=== PATIENT | female | born 1945 | race Caucasian/White ===

== ENCOUNTER 2022-12-31 10:28 | Outpatient (CLI) | payer MEDICARE, SELFPAY ==
--- NOTE | 2022-12-31 11:01 | DI.RAD_ITS ---
Exam(s) XR STANDING ALIGNMENT EXAM: XR STANDING ALIGNMENT CLINICAL HISTORY: TKA planning. TECHNIQUE: 2D digital imaging was performed. Standing AP views were performed from the pelvis throu gh the ankles. COMPARISON: CR XR KNEE 1 OR 2V BILAT-M2 from 06/24/2022 CR XR KNEE 1 OR 2V RT from 06/24/2022 FINDINGS: BONES: No acute fracture is present. No bony destructive lesion is seen. Leg length discrepancy: Marked overall leg length discrepancy, with the left femoral head projecting approximately 2.5 cm superior to the right. JOINTS: Knees: Severe narrowing of the lateral femoral tibial joint of the right knee with prominent periarticular spurring. Marked widening of the medial femoral tibial joint space, marked valgus angu lation. Posterior large loose body. Severe narrowing medial femoral tibial joint of left knee and p eriarticular spurring. The ankle joints are unremarkable. The hip joints not well visualized due to patient body habitus. Grossly maintained. SOFT TISSUE: Lower leg edema. IMPRESSION: Severe degenerative changes of both knees. Marked leg length discrepancy. DATA REPOSITORY: RADIATION DOSE DELIVERED:
== END 2022-12-31 10:29 | disposition home or self-care (01) ==
LOC: DIORS 10:28
PROVIDERS: PCP Internal Medicine; Referring Provider Internal Medicine; Visit Provider Physician Assistant
DX: M17.9 Osteoarthritis of knee, unspecified (principal); M17.11 Unilateral primary osteoarthritis, right knee; M17.12 Unilateral primary osteoarthritis, left knee; I48.91 Unspecified atrial fibrillation; E11.9 Type 2 diabetes mellitus without complications
CPT/HCPCS: 99203; 77073

== ENCOUNTER 2023-02-21 01:09 | Outpatient (CLI) | payer MEDICARE, SELFPAY ==
[2023-02-21 15:00] LABS: HCT 40.1 % (36.0-46.0); HGB 12.8 g/dL (11.2-15.7); MCH 26.4 pg (27.0-33.0); MCHC 31.9 % (32.0-36.0); MCV 83 fL (80-95); MPV 9.4 fL (8.0-11.0); Platelet Count 310 10^3/uL (130-400); RBC 4.85 10^6/uL (3.93-5.22); RDW 14.5 % (11.7-14.6); RDW-SD 42.6 fL; WBC 12.45 10^3/uL (4.4-10.8)
[2023-02-21 16:03] LABS: Anion Gap 7.1 mmol/L (3-11); BUN 22 mg/dL (7-18); CO2 27.9 mmol/L (21.0-32.0); Calcium 9.6 mg/dL (8.5-10.1); Chloride 103 mmol/L (98-107); Estimated GFR 58.02 (mL/min/1.73m2); Glucose 92 mg/dL (74-106); Potassium 3.8 mmol/L (3.5-5.1); Sodium 138 mmol/L (136-145)
== END 2023-02-21 01:10 | disposition home or self-care (01) ==
PROVIDERS: PCP Internal Medicine; Visit Provider Student in an Organized Health Care Education/Training Program
DX: M17.11 Unilateral primary osteoarthritis, right knee (principal); Z01.818 Encounter for other preprocedural examination
CPT/HCPCS: 36415; 80048; 85027

== ENCOUNTER 2023-02-21 14:33 | Outpatient (CLI) | payer MEDICARE, SELFPAY ==
--- NOTE | 2023-02-21 13:30 | DI.RAD_ITS ---
Exam(s) XR KNEE RT 1V EXAM: XR KNEE RT 1V CLINICAL HISTORY: PRE OP R KNEE. TECHNIQUE: 2D digital imaging was performed of the right knee. One views obtained. Lateral views w ere obtained. COMPARISON: CR XR KNEE 1 OR 2V BILAT-M2 from 06/24/2022 CR XR STANDING ALIGNMENT from 12/31/2022 FINDINGS: A single lateral view is obtained. There are degenerative changes seen in the knee with joint space narrowing of the patellofemoral joint. No joint effusion is seen. The bones appear normally mineral ized. A marker ball is included on the image. IMPRESSION: Limited examination shows degenerative changes of the right knee. DATA REPOSITORY: RADIATION DOSE DELIVERED:
== END 2023-02-21 14:34 | disposition home or self-care (01) ==
LOC: DIORS 14:34
PROVIDERS: PCP Internal Medicine; Visit Provider Physician Assistant
DX: M17.11 Unilateral primary osteoarthritis, right knee (principal); Z01.818 Encounter for other preprocedural examination
CPT/HCPCS: 36415; 80048; 85027; 73560

== ENCOUNTER 2023-03-08 06:43 | Day surgery (SDC) | payer MEDICARE, SELFPAY ==
[2023-03-08] VITALS (14 sets, daily range): BP systolic 108–139; BP diastolic 59–87; PULSE 87–99; RESP 13–21; TEMP 36–36.6; O2SAT 90–97; BMI 41.8
[2023-03-08] MEDS: Gabapentin 300 MG CAP PO (07:42)
[2023-03-08] MEDS: Celecoxib 200 MG CAP 400 MG PO (07:42)
[2023-03-08] MEDS: Acetaminophen 500 MG TAB 1000 MG PO (07:43)
[2023-03-08] MEDS: Lactated Ringers 1,000 ML 80 ML IV (08:20)
--- NOTE | 2023-03-08 08:20 | ANES.PREOP_ITS ---
General Info Date of Service Date Performed: 03/08/23 Height: 5 ft 5 in Weight: 114.1 kg Body Mass Index (BMI): 41.8 Surgical Procedure: Operation Date: 03/08/23 09:25 Proposed Procedure Side Surgeon p Knee Total Arthroplasty, OrthAlign, Cemented PS Right Sandeep Willett MD Meds Allergies and Home Medications Allergies Allergy/AdvReac Type Severity Reaction Status Date / Time latex Allergy Skin Rash Verified 03/08/23 07:33 lisinopril Allergy Cough Verified 03/08/23 07:33 Home Medication Medication Instructions Recorded allopurinol 100 mg tablet 100 mg PO DAILY 10/06/22 metformin 500 mg tablet 500 mg PO DAILY 10/06/22 metoprolol succinate 200 mg 200 mg PO DAILY 10/06/22 capsule sprinkle, ext. release 24 hr valsartan 320 mg tablet 320 mg PO DAILY 10/06/22 apixaban 5 mg tablet (Eliquis) 5 mg PO BID 12/31/22 semaglutide 1 mg/dose (4 mg/3 mL) 1 mg subcut QWEEK 12/31/22 subcutaneous pen injector (Ozempic) acetaminophen 500 mg tablet 1,000 mg (2 x 500 mg) PO Q8H PRN 03/08/23 pain #90 tabs celecoxib 200 mg capsule (Celebrex) 200 mg PO BID PRN #60 caps 03/08/23 docusate sodium 100 mg capsule 100 mg PO BID #30 caps 03/08/23 (Colace) gabapentin 300 mg capsule 300 mg PO QHS #14 caps 03/08/23 oxycodone 5 mg tablet 5 mg PO Q4H PRN #18 tabs 03/08/23 pantoprazole 40 mg tablet,delayed 40 mg PO DAILY #14 tabs 03/08/23 release Current Visit Medications: Current Medications Generic Name Dose Route Start Last Admin Trade Name Freq PRN Reason Stop Dose Admin Acetaminophen 1,000 mg 03/08/23 06:00 03/08/23 07:43 Acetaminophen 500 Mg Tab PO 03/08/23 16:00 1,000 mg PREOP ROBBI Administration Celecoxib 400 mg 03/08/23 06:00 03/08/23 07:42 Celecoxib 200 Mg Cap PO 03/08/23 16:00 200 mg PREOP ROBBI Administration Gabapentin 300 mg 03/08/23 06:00 03/08/23 07:42 Gabapentin 300 Mg Cap PO 03/08/23 16:00 300 mg PREOP ROBBI Administration Hydromorphone HCl 0.5 mg 03/08/23 07:38 Hydromorphone 2 Mg/Ml Syr IVP 04/07/23 07:37 Q2H PRN PRN Tranexamic Acid 1,000 mg/ 60 mls @ 360 mls/hr 03/08/23 06:00 Sodium Chloride IVPB 04/07/23 05:59 PREOP ROBBI Ringer's Solution 1,000 mls @ 80 mls/hr 03/08/23 06:00 IV 03/08/23 23:59 INFUSION ROBBI Cefazolin Sodium/Dextrose 2 gm in 50 mls @ 100 mls/hr 03/08/23 06:00 Ancef Duplex IVPB 03/08/23 23:59 PREOP ROBBI Cefazolin Sodium/Dextrose 1 gm in 50 mls @ 100 mls/hr 03/08/23 08:00 Ancef Duplex IVPB 03/09/23 00:29 Q8H ROBBI IV Miscellaneous Supplies 1 each 03/08/23 06:00 Iv Access IV 03/08/23 23:59 DIRECTED ROBBI Ondansetron HCl 4 mg 03/08/23 07:38 Ondansetron 4 Mg/2 Ml Vial IVP 04/07/23 07:37 Q6H PRN PRN Nausea Oxycodone HCl 0 mg 03/08/23 07:38 Oxycodone 5 Mg Tab PO 04/07/23 07:37 Q3H PRN PRN Pain Sodium Chloride 0 ml 03/08/23 06:00 Normal Saline Flush 10 Ml Syr IV 03/08/23 23:59 PRN PRN Sodium Chloride 0 ml 03/08/23 06:00 Normal Saline 10 Ml Vial IJ 03/08/23 23:59 DIRECTED PRN Sterile Water 0 ml 03/08/23 06:00 Water,Injection,Sterile 10 Ml Vial IJ 03/08/23 23:59 DIRECTED PRN PFSH Active Problems Active Problems: Problem Status Onset Code Atrial fibrillation I48.91 Primary osteoarthritis of left knee M17.12 Primary osteoarthritis of right knee M17.11 Type 2 diabetes mellitus E11.9 Hyperlipidemia E78.5 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 Medical History Medical History Cardiac murmur Urinary incontinence Umbilical hernia Severe obesity Gout Benign neoplasm of adrenal gland Surgical History Surgical History H/O bilateral breast reduction surgery H/O tubal ligation History of appendectomy H/O abdominoplasty H/O: hysterectomy Hx of cholecystectomy H/O umbilical hernia repair History of colonoscopy date of procedure 11/29/18 History of esophagogastroduodenoscopy Tobacco Smoking/Tobacco Use Status: Former Tobacco Use Alcohol Alcohol Intake: never Substance Use Substance use: Never Substance use type: does not use Vital Signs and Lab Results Vital Signs Most Recent Vital Signs in EMR: Most Recent Vital Signs Temp Pulse Resp BP Pulse Ox 36.6 C 93 H 18 133/75 97 03/08/23 07:26 03/08/23 07:26 03/08/23 07:26 03/08/23 07:26 03/08/23 07:26 Point of Care Results Point of Care Results: Finger Stick Blood Glucose 107 03/08/23 07:33 Lab Results 02/09/23 14:08 Blood Type / Crossmatch: 2 No Data to Display Complete Blood Count: 2 White Blood Count 12.45 10^3/uL (4.4-10.8) H 02/21/23 14:45 Red Blood Count 4.85 10^6/uL (3.93-5.22) 02/21/23 14:45 Hemoglobin 12.8 g/dL (11.2-15.7) 02/21/23 14:45 Hematocrit 40.1 % (36.0-46.0) 02/21/23 14:45 Platelet Count 310 10^3/uL (130-400) 02/21/23 14:45 Complete Metabolic Panel: 2 Sodium 138 mmol/L (136-145) 02/21/23 14:45 Potassium 3.8 mmol/L (3.5-5.1) 02/21/23 14:45 Chloride 103 mmol/L (98-107) 02/21/23 14:45 Carbon Dioxide 27.9 mmol/L (21.0-32.0) 02/21/23 14:45 BUN 22 mg/dL (7-18) H 02/21/23 14:45 Creatinine 1.0 mg/dL (0.55-1.02) 02/21/23 14:45 Est GFR (CKD-EPI 2020) 58.02 (mL/min/1.73m2) 02/21/23 14:45 Calcium 9.6 mg/dL (8.5-10.1) 02/21/23 14:45 Glucose 92 mg/dL (74-106) 02/21/23 14:45 Liver Function Panel: 2 No Data to Display Coagulation Panel: 2 No Data to Display Cardiac Panel: 2 No Data to Display Arterial Blood Gas: 2 No Data to Display Venous Blood Gas: 2 No Data to Display Pancreas Panel: 2 No Data to Display Thyroid Panel: 2 No Data to Display Infectious Disease: 2 No Data to Display Blood Cultures: 2 No Data to Display Toxicology Panel: 2 No Data to Display Imaging and Studies Imaging and Studies Study information below may be from another EMR and interpreted by another provider. Please see original notes in EMR for more complete details. Echocardiogram Summary: Reviewed ECHO from [facility]. Please see that scanned record. Anesthesia Assessment and Plan Anesthesia History Personal History: No History of Anesthesia Complications Family History: No Family History of Anesthesia Complications Exercise Tolerance Exercise Tolerance: Metabolic Equivalents>4 Pertinent Negatives Pertinent Negatives: No Symptoms of GERD, No Major Pulmonary Symptoms or Complaints and No History of CVA/TIA Cardiac & Pulmonary Exam Cardiac Exam: Heart Murmur Present Pulmonary Exam: Clear Bilateral Breath Sounds Implantable Cardiac Device Does patient have a Pacemaker or an ICD?: No Airway Exam Known Difficult Airway: No Mallampati Class: 2 Mouth Opening: Normal (> 3cm) Thyromental Distance: Greater than 3 cm Neck Range of Motion: Full ROM Neck Circumference: Normal Teeth Condition: Removable Dentures/Plates Upper and Edentulous ASA Classification ASA Score: ASA 3 Emergency Case?: No NPO Status NPO Status: NPO Clears >2 hours, Solids >8 hours Anesthesia Plan Resuscitation Status: Full Code Anesthesia Technique: Spinal Anesthesia Airway Planned: Natural Airway Pain Management: Surgeon and patient request nerve block Monitors Used: Standard Monitors
--- NOTE | 2023-03-08 09:01 | ANES.NERVE_ITS ---
Nerve Block Single Injection Procedure Date and Time Date Performed: 03/08/23 Procedure Start: 08:51 Location Where Procedure Performed Procedure Location: Day Surgery Unit Reason Performed: Postoperative Analgesia Requesting Provider: Sandeep Willett Timeout Performed Timeout Performed: Yes Monitoring Used ECG, Blood Pressure and SpO2 Sterility Sterility: Hand Hygiene, Surgical Cap, Surgical Mask, Sterile Gloves and Chlorhexidine Sedation Given During Procedure Sedation Given (Indicate Dose Given): No Sedation given Patient Mental Status Patient Mental Status: Awake Nerve Block 1st Nerve Block: Laterality: Right Block Type: Adductor Canal Ultrasound Image Saved?: Yes Needle / Catheter Used: 100mm SonoPlex II Local Anesthetic Bolus (Indicate Dose Given): Lidocaine used for local infiltration of skin, Injected in 3-5ml increments after negative blood aspiration and Bupivacaine 0.25% Dose:: 15 ml Additives (Indicate Dose Given): None Ultrasound: Sterile probe cover and gel used Nerve Stimulator: Supplement to Ultrasound use and No twitch or parast hesia noted < 0.5 mA Paresthesia: None Procedure Tolerated: No Complications and Patient tolerated well Procedure Outcome: Successful Performed By: Shadi Mosley
[2023-03-08] MEDS: ceFAZolin 2 GM/50 ML BAG IVPB (09:29)
[2023-03-08] MEDS: ceFAZolin 1 GM/50 ML BAG IVPB (10:06)
--- NOTE | 2023-03-08 12:41 | W.PM.OP ---
Date of service: 03/08/23 Time of Service: 10:00 Operative Note Operative Note DATE OF PROCEDURE: 03/08/23 PRE-OP DIAGNOSIS: Right Knee Osteoarthritis with Valgus Deformity POST-OP DIAGNOSIS: same PROCEDURE: Right Total Knee Replacement with Intraoperative Navigation SURGEON: Sandeep Willett AEROSPACE ASSEMBLER: Jacquelyn Castillo ANESTHESIA TYPE: General LMA/ETT Refer to Anesthesia Record ESTIMATED BLOOD LOSS: 250 PATHOLOGY: none sent TOURNIQUET TIME: 0 COMPLICATIONS: None Patient was transported to: PACU Patient's condition: stable Implants: 1. Depuy Attune Cementless Cruciate Retaining Femoral Component, Size 6 2. Depuy Attune Cementless Fixed Bearing Tibial Component, Size 5 3. Depuy Attune 6x12 CR/FB Poly 4. Depuy Attune Patellar Component, Size 35 Indications: I have seen Monique in clinic for symptoms of RIGHT knee arthritis with a significant valgus deformity. Monique has exhausted nonoperative methods and was having significant limitations in daily function and desired better function and less pain. I discussed the technical details of a knee replacement. I explained the risks of the procedure to include, but not limited to, bleeding, infection, pain, stiffness, fracture, damage to nerves and vessels, damage to muscles and tendons, loosening, need for repeat procedure, blood clot and cardiopulmonary demise. Despite these risks, she elected to proceed. Findings: There was significant signs of arthritis throughout the knee, particularly of the lateral tibia. Procedure Description: Monique was greeted in the preoperative holding area where the correct side was identified and marked. The consent was reviewed with the patient and signed. The history and physical was updated. All questions were answered. Preoperative mediacations were administered: Acetaminophen 1000mg, Celebrex 400mg, and Gabapentin 300mg. An adductor canal block was then administered by the anesthesia team in the PACU. Monique was taken back to the operating room. A spinal anesthestic was then attempted but was unsuccessful and thus converted to a general anesthetic. The patient was placed into the supine position on the operating room table. A nonsterile tourniquet was placed high onto the leg. Posts were placed for positioning during the procedure. All bony prominences were well padded. Prophylactic antibiotics in the form of Cefazolin were administered. 1g of Tranxemic Acid was given intravenously within 30 minutes of incision. The right leg was then prepped with Chloraprep and draped in a standard fashion with impervious stockinette. A second prep with Chloraprep was performed prior to application of Iodine impregnated skin protection. A timeout to confirm correct identity, side and site, procedure, allergies, anesthesia, and medical concerns was performed. With the knee in some flexion, a midline incision was made overlying the knee. Full thickness skin flaps were raised once the extensor mechanism was encountered. These were raised medially and laterally. Any bleeding was controlled with electrocautery. Once the extensor mechanism was fully exposed, a medial parapatellar arthrotomy was performed in a flexed position. All bleeding from the arthrotomy and the geniculate arteries was coagulated. A medial subperiosteal peel was performed with electrocautery to the midcoronal plane. The fat pad was removed while keeping the patellar tendon protected. The anterior distal femur synovium was removed for later visualization. The ACL and PCL were resected and the anterior horn of the lateral meniscus was transected. The knee was then flexed with the patella everted. Large osteophytes from the tibia were removed. Large osteophytes from the femur were removed. A single starting pin was then placed 1cm anterior to the PCL insertion and the notch in the direction of the femoral head. The OrthoAlign device was applied over the pin. It was oriented to be in line with the epicondylar axis and the trochlear groove. It was then pinned into place. The navigation computer was then turned on and calibrated. The distal femur cut was set at 0.5 degrees valgus and 3.5 degrees flexion. The distal femur cutting guide then was positioned for a 9mm cut. The distal femur was cut with an oscillating saw while protecting the soft tissues. The tibia was then addressed. The OrthoAlign device was placed over the tibial tubercle and medial tibia and secured into position. Once again, OrthoAlign was calibrated and then set for a 1 degree varus cut and 5 degrees of posterior slope. With this locked into position, the cut thickness stylus was used to assess cut thickness. The lateral side, most involved side, was set for a 3mm cut. This was then held in position and pinned into place with 2 additional pins and a cross pin for stability. The medial and lateral collateral ligaments were protected and the cut was performed. With this completed, it was assessed and noted to be of appropriate dimensions. The guide and OrthoAlign was removed. A spacer block was inserted and the knee was brought into extension to ensure enough space was present. . The Orthoalign gap balancing device was then placed in extension. This was used to ensure that the ligaments were properly balanced with up to 2 to 3 mm laxity laterally compared medially. The extension gap was measured as 23mm. The knee was then brought into 90 degrees of flexion and the ligament block handler was once again placed. Under the same amount of force the flexion gap was measured. The Attune specific jig was placed and the flexion gap was made to match the extension gap. The femur was then sized as a size 6. The 4-in-1 cutting guide was the placed. An christina wing was used to confirm appropriate position of the anterior cut to avoid notching. This cutting guide was ensured to be flush on the cut surface and then pinned into place with headed pins. While protecting the soft tissues, quad tendon, and collateral ligaments, the anterior and posterior cuts were performed with a saw. The central two pins were removed and the posterior and anterior chamfers were cut next. The notch-cutting guide was placed. This was pinned to lateralize the femoral component as much as possible while keeping it flush on the cut surface. This was then pinned into position. A saw was used to make the notch cut. A rasp smoothed the cut surfaces. The medial and lateral menisci were removed. A trial femoral component was then inserted, impacted down to the cut surfaces, and the lug holes were drilled. A provisional trial tibial component was placed and the knee was brought through range of motion. The polyethylene was trialed until there was good flexion and extension with excellent stability to the medial and lateral collaterals. The patella was tracking without thumbs. A size 12 polyethylene component provided the best range of motion and stability with less than 2mm gapping with medial and lateral stress and full extension without significant hyperextension. The tibial cut surface was fully exposed. The tibia was then sized as a 5. The tibia had been previously marked during trialing to correspond to the center of the tibial component to help with rotation. The trial was aligned to this haile, approximately rotated to the medial 1/3rd of the tibial tubercle. The trial was pinned into place. The tibia was prepared with a reamer and a keel punch and lug holes. The knee was then brought into extension and the patella was measured as 22mm. Using the patellar clamp and cut guide, this was resected to a flat surface with at least 13mm of thickness remaining. The size 35 patella fit the best. This was oriented and then clamped into position. The lugs were drilled. The trial components were removed. The final components were opened on the back table. The periosteal and capsular tissues, especially posteriorly, around the knee were then systematically injected with a periarticular cocktail consisting of 246mg of Ropivacaine, 0.5mg of Epinephrine, 0.08mg of Clonidine, and 30mg of Ketorolac, diluted to 100cc. On the back table, with the implants opened, the cement was mixed. One batch of high viscosity cement was prepared with vacuum assistance. After the cement was ready a small amount was placed on the cut surface of the patella and the patellar button was clamped into position and held. While the cement was hardening, the cementless knee components were placed. Starting with the tibial component, the tibia was subluxed anteriorly and the lug holes of the component were lined up. The tibia was then impacted with an impactor and mallet until the tibial component was in contact with the tibia. Then, the femoral component was inserted. The lug holes were aligned and the component was impacted into position. The final polyethylene component was inserted. The knee was irrigated with Irrisept chlorhexadine solution. This was allowed to sit in the knee for 3 minutes and then it was thoroughly irrigated out with saline. After the cement had finally cured, approximately 15min, the clamp was removed from the patella and the knee was taken through range of motion. The patella was tracking with a no-thumbs technique. The capsule was then reapproximated with a No. 1 Vicryl at multiple locations. The capsule was finally closed with a No. 2 Stratafix, barbed suture. Deep tissues were then reapproximated with 0 Vicryl and 2-0 Vicryl. The skin was closed with a running 3-0 Monocryl in a subcuticular fashion. This was reinforced with skin glue. A Mepilex silver dressing was applied along with a [id number] ALEX wrap. A CryoCuff was applied. Monique was transferred to the hospital bed without difficulty an suffering no apparent complication. Dot has a good prognosis. Physical therapy will start today and without restrictions, weight-bearing as tolerated. Her home dose of Apixaban will be used for DVT prophylaxis.
--- NOTE | 2023-03-08 12:44 | W.ANESPOSTOP ---
Postoperative Evaluation Date, Time and Location Date Performed: 03/08/23 Time Performed: 12:45 Patient Location: PACU Vital Signs Most Recent Imported Vital Signs: Most Recent Vital Signs Temp Pulse Resp BP Pulse Ox 36.4 C L 99 H 17 114/66 94 03/08/23 12:10 03/08/23 12:25 03/08/23 12:25 03/08/23 12:25 03/08/23 12:25 Pain Score Most Recent Pain Score: Most Recent Pain Score Pain Level 4 03/08/23 12:25 Patient reported 0/10 to me. It feels heavy Assessment Mental Status: Awake (Alert & Oriented to Patient Baseline) Airway and Respiratory Function: Patent airway with normal (patient baseline) respiratory exam Cardiovascular Function: Hemodynamically Stable Hydration Status: Adequately Hydrated Nausea & Vomiting: No Nausea or Vomiting Pain: Pt. Denies Any Pain Peripheral Nerve Block: Regional nerve block not resolved at time of post operative discharge
--- NOTE | 2023-03-08 13:22 | W.PM.DS.N ---
Date of service: 03/08/23 Time of Service: 12:45 DS: Diagnosis Discharge Diagnosis (1) Primary osteoarthritis of right knee: Status: Chronic Discharge Plan Disposition Patient Disposition: Home Condition: Good Discharge Details Reason For Visit: Right knee DJD Attending Provider: Sandeep Willett Primary Care Provider: Rachael Mejia Home Meds and New Rx's Prescriptions: New acetaminophen 500 mg tablet 1,000 mg PO Q8H PRN Qty: 90 0RF Rx Instructions: Take two tablets up to every 8 hours as needed for pain celecoxib [Celebrex] 200 mg capsule 200 mg PO BID PRNQty: 60 0RF Rx Instructions: Take one tablet twice daily for pain and inflammation docusate sodium [Colace] 100 mg capsule 100 mg PO BID Qty: 30 0RF pantoprazole 40 mg tablet,delayed release (DR/EC) 40 mg PO DAILY Qty: 14 0RF gabapentin 300 mg capsule 300 mg PO QHS Qty: 14 0RF Rx Instructions: Take one tablet at bedtime oxycodone 5 mg tablet 5 mg PO Q4H PRNQty: 18 0RF Rx Instructions: Take one tablet up to every 4 hours as needed for severe postoperative pain Continued allopurinol 100 mg tablet 100 mg PO DAILY metformin 500 mg tablet 500 mg PO DAILY metoprolol succinate 200 mg capsule,sprinkle,ER 24hr 200 mg PO DAILY valsartan 320 mg tablet 320 mg PO DAILY Ozempic 1 mg/dose (4 mg/3 mL) pen injector 1 mg subcut QWEEK Held Eliquis 5 mg tablet 5 mg PO BID Hold Instructions: Resume on 03/09/23. Resume taking normally tomorrow morning (03/09/23) Discharge Instructions Additional Instructions: Total Knee Discharge Instructions Activity: The most important activity is to walk and to work on gentle motion (both flexion and extension). You should try to take short walks a few times a day. It is important that when resting you work on keeping the knee straight. Avoid putting a pillow behind the knee as this will encourage flexion. Work on range of motion exercises as provided by Physical Therapy. - Start outpatient physical therapy within 2 weeks. - You should wear the LAKE hose on both legs for 2 weeks. You may remove these at night. You may also use any compression sock in place of the LAKE hose. - Utilize [employer] to review exercises, see videos on exercises and obtain basic information pertaining to your surgery and your recovery. Dressing: Remove the Kaden wrap by 2 days after your surgery and put on the LAKE stocking given to you from the hospital. Keep the surgical dressing (underneath the KADEN wrap) in place for at least one week. After the first week it may be removed and replaced with light gauze and tape or nothing. The wound and dressing may get wet after 3 days but avoid soaking the dressing or otherwise it will need to be changed. Many people prefer covering the dressing with cling wrap (saran wrap) to minimize it from getting soaked. If it gets wet, just pat dry. If it starts to peel off then it will need to be changed. Medications: - You should take Tylenol and anti-inflammatory Celebrex as your primary pain control medications. If the Celebrex is too expensive or not covered, please call the office for another alternative (Advil/Ibuprofen or Naproxen/Aleve) - You have been prescribed a stronger pain medication Oxycodone for breakthrough pain, take as needed as prescribed. - You have also been prescribed a stomach acid reduction agent Pantoprozole to help reduce stomach acid and reflux. - You have been prescribed Gabapentin to take at night for restlessness and nerve pain. - You will resume taking your baseline anticoagulation - Eliquis tomorrow morning for DVT prevention. - If you have constipation you should take Colace (which has been prescribed) or Miralax (which is available [id number]). It takes most people 3-4 days to have a bowel movement. Follow-up: 2 weeks If you have any acute concerns or questions, please do not hesitate to contact the office at [phone]. You may contact Dr. Willtet with any questions after hours through the hospital at [phone] or on his cell phone at [phone]. Stand Alone Forms: Anesthesia Discharge InstFlako, Bunny.Nerve Block Instructions, Sofía Senior (DSU) Referrals: Sandeep Willett MD [ [facility] STAFF PHYSICIAN] - Equipment/Supplies: Walker Activity:: Elevate Remove Dressings/Wound Care:: Do Not Remove Shower/Bathe:: 72 hours and Cover Diet:: As Tolerated Discharge Orders Discharge Orders: Discharge Order (Routine); Ordered 03/08/23 Ordered By: Alyssia Davis DS: Summary Time Spent with Patient providing and/or coordinating discharge services: Less than 30 minutes Status at Discharge Functional status at discharge: uses cane/walker Overall status at discharge: patient is progressing back to baseline Mental Status: mental status grossly normal Speech and Movement: speech and movement normal Mood: congruent mood Affect: normal affect Exam Psych Mental Status: mental status grossly normal Speech and Movement: speech and movement normal Mood: congruent mood Affect: normal affect DS: Data Vitals/I&O Vitals and I&O: Intake & Output 03/07/23 03/07/23 03/08/23 11:59 23:59 11:59 Weight 251 lb 0.011 oz PFSH All Active Problems Atrial fibrillation (Chronic) Primary osteoarthritis of left knee (Acute) Primary osteoarthritis of right knee (Chronic) Type 2 diabetes mellitus (Acute) Hyperlipidemia (Acute) Acquired cystic kidney disease (Acute) She denies this Medical History Cardiac murmur Urinary incontinence Umbilical hernia Severe obesity Gout Benign neoplasm of adrenal gland Surgical History H/O bilateral breast reduction surgery H/O tubal ligation History of appendectomy H/O abdominoplasty H/O: hysterectomy Hx of cholecystectomy H/O umbilical hernia repair History of colonoscopy date of procedure 11/29/18 History of esophagogastroduodenoscopy Social History Smoking/Tobacco Use Status: Former Tobacco Use Quit Date: 04/18/07 Smoking risk assessment performed?: Yes Alcohol Intake: never Drug use: Never Substance use type: does not use Housing: house Do you feel safe at home: Yes Do you feel safe in your relationship?: Yes Time Spent with Patient Time Spent with Patient: <45 minutes Time was spent: preparing to see the patient(eg.review tests), counseling the patient and care coordination
[2023-03-08] MEDS: oxyCODONE 5 MG TAB PO (14:12)
--- NOTE | 2023-03-08 16:10 | PT.INIE ---
PT Notes Visit Reasons: Right knee DJD Physical Therapy Day Surgery Initial Evaluation Date: 03/08/2023 Referring Doctor: KEVIN Bloom PT Orders: PT CONSULT: S/P Ortho Surgery Precautions: WBAT on the R LE with AD. Patient Profile/Admitting Diagnosis: Sylvia is a 77-year-old female with degenerative joint disease of the right knee and is status post right total knee arthroplasty on postoperative day 0. PMHX: Medical History (Updated 02/21/23 @ 14:36 by Alyssia Davis) Cardiac murmur Urinary incontinence Umbilical hernia Severe obesity Gout Benign neoplasm of adrenal gland Surgical History (Updated 02/21/23 @ 13:56 by Alyssia Davis) H/O bilateral breast reduction surgery H/O tubal ligation History of appendectomy H/O abdominoplasty H/O: hysterectomy Hx of cholecystectomy H/O umbilical hernia repair History of colonoscopy date of procedure 11/29/18 History of esophagogastroduodenoscopy Social History/Home Situation: Patient lives with in a private room with ramp to enter. will have support of daughters carlton she goes home today. Uses [facility] at baseline indoors and outdoors. Equipment Owned/DME: [facility] Subjective: Patient reports 4/10 pain in the surgical incision. Objective: General Observation: Seated on bedside chair. ALEX wraps to R LE. Cryocuff to R LE. TEDS to L leg. Mental Status: Somewhat lethargic but oriented x 4 Pain: As above ROM: Right Lower Extremity: Hip flexion WFL. Hip abduction WFL. Knee flexion 30 degrees to 100 degrees. Knee extension -30 degrees. Ankle dorsiflexion WFL. Ankle plantarflexion WFL. Left Lower Extremity: Hip flexion WFL. Hip abduction WFL. Knee flexion WFL. Ankle dorsiflexion WFL. Ankle plantarflexion WFL. Strength: Right Lower Extremity: Hip flexors 4/5. Hip abductors 4/5. Knee flexors 3-/5. Knee extensors 3-/5. Ankle dorsiflexors 4/5. Ankle plantarflexors 5/5. Left Lower Extremity:Hip flexors 5/5. Hip abductors 5/5. Knee flexors 5/5. Knee extensors 5/5. Ankle dorsiflexors 5/5. Ankle plantarflexors 5/5. Sensation: Intact as to pain and light pressure in B LE Bed Mobility/Transfers: Minimal verbal cues provided for hand placement, movement sequence, and AD management Sit to stand contact guard assist Stand to sit stand by assist Bed to chair stand by assist Gait: Facilitate safe and correct performance of level surface ambulation covering a distance of 150 feet with reciprocal steps with a heel toe gait pattern requiring only in standby assist with minimal verbal cueing for AD management, gait pattern, and posture. Slight genu valgum noted on the right with increased right external tibial torsion and out-toeing of the right foot. Patient verbalized this is much better compared to presurgical gait pattern. Balance: Static Sitting: Normal Dynamic Sitting: Normal Static Standing: Fair Dynamic Standing: Fair Special Tests: Mobility Limitations Standardized Measure [facility] 6 clicks Basic Mobility Inpatient Short Form: Raw Score: 20 CMS Score: 36% deficit Informed Consent/Education: Patient instructed in purpose of PT consult. Packet containing TKA exercise protocol has been given to patient. Education and training on initial set of exercises that can be done at home have been completed with patient. Trained patient with correct performance of exercises below to maximize motor control, joint flexibility, soft tissue extensibility of the R knee musculature: Access Code: [email or web address] URL: [email or web address] Date: 03/09/2023 Prepared by: Constance Wesley Exercises - Supine Quad Set - 1 x daily - 7 x weekly - 1 sets - 10 reps - 5 hold - Supine Heel Slide - 1 x daily - 7 x weekly - 1 sets - 10 reps - 5 hold - Supine Ankle Pumps - 1 x daily - 7 x weekly - 1 sets - 10 reps - 5 hold - Small Range Straight Leg Raise - 1 x daily - 7 x weekly - 1 sets - 10 reps - 5 hold - Seated March - 1 x daily - 7 x weekly - 1 sets - 10 reps - 5 hold Assessment: Patient requires the use of a front wheeled walker for all mobility ADL performance to maximize independence and reduce fall risk. Patient presents with clinical signs and symptoms consistent with current/admitting diagnoses that have resulted to mobility limitations, gait instability, generalized weakness, and impairment of motor control as demonstrated by the following impairment level findings: 1. Decreased strength to right knee major muscle groups 2. Impaired standing balance 3. Limitation of joint range of motion in right knee Impairments are contributing to the following functional limitations: 1. Inability to safely ambulate without assistive device 2. Increase completion time for mobility ADL performance 3. Increased fall risk Patient is assessed as a 79697 complexity based on the following: History: 77-year-old female with impairment level findings, functional limitations, and past medical history as indicated above Examination: Demonstrable impairment in strength, balance, and mobility level with underlying impairments and functional limitations as documented above Presentation: [id number] moderate complexity Decision Making: Evolving Goals: N/A. PT evaluation and 1-2 treatment sessions only for functional mobility training using recommended AD and for HEP instruction. Plan of Care/Treatment Plan: N/A. PT evaluation and 1-2 treatment session only for functional mobility training using recommended AD and for HEP instruction. DISCHARGE RECOMMENDATIONS: Home when medically cleared by orthopedic surgeon. Recommend outpatient PT services in order to optimize functional mobility outcomes and facilitate return to independent community ambulation without an assistive device. TREATMENT CODE/TIME: 97233 x 20 minutes for 1 unit, 53399 x 24 units for 2 units beginning at 15:15 PM. Thank you for the opportunity to participate in the care of this patient. Constance Wesley PT, DPT, CLT [facility] [place], [place]
== END 2023-03-08 16:23 | disposition home or self-care (01) ==
PROVIDERS: PCP Internal Medicine; Visit Provider Student in an Organized Health Care Education/Training Program
PROC: (CPT 27447; principal; 2023-03-08 09:15)
DX: M17.11 Unilateral primary osteoarthritis, right knee (principal); M21.061 Valgus deformity, not elsewhere classified, right knee; Z68.41 Body mass index [BMI] 40.0-44.9, adult; E66.01 Morbid (severe) obesity due to excess calories; Z79.01 Long term (current) use of anticoagulants; I48.91 Unspecified atrial fibrillation; E11.9 Type 2 diabetes mellitus without complications; E78.5 Hyperlipidemia, unspecified
CPT/HCPCS: 20985; 27447; C1776; 76942; 97162; 97530; J0690; J1100; J2371; J2405

== ENCOUNTER 2023-03-24 14:31 | Outpatient (CLI) | payer MEDICARE, SELFPAY ==
--- NOTE | 2023-03-24 10:00 | DI.RAD_ITS ---
Exam(s) XR STANDING ALIGNMENT XR KNEE RT 1V EXAM: XR STANDING ALIGNMENT CLINICAL HISTORY: 1ST POST OP S/P R TKA. TECHNIQUE: 2D digital imaging was performed. Standing AP views were performed from the pelvis throu gh the ankles. COMPARISON: CR XR STANDING ALIGNMENT from 12/31/2022 CR XR KNEE RT 1V from 02/21/2023 CR XR KNEE RT 1V from 03/24/2023 FINDINGS: Exam is limited by patient body habitus. Severe scoliosis noted in the lumbar spine. BONES: No acute fracture is present. No bony destructive lesion is seen. Leg length discrepancy: Approximately 2 cm to level of the femoral heads with left projecting super ior to the right. JOINTS: Knees: Right total knee prosthesis. No abnormal surrounding bony lucencies. Mild valgus ang ulation. Severe degenerative changes medial femoral tibial joint of the left knee. The ankle joints are unremarkable. The hip joints are unremarkable. SOFT TISSUE: Edema right leg. IMPRESSION: Severe degenerative changes medial femoral tibial joint left knee. Status post right knee prosthesi s.. Approximately 2 cm leg length discrepancy. DATA REPOSITORY: RADIATION DOSE DELIVERED:
== END 2023-03-24 14:32 | disposition home or self-care (01) ==
LOC: DIORS 14:31
PROVIDERS: PCP Internal Medicine; Referring Provider Internal Medicine; Visit Provider Student in an Organized Health Care Education/Training Program
DX: Z96.651 Presence of right artificial knee joint (principal); Z47.1 Aftercare following joint replacement surgery; M17.12 Unilateral primary osteoarthritis, left knee
CPT/HCPCS: 73560; 77073

== ENCOUNTER → 2023-04-22 10:31 | Outpatient (BNVA) | payer MEDICARE, SELFPAY | PROVIDERS: PCP Internal Medicine; Referring Provider Internal Medicine; Visit Provider Student in an Organized Health Care Education/Training Program | DX: Z47.1 Aftercare following joint replacement surgery (principal); Z96.651 Presence of right artificial knee joint; M17.12 Unilateral primary osteoarthritis, left knee ==

== ENCOUNTER → 2023-04-27 07:45 | Outpatient (BNVA) | payer MEDICARE, SELFPAY | PROVIDERS: PCP Internal Medicine; Referring Provider Internal Medicine; Visit Provider Student in an Organized Health Care Education/Training Program ==

== ENCOUNTER 2023-04-29 06:03 | Day surgery (SDC) | payer MEDICARE, SELFPAY ==
--- NOTE | 2023-04-28 17:20 | ANES.PREOP_ITS ---
General Info Date of Service Date Performed: 04/29/23 Height: 5 ft 5 in Weight: 114.1 kg Body Mass Index (BMI): 41.8 Surgical Procedure: Operation Date: 04/29/23 07:40 Proposed Procedure Side Surgeon p Knee Total Arthroplasty, Cementless CR Left Sandeep Willett MD Meds Allergies and Home Medications Allergies Allergy/AdvReac Type Severity Reaction Status Date / Time latex Allergy Skin Rash Verified 04/29/23 06:17 lisinopril Allergy Cough Verified 04/29/23 06:17 Home Medication Medication Instructions Recorded allopurinol 100 mg tablet 100 mg PO DAILY 10/06/22 metformin 500 mg tablet 500 mg PO DAILY 10/06/22 metoprolol succinate 200 mg 200 mg PO DAILY 10/06/22 capsule sprinkle, ext. release 24 hr valsartan 320 mg tablet 320 mg PO DAILY 10/06/22 apixaban 5 mg tablet (Eliquis) 5 mg PO BID 12/31/22 semaglutide 1 mg/dose (4 mg/3 mL) 1 mg subcut QWEEK 12/31/22 subcutaneous pen injector (Ozempic) acetaminophen 500 mg tablet 1,000 mg (2 x 500 mg) PO Q8H PRN 03/08/23 pain #90 tabs celecoxib 200 mg capsule (Celebrex) 200 mg PO BID PRN #60 caps 03/08/23 ibuprofen 400 mg tablet (IBU) 400 mg PO ONCE 04/29/23 simvastatin 20 mg tablet mg 04/29/23 torsemide 10 mg tablet mg 04/29/23 Current Visit Medications: Current Medications Generic Name Dose Route Start Last Admin Trade Name Sha PRN Reason Stop Dose Admin Acetaminophen 1,000 mg 04/29/23 06:00 Acetaminophen 500 Mg Tab PO 05/29/23 05:59 PREOP ROBBI Celecoxib 400 mg 04/29/23 06:00 Celecoxib 200 Mg Cap PO 05/29/23 05:59 PREOP ROBBI Gabapentin 300 mg 04/29/23 06:00 Gabapentin 300 Mg Cap PO 05/29/23 05:59 PREOP ROBBI Tranexamic Acid 1,000 mg/ 60 mls @ 360 mls/hr 04/29/23 06:00 Sodium Chloride IVPB 05/29/23 05:59 PREOP ROBBI Ringer's Solution 1,000 mls @ 80 mls/hr 04/29/23 06:00 IV 04/29/23 23:59 INFUSION ROBBI Cefazolin Sodium 3,000 mg/ 100 mls @ 200 mls/hr 04/29/23 06:00 Sodium Chloride IV 04/29/23 16:00 PREOP ROBBI IV Miscellaneous Supplies 1 each 04/29/23 06:00 Iv Access IV 04/29/23 23:59 DIRECTED ROBBI Sodium Chloride 0 ml 04/29/23 06:00 Normal Saline Flush 10 Ml Syr IV 04/29/23 23:59 PRN PRN Sodium Chloride 0 ml 04/29/23 06:00 Normal Saline 10 Ml Vial IJ 04/29/23 23:59 DIRECTED PRN Sterile Water 0 ml 04/29/23 06:00 Water,Injection,Sterile 10 Ml Vial IJ 04/29/23 23:59 DIRECTED PRN PFSH Active Problems Active Problems: Problem Status Onset Code Arthritis of left knee M17.12 History of total right knee replacement 03/08/23 Z96.651 Atrial fibrillation I48.91 Type 2 diabetes mellitus E11.9 Hyperlipidemia E78.5 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 stated she said it was nothing to worry about, just gave me blood thinners (Pt. has Afib) Urinary incontinence Umbilical hernia Severe obesity Gout Benign neoplasm of adrenal gland Medical History Comments:: Instructed to take Metoprolol AM of only Surgical History Surgical History H/O bilateral breast reduction surgery H/O tubal ligation History of appendectomy H/O abdominoplasty H/O: hysterectomy Hx of cholecystectomy H/O umbilical hernia repair History of colonoscopy date of procedure 11/29/18 History of esophagogastroduodenoscopy Tobacco Smoking/Tobacco Use Status: Former Tobacco Use Alcohol Alcohol Intake: never Substance Use Substance use: Never Substance use type: does not use Vital Signs and Lab Results Vital Signs Most Recent Vital Signs in EMR: Temp Pulse Resp BP Pulse Ox 36.3 C L 112 H 20 158/79 H 98 04/29/23 06:28 04/29/23 06:28 04/29/23 06:28 04/29/23 06:28 04/29/23 06:28 Lab Results Blood Type / Crossmatch: No Data to Display Complete Blood Count: No Data to Display Complete Metabolic Panel: No Data to Display Liver Function Panel: 2 No Data to Display Coagulation Panel: No Data to Display Cardiac Panel: No Data to Display Arterial Blood Gas: No Data to Display Venous Blood Gas: No Data to Display Pancreas Panel: No Data to Display Thyroid Panel: No Data to Display Infectious Disease: No Data to Display Blood Cultures: No Data to Display Toxicology Panel: No Data to Display Anesthesia Assessment and Plan Anesthesia History Personal History: No History of Anesthesia Complications Family History: No Family History of Anesthesia Complications Exercise Tolerance Exercise Tolerance: Metabolic Equivalents>4 Cardiac & Pulmonary Exam Cardiac Exam: Normal S1/S2 Heart Sounds Pulmonary Exam: Clear Bilateral Breath Sounds Implantable Cardiac Device Does patient have a Pacemaker or an ICD?: No Airway Exam Known Difficult Airway: No Mallampati Class: 2 Mouth Opening: Normal (> 3cm) Thyromental Distance: Greater than 3 cm Neck Range of Motion: Full ROM Neck Circumference: Normal Teeth Condition: Removable Dentures/Plates Upper and Edentulous ASA Classification ASA Score: ASA 3 Emergency Case?: No NPO Status NPO Status: NPO Clears >2 hours, Solids >8 hours Anesthesia Plan Resuscitation Status: Full Code Anesthesia Technique: General Anesthesia Airway Planned: Endotracheal Tube Pain Management: Surgeon and patient request nerve block Monitors Used: Standard Monitors Preoperative Comments:: 77 yo female for TKA. Sig PMHx: HTN (valsartan), afib (apixaban, metoprolol), DM2 (semaglutide, metformin), former smoker. Echo 2022: LVEF 65%, mild , no sig mitral, mod TR. Previous Anes: - TKA, GA due to unable to get spinal, prop, phenyl gtt, castillo 2 grade 1. In today with HR elevated, didn't take her metoprolol this morning because she forgot. Metoprolol IV given in DSU with good effect. Discussed inability to spinal the last time and she would like to proceed with GA as the primary plan.
[2023-04-29] VITALS (15 sets, daily range): BP systolic 106–158; BP diastolic 56–95; PULSE 83–112; RESP 13–22; TEMP 36.1–36.7; O2SAT 93–98; BMI 41.8
[2023-04-29] MEDS: Lactated Ringers 1,000 ML 80 ML IV (06:40)
[2023-04-29] MEDS: Celecoxib 200 MG CAP 400 MG PO (06:56)
[2023-04-29] MEDS: Gabapentin 300 MG CAP PO (06:56)
[2023-04-29] MEDS: Acetaminophen 500 MG TAB 1000 MG PO (06:56)
--- NOTE | 2023-04-29 07:14 | PDOC.DSDIS_ITS ---
Date of service: 04/29/23 Time of Service: 07:14 Discharge Plan Disposition Patient Disposition: Home Condition: Good Discharge Details Reason For Visit: L TKR Attending Provider: Sandeep Willett Primary Care Provider: Rachael Mejia Home Meds and New Rx's Prescriptions: New acetaminophen 500 mg tablet 1,000 mg PO TID Qty: 90 3RF celecoxib 200 mg capsule 200 mg PO BID Qty: 60 0RF pantoprazole 40 mg tablet,delayed release (DR/EC) 40 mg PO DAILY Qty: 30 0RF gabapentin 300 mg capsule 300 mg PO QHS Qty: 14 0RF oxycodone 5 mg tablet 5 mg PO Q4H MDD 6 tabs PRN (Reason: pain) Qty: 20 0RF Continued Eliquis 5 mg tablet 5 mg PO BID Hold Instructions: Resume on 03/09/23. Resume taking normally tomorrow morning (03/09/23) Patient Comments: pt unsure allopurinol 100 mg tablet 100 mg PO DAILY metformin 500 mg tablet 500 mg PO DAILY metoprolol succinate 200 mg capsule,sprinkle,ER 24hr 200 mg PO DAILY valsartan 320 mg tablet 320 mg PO DAILY Ozempic 1 mg/dose (4 mg/3 mL) pen injector 1 mg subcut QWEEK Patient Comments: pt. unsure of last time torsemide 10 mg tablet Patient Comments: TAKE ONE TABLET BY MOUTH EVERY DAY simvastatin 20 mg tablet Patient Comments: TAKE ONE TABLET BY MOUTH AT BEDTIME Discontinued acetaminophen 500 mg tablet 1,000 mg PO Q8H PRN Qty: 90 0RF Rx Instructions: Take two tablets up to every 8 hours as needed for pain celecoxib [Celebrex] 200 mg capsule 200 mg PO BID PRNQty: 60 0RF Rx Instructions: Take one tablet twice daily for pain and inflammation ibuprofen [IBU] 400 mg tablet 400 mg PO ONCE Discharge Instructions Additional Instructions: Total Knee Discharge Instructions Activity: The most important activity is to walk and to work on gentle motion (both flexion and extension). You should try to take short walks a few times a day. It is important that when resting you work on keeping the knee straight. Avoid putting a pillow behind the knee as this will encourage flexion. Work on range of motion exercises as provided by Physical Therapy. - Start outpatient physical therapy within 2 weeks. - You should wear the LAKE hose on both legs for 2 weeks. You may remove these at night. You may also use any compression sock in place of the LAKE hose. - Utilize [employer] to review exercises, see videos on exercises and obtain basic information pertaining to your surgery and your recovery. Dressing: Remove the Kaden wrap by 2 days after your surgery and put on the LAKE stocking given to you from the hospital. Keep the surgical dressing (underneath the KADEN wrap) in place for at least one week. After the first week it may be removed and replaced with light gauze and tape or nothing. The wound and dressing may get wet after 3 days but avoid soaking the dressing or otherwise it will need to be changed. Many people prefer covering the dressing with cling wrap (saran wrap) to minimize it from getting soaked. If it gets wet, just pat dry. If it starts to peel off then it will need to be changed. Medications: - You should take Tylenol and anti-inflammatory Celebrex as your primary pain control medications. If the Celebrex is too expensive or not covered, please call the office for another alternative (Advil/Ibuprofen or Naproxen/Aleve) - You have been prescribed a stronger pain medication Oxycodone for breakthrough pain, take as needed as prescribed. - You have also been prescribed a stomach acid reduction agent Pantoprozole to help reduce stomach acid and reflux. - You have been prescribed Gabapentin to take at night for restlessness and nerve pain. - You will be will continue your apixaban which will help with DVT prevention unless instructed otherwise. - If you have constipation you should take Colace or Miralax (both [id number]). It takes most people 3-4 days to have a bowel movement. Follow-up: 2 weeks If you have any acute concerns or questions, please do not hesitate to contact the office at [phone]. You may contact Dr. Willett with any questions after h ours through the hospital at [phone] or on his cell phone at [phone]. Referrals: Sandeep Willett MD [ [facility] STAFF PHYSICIAN] - Equipment/Supplies: Walker Activity:: Activity as Tolerated Shower/Bathe:: 72 hours Diet:: As Tolerated
--- NOTE | 2023-04-29 07:25 | W.ANESNERVE ---
Nerve Block Single Injection Procedure Date and Time Date Performed: 04/29/23 Procedure Start: 07:15 Location Where Procedure Performed Procedure Location: Day Surgery Unit Reason Performed: Postoperative Analgesia Requesting Provider: Sandeep Willett Timeout Performed Timeout Performed: Yes Monitoring Used ECG, Blood Pressure and SpO2 Sterility Sterility: Hand Hygiene, Surgical Cap, Surgical Mask, Sterile Gloves and Chlorhexidine Sedation Given During Procedure Sedation Given (Indicate Dose Given): Precedex IV Dose:: 8 mcg Patient Mental Status Patient Mental Status: Awake Nerve Block 1st Nerve Block: Laterality: Left Block Type: Adductor Canal Ultrasound Image Saved?: Yes Needle / Catheter Used: 100mm SonoPlex II Local Anesthetic Bolus (Indicate Dose Given): Injected in 3-5ml increments after negative blood aspiration and Bupivacaine 0.25% Dose:: 7 mL Additives (Indicate Dose Given): None Ultrasound: Sterile probe cover and gel used Nerve Stimulator: Supplement to Ultrasound use and No twitch or parasthesia noted < 0.5 mA Paresthesia: None Procedure Tolerated: No Complications Procedure Outcome: Successful Performed By: Gerardo Li 2nd Nerve Block: Laterality: Left Block Type: Other (anterior femoral cutaneous) Ultrasound Image Saved?: Yes Needle / Catheter Used: 100mm SonoPlex II Local Anesthetic Bolus (Indicate Dose Given): Bupivacaine 0.25% Dose:: 5 mL Additives (Indicate Dose Given): None Ultrasound: Sterile probe cover and gel used Nerve Stimulator: Supplement to Ultrasound use and No twitch or parasthesia noted < 0.5 mA Paresthesia: None Procedure Tolerated: No Complications Procedure Outcome: Successful Performed By: Gerardo Li
[2023-04-29] MEDS: ceFAZolin 3,000 MG in Normal Saline 100 ML 200 MG IV (07:28)
--- NOTE | 2023-04-29 08:38 | ROE_ITS ---
Date of service: 04/29/23 Time of Service: 07:35 Operative Note Operative Note DATE OF PROCEDURE: 04/29/23 PRE-OP DIAGNOSIS: Left Knee Osteoarthritis POST-OP DIAGNOSIS: same PROCEDURE: Left Total Knee Replacement SURGEON: Sandeep Willett SUPERVISOR SHIPPING ROOM: [place] ANESTHESIA TYPE: General LMA/ETT Refer to Anesthesia Record ESTIMATED BLOOD LOSS: 100 PATHOLOGY: none sent TOURNIQUET TIME: 0 COMPLICATIONS: None Patient was transported to: PACU Patient's condition: stable Implants: 1. Depuy Attune Cementless Cruciate Retaining Femoral Component, Size 6 2. Depuy Attune Cementless Fixed Bearing Tibial Component, Size 5 3. Depuy Attune 6x8 CR/FB Poly 4. Depuy Attune Patellar Component, Size 35 Indications: I have seen Sylvia in clinic for symptoms of knee arthritis, confirmed with radiographic findings. Sylvia has exhausted nonoperative methods and was having significant limitations in daily function and desired better function and less pain. I discussed the technical details of a knee replacement. I explained the risks of the procedure to include, but not limited to, bleeding, infection, pain, stiffness, fracture, damage to nerves and vessels, damage to muscles and tendons, loosening, need for repeat procedure, blood clot and cardiopulmonary demise. Despite these risks, she elected to proceed. Findings: There was significant signs of arthritis throughout the knee involving all 3 compartments with scalloped deformity of the patella. Procedure Description: Sylvia was greeted in the preoperative holding area where the correct side was i dentified and marked. The consent was reviewed with the patient and signed. The history and physical was updated. All questions were answered. Preoperative medications were administered: Acetaminophen 1000mg, Celebrex 400mg, and Gabapentin 300mg. An adductor canal block was then administered by the anesthesia team in the DSU. Sylvia was taken back to the operating room. A general anesthestic was then administered. The patient was placed into the supine position on the operating room table. A nonsterile tourniquet was placed high onto the leg but only used for cementing. Posts were placed for positioning during the procedure. All bony prominences were well padded. Prophylactic antibiotics in the form of Cefazolin were administered. 1g of Tranxemic Acid was given intravenously wi thin 30 minutes of incision. The left leg was then prepped with Chloraprep and draped in a standard fashion with impervious stockinette. A second prep with Chloraprep was performed prior to application of Iodine impregnated skin protection. A timeout to confirm correct identity, side and site, procedure, allergies, anesthesia, and medical concerns was performed. With the knee in some flexion, a midline incision was made overlying the knee. Full thickness skin flaps were raised once the extensor mechanism was encountered. These were raised medially and laterally. Any bleeding was controlled with electrocautery. Once the extensor mechanism was fully exposed, a medial parapatellar arthrotomy was performed in a flexed position. All bleeding from the arthrotomy and the geniculate arteries was coagulated. A medial subperiosteal peel was performed with electrocautery to the midcoronal plane. The fat pad was removed while keeping the patellar tendon protected. The anterior distal femur synovium was removed for later visualization. The ACL and PCL were resected and the anterior horn of the lateral meniscus was transected. The knee was then flexed with the patella everted. Large osteophytes from the tibia were removed. Large osteophytes from the femur were removed. There was a deep scallopped deformity of the patella. Using a step drill, and based on preoperative templating, the femoral canal was entered. This was done with a step drill without any difficulty. The intramedullary distal femoral cut guide was inserted, set to a 5 degree valgus cut and 9mm cut thickness. The distal femoral cut guide was then held in position and pinned. With the soft tissues protected, the distal cut was performed. This was passed over a few times to ensure a planar cut. I then turned attention to the tibia. The extramedullary guide was placed onto the leg. The distal aspect was slid medial to adjust for position of center of ankle and stay in line with shaft of the tibia. Approximately 3-5 degrees of posterior slope was kept in the proximal cutting guide. The center of the guide was aligned with the PCL. The stylus was used to assess cut thickness. The medial side, most involved side, was set for a 6mm cut. This was then held in position and pinned into place with 2 additional pins and a cross pin for stability. The medial and lateral collateral ligaments were protected and the cut was performed. With this completed, it was assessed and noted to be of appropriate dimensions. The guide was removed. A spacer block was inserted and the knee was brought into extension. The 7mm spacer block provided full extension, without hyperextension and with stability of both the medial and lateral collateral ligaments was assessed. The pins from the femur and the tibia were then removed. The distal femur was then sized. The anterior stylus was placed onto the lateral ridge of the anterior femur. This indicated a size 6 femur. The external rotation of the guide was adjusted to 3 degrees to match the epicondylar axis, perpendicular to [place]?s line. The 4-in-1 cutting guide was the placed. The posterior medial femur cut was evaluated and appeared of good thickness. The spacer block was inserted underneath the cutting guide and stability was confirmed in 90 degrees of flexion. An christina wing was used to confirm appropriate position of the anterior cut to avoid notching. This cutting guide was ensured to be flush on the cut surface and then pinned into place with headed pins. While protecting the soft tissues, quad tendon, and collateral ligaments, the anterior and posterior cuts were performed with a saw. The central two pins were removed and the posterior and anterior chamfers were cut next. The notch-cutting guide was placed. This was pinned to lateralize the femoral component as much as possible while keeping it flush on the cut surface. This was then pinned into position. A reciprocating saw was used to make the notch cut. A rasp smoothed the cut surfaces. The medial and lateral menisci were removed. A trial femoral component was then inserted, impacted down to the cut surfaces, and the lug holes were drilled. A provisional trial tibial component was placed and the knee was brought through range of motion. The polyethylene was trialed until there was good flexion and extension with excellent stability to the medial and lateral collaterals. The patella was tracking without thumbs. A size 8mm polyethylene component provided the best range of motion and stability with less than 2mm gapping with medial and lateral stress and full extension without significant hyperextension. The tibial cut surface was fully exposed. The tibia was then sized as a 5. The tibia had been previously marked during trialing to correspond to the center of the tibial component to help with rotation. The trial was aligned to this haile, approximately rotated to the medial 1/3rd of the tibial tubercle. The trial was pinned into place. The tibia was prepared with a reamer and a keel punch and lug holes. The knee was then brought into extension and the patella was prepared. Using the patellar clamp and cut guide, this was resected to a flat surface using the bottom of the scallopped area as the base, which left about 13mm. The size 35 patella fit the best. This was oriented and then clamped into position. The lugs were drilled. The trial components were removed. The final components were opened on the back table. The periosteal and capsular tissues, especially posteriorly, around the knee were then systematically injected with a periarticular cocktail consisting of 246mg of Ropivacaine, 0.5mg of Epinephrine, 0.08mg of Clonidine, and 30mg of Ketorolac, diluted to 100cc. On the back table, with the implants opened, the cement was mixed. One batch of high viscosity cement was prepared with vacuum assistance. After the cement was ready a small amount was placed on the cut surface of the patella and the patellar button was clamped into position and held. While the cement was hardening, the cementless knee components were placed. Starting with the tibial component, the tibia was subluxed anteriorly and the lug holes of the component were lined up. The tibia was then impacted with an impactor and mallet until the tibial component was in contact with the tibia. The final polyethylene component was inserted. Then, the femoral component was inserted. The lug holes were aligned and the component was impacted into position. The knee was irrigated with Irrisept Chlorhexadine solution. This was allowed to sit in the knee for 3 minutes and then it was irrigated out with saline. After the cement had finally cured, approximately 15min, the clamp was removed from the patella and the knee was taken through range of motion. The patella was tracking with a no-thumbs technique. The capsule was then reapproximated with a No. 1 Vicryl at multiple locations. The capsule was finally closed with a No. 2 Stratafix, barbed suture. The second dosing of 1g TXA was started. Deep tissues were then reapproximated with 0 Vicryl and 2-0 Vicryl. The skin was closed with a running 3-0 Monocryl in a subcuticular fashion. This was reinforced with skin glue. A Mepilex silver dressing was applied along with a [id number] ALEX wrap. A CryoCuff was applied. Sylvia was transferred to the hospital bed without difficulty an suffering no apparent complication. She has a good prognosis. Physical therapy will start today and without restrictions, weight-bearing as tolerated. Her home dose of Eliquis will be used for DVT prophylaxis.
[2023-04-29] MEDS: fentaNYL 100 MCG/2 ML VIAL IVP ×2 (09:30→09:41)
[2023-04-29] MEDS: oxyCODONE 5 MG TAB PO (10:27)
--- NOTE | 2023-04-29 10:39 | W.ANESPOSTOP ---
Postoperative Evaluation Date, Time and Location Date Performed: 04/29/23 Time Performed: 10:39 Patient Location: PACU Vital Signs Most Recent Imported Vital Signs: Most Recent Vital Signs Temp Pulse Resp BP Pulse Ox 36.7 C 90 16 124/67 95 04/29/23 10:33 04/29/23 10:33 04/29/23 10:33 04/29/23 10:33 04/29/23 10:33 Pain Score Most Recent Pain Score: Most Recent Pain Score Pain Level 4 04/29/23 10:33 Assessment Mental Status: Awake (Alert & Oriented to Patient Baseline) Airway and Respiratory Function: Patent airway with normal (patient baseline) respiratory exam (on a small amount of O2, otherwise doing well. encouraged to cough and deep breath, and us IS. ) Cardiovascular Function: Hemodynamically Stable Hydration Status: Adequately Hydrated Nausea & Vomiting: No Nausea or Vomiting Pain: Pain is tolerable per patient Peripheral Nerve Block: Regional nerve block not resolved at time of post operative discharge
--- NOTE | 2023-04-29 16:58 | IN_ITS ---
PT Notes Visit Reasons: L TKR Physical Therapy Day Surgery Initial Evaluation Date: 04/29/2023 Referring Doctor: KEVIN Green PT Orders: PT CONSULT: S/P Ortho Surgery Precautions: WBAT on the R LE with AD. Patient Profile/Admitting Diagnosis: Sylvia is a 77-year-old female with degenerative joint disease of the L knee and is status post L total knee arthroplasty on postoperative day 0. PMHX: All Active Problems Arthritis of left knee (Acute) History of total right knee replacement (Acute 03/08/23) Atrial fibrillation (Chronic) Type 2 diabetes mellitus (Acute) Hyperlipidemia (Acute) Acquired cystic kidney disease (Acute) Medical History Cardiac murmur Urinary incontinence Umbilical hernia Severe obesity Gout Benign neoplasm of adrenal gland Surgical History H/O bilateral breast reduction surgery H/O tubal ligation History of appendectomy H/O abdominoplasty H/O: hysterectomy Hx of cholecystectomy H/O umbilical hernia repair History of colonoscopy date of procedure 11/29/18 History of esophagogastroduodenoscopy Social History/Home Situation: Patient lives with in a private room with ramp to enter. Will have support of daughters and at home. Uses [employer] at baseline indoors and outdoors. Equipment Owned/DME: [facility] Subjective: Patient reports 2-3/10 pain in the surgical incision. Objective: General Observation: Seated on bedside chair. ALEX wraps to L LE. Cryocuff to L LE. TEDS to R leg. Mental Status: Alert and oriented x 4 Pain: As above ROM: Right Lower Extremity: Hip flexion WFL. Hip abduction WFL. Knee flexion 30 degrees to 100 degrees. Knee extension -30 degrees. Ankle dorsiflexion WFL. Ankle plantarflexion WFL. Left Lower Extremity: Hip flexion WFL. Hip abduction WFL. Knee flexion WFL. Ankle dorsiflexion WFL. Ankle plantarflexion WFL. Strength: Right Lower Extremity: Hip flexors 4/5. Hip abductors 4/5. Knee flexors 3-/5. Knee extensors 3-/5. Ankle dorsiflexors 4/5. Ankle plantarflexors 5/5. Left Lower Extremity:Hip flexors 5/5. Hip abductors 5/5. Knee flexors 5/5. Knee extensors 5/5. Ankle dorsiflexors 5/5. Ankle plantarflexors 5/5. Sensation: Intact as to pain and light pressure in B LE Bed Mobility/Transfers: Minimal verbal cues provided for hand placement, movement sequence, and AD management Sit to stand contact guard assist Stand to sit stand by assist Bed to chair stand by assist Gait: Facilitate safe and correct performance of level surface ambulation covering a distance of 150 feet with reciprocal steps with a heel toe gait pattern requiring only standby assist with minimal verbal cueing for AD management, gait pattern, and posture. Patient verbalized this is much better compared to pres urgical gait pattern. Balance: Static Sitting: Normal Dynamic Sitting: Normal Static Standing: Fair Dynamic Standing: Fair Special Tests: Mobility Limitations Standardized Measure [facility] AM-PAC 6 clicks Basic Mobility Inpatient Short Form: Raw Score: 20 CMS Score: 36% deficit Informed Consent/Education: Patient instructed in purpose of PT consult. Packet containing TKA exercise protocol has been given to patient. Education and training on initial set of exercises that can be done at home have been completed with patient. Trained patient with correct performance of exercises below to maximize motor control, joint flexibility, soft tissue extensibility of the R knee musculature: Access Code: [email or web address] URL: [email or web address] Date: 04/29/2023 Prepared by: Constance Wesley Exercises - Supine Quad Set - 1 x daily - 7 x weekly - 1 sets - 10 reps - 5 hold - Supine Heel Slide - 1 x daily - 7 x weekly - 1 sets - 10 reps - 5 hold - Supine Ankle Pumps - 1 x daily - 7 x weekly - 1 sets - 10 reps - 5 hold - Small Range Straight Leg Raise - 1 x daily - 7 x weekly - 1 sets - 10 reps - 5 hold - Seated March - 1 x daily - 7 x weekly - 1 sets - 10 reps - 5 hold Assessment: Patient requires the use of a front-wheeled walker for all mobility ADL performance to maximize independence and reduce fall risk. Patient presents with clinical signs and symptoms consistent with current/admitting diagnoses that have resulted to mobility limitations, gait instability, generalized weakness, and impairment of motor control as demonstrated by the following impairment level findings: 1. Decreased strength to left knee major muscle groups 2. Impaired standing balance 3. Limitation of joint range of motion in left knee Impairments are contributing to the following functional limitations: 1. Inability to safely ambulate without assistive device 2. Increase completion time for mobility ADL performance 3. Increased fall risk Patient is assessed as a 00539 complexity based on the following: History: 77-year-old female with impairment level findings, functional limitations, and past medical history as indicated above Examination: Demonstrable impairment in strength, balance, and mobility level with underlying impairments and functional limitations as documented above Presentation: [id number] moderate complexity Decision Making: Evolving Goals: N/A. PT evaluation and 1-2 treatment sessions only for functional mobility training using recommended AD and for HEP instruction. Plan of Care/Treatment Plan: N/A. PT evaluation and 1-2 treatment session only for functional mobility training using recommended AD and for HEP instruction. DISCHARGE RECOMMENDATIONS: Home when medically cleared by orthopedic surgeon. Recommend outpatient PT services in order to optimize functional mobility outcomes and facilitate return to independent community ambulation without an assistive device. TREATMENT CODE/TIME: 25206 x 20 minutes beginning at 12:05 PM. Thank you for the opportunity to participate in the care of this patient. Constance Wesley PT, DPT, CLT [facility] [place], [place]
== END 2023-04-29 13:30 | disposition home or self-care (01) ==
PROVIDERS: PCP Internal Medicine; Visit Provider Student in an Organized Health Care Education/Training Program
PROC: (CPT 27447; principal; 2023-04-29 07:30)
DX: M17.12 Unilateral primary osteoarthritis, left knee (principal); E11.9 Type 2 diabetes mellitus without complications; Z79.84 Long term (current) use of oral hypoglycemic drugs; Z79.01 Long term (current) use of anticoagulants; I48.91 Unspecified atrial fibrillation; E66.9 Obesity, unspecified; Z68.41 Body mass index [BMI] 40.0-44.9, adult
CPT/HCPCS: 27447; C1776; 76942; 97162; 97530; J0665; J0690; J1100; J2371; J2405; J2704; J3010; J3475

== ENCOUNTER 2023-05-12 13:32 | Outpatient (CLI) | payer MEDICARE, SELFPAY ==
--- NOTE | 2023-05-12 09:45 | DI.RAD_ITS ---
Exam(s) XR KNEE LT 1V XR STANDING ALIGNMENT EXAM: XR STANDING ALIGNMENT and XR knee LT 1 V CLINICAL HISTORY: 1ST POST OP S/P L TKA. TECHNIQUE: 2D digital imaging was performed. Five images were obtained. COMPARISON: CR XR STANDING ALIGNMENT from 03/24/2023 CR XR KNEE RT 1V from 03/24/2023 FINDINGS: BONES: The hips are well maintained. There are bilateral total knee replacements. The orthopedic nicholas rdware appears in good position. The ankles are well maintained.There is no significant leg length d iscrepancy. SOFT TISSUE: There calcifications again seen in the right knee which are posteriorly located. IMPRESSION: Stable bilateral total knee replacements. DATA REPOSITORY: RADIATION DOSE DELIVERED:
== END 2023-05-12 13:33 | disposition home or self-care (01) ==
LOC: DIORS 13:33
PROVIDERS: PCP Internal Medicine; Visit Provider Student in an Organized Health Care Education/Training Program
DX: Z96.652 Presence of left artificial knee joint (principal); Z47.1 Aftercare following joint replacement surgery; Z96.651 Presence of right artificial knee joint
CPT/HCPCS: 73560; 77073

== ENCOUNTER → 2023-06-09 09:42 | Outpatient (BNVA) | payer MEDICARE, SELFPAY | PROVIDERS: PCP Internal Medicine; Referring Provider Internal Medicine; Visit Provider Student in an Organized Health Care Education/Training Program | DX: Z47.1 Aftercare following joint replacement surgery (principal); Z96.652 Presence of left artificial knee joint ==

== ENCOUNTER → 2023-08-15 12:47 | Outpatient (BNVA) | payer MEDICARE, SELFPAY | PROVIDERS: PCP Internal Medicine; Referring Provider Internal Medicine | DX: Z47.1 Aftercare following joint replacement surgery (principal); Z96.651 Presence of right artificial knee joint; Z96.652 Presence of left artificial knee joint ==

== ENCOUNTER 2023-09-05 14:44 | Outpatient (CLI) | payer MEDICARE, SELFPAY ==
--- NOTE | 2023-09-05 11:30 | DI.RAD_ITS ---
Exam(s) XR KNEE RT 2V AP,LAT EXAM: XR KNEE RT 2V AP,LAT CLINICAL HISTORY: eval R knee pain s/p TKA. TECHNIQUE: 2D digital imaging was performed. COMPARISON: CR XR KNEE RT 1V from 03/24/2023 US POCUS EXAM from 04/29/2023 CR XR STANDING ALIGNMENT from 05/12/2023 CR XR KNEE LT 1V from 05/12/2023 FINDINGS: 3 views Position alignment of the components of the right knee prosthesis remain stable. No fracture or loos ening evident. On the lateral image there is again noted prominent calcified structure posteriorly in the midline. This may not be within Zhang cyst as it appears to be directly in the midline. Cannot exclude calcif ied lesion in the soft tissues. IMPRESSION: Stable satisfactory appearance of the right knee prosthesis. Prominent calcification versus multiple tiny calcifications posteriorly in the midline and therefore doubtful E within a Zhang cyst. If clinically indicated other modality such as MRI can be performed for determining what this finding is an its exact location. DATA REPOSITORY: RADIATION DOSE DELIVERED:
== END 2023-09-05 14:45 | disposition home or self-care (01) ==
LOC: DIORS 14:44
PROVIDERS: PCP Internal Medicine; Referring Provider Internal Medicine; Visit Provider Student in an Organized Health Care Education/Training Program
DX: Z96.651 Presence of right artificial knee joint (principal); Z47.1 Aftercare following joint replacement surgery; T84.84XA Pain due to internal orthopedic prosthetic devices, implants and grafts, initial encounter; S86.811A Strain of other muscle(s) and tendon(s) at lower leg level, right leg, initial encounter; X58.XXXA Exposure to other specified factors, initial encounter
CPT/HCPCS: 20610; 99215; 73560

== ENCOUNTER 2023-09-05 15:22 | Outpatient (REF) | payer MEDICARE, SELFPAY ==
[2023-09-05 13:45] LABS: Clarity Cloudy
[2023-09-05 13:46] LABS: Mononuclear Cells 91 %; Nucleated Cells 266 uL (0); Polynuclear Cells 9 %
== END 2023-09-05 15:23 | disposition home or self-care (01) ==
LOC: LBN 15:22
PROVIDERS: PCP Internal Medicine; Visit Provider Student in an Organized Health Care Education/Training Program
DX: T84.84XA Pain due to internal orthopedic prosthetic devices, implants and grafts, initial encounter (principal); Z96.651 Presence of right artificial knee joint
CPT/HCPCS: 87070; 87205; 89051

== ENCOUNTER 2023-09-14 07:03 | Inpatient (IN) | payer MEDICARE, SELFPAY ==
[2023-09-14] VITALS (18 sets, daily range): BP systolic 108–150; BP diastolic 56–93; PULSE 74–97; RESP 16–25; TEMP 36.1–37; O2SAT 93–97; BMI 48.6
[2023-09-14] MEDS: Celecoxib 200 MG CAP 400 MG PO (06:28)
[2023-09-14] MEDS: Acetaminophen 500 MG TAB 1000 MG PO ×3 (06:28→20:40)
[2023-09-14] MEDS: Lactated Ringers 1,000 ML 80 ML IV (06:43)
--- NOTE | 2023-09-14 07:06 | W.PM.DSUDISC ---
Date of service: 09/14/23 Time of Service: 07:07 Discharge Plan Disposition Patient Disposition: Home Condition: Good Discharge Details Reason For Visit: TKR Poly Exchange/Retinacular repair Attending Provider: Sandeep Willett Primary Care Provider: Rachael Mejia Home Meds and New Rx's Prescriptions: New acetaminophen 500 mg tablet 1,000 mg PO TID Qty: 90 3RF celecoxib 200 mg capsule 200 mg PO BID Qty: 60 0RF gabapentin 300 mg capsule 300 mg PO QHS Qty: 14 0RF pantoprazole 40 mg tablet,delayed release (DR/EC) 40 mg PO DAILY Qty: 30 0RF Continued Eliquis 5 mg tablet 5 mg PO BID Hold Instructions: Resume on 03/09/23. Resume taking normally tomorrow morning (03/09/23) Patient Comments: pt unsure allopurinol 100 mg tablet 100 mg PO DAILY metformin 500 mg tablet 500 mg PO DAILY metoprolol succinate 200 mg capsule,sprinkle,ER 24hr 200 mg PO DAILY valsartan 320 mg tablet 320 mg PO DAILY Ozempic 1 mg/dose (4 mg/3 mL) pen injector 1 mg subcut QWEEK Patient Comments: pt. unsure of last time torsemide 10 mg tablet 10 mg PO DAILY Patient Comments: TAKE ONE TABLET BY MOUTH EVERY DAY simvastatin 20 mg tablet 20 mg PO DAILY Patient Comments: TAKE ONE TABLET BY MOUTH AT BEDTIME Discontinued acetaminophen 500 mg tablet 1,000 mg PO TID Qty: 90 3RF Discharge Instructions Additional Instructions: Total Knee Discharge Instructions Activity: The most important activity is to walk and to work on gentle motion (both flexion and extension). You should try to take short walks a few times a day. It is important that when resting you work on keeping the knee straight. Avoid putting a pillow behind the knee as this will encourage flexion. Work on range of motion exercises as provided by Physical Therapy. - Start outpatient physical therapy within 2 weeks. - You should wear the LAKE hose on both legs for 2 weeks. You may remove these at night. You may also use any compression sock in place of the LAKE hose. - Utilize [employer] to review exercises, see videos on exercises and obtain basic information pertaining to your surgery and your recovery. Dressing: Remove the Kaden wrap by 2 days after your surgery and put on the LAKE stocking given to you from the hospital. Keep the surgical dressing (underneath the KADEN wrap) in place for at least one week. After the first week it may be removed and replaced with light gauze and tape or nothing. The wound and dressing may get wet after 3 days but avoid soaking the dressing or otherwise it will need to be changed. Many people prefer covering the dressing with cling wrap (saran wrap) to minimize it from getting soaked. If it gets wet, just pat dry. If it starts to peel off then it will need to be changed. Medications: - You should take Tylenol and anti-inflammatory Celebrex as your primary pain control medications. If the Celebrex is too expensive or not covered, please call the office for another alternative (Advil/Ibuprofen or Naproxen/Aleve) - You have been prescribed a stronger pain medication Oxycodone for breakthrough pain, take as needed as prescribed. - You have also been prescribed a stomach acid reduction agent Pantoprozole to help reduce stomach acid and reflux. - You have been prescribed Gabapentin to take at night for restlessness and nerve pain. - You will be will continue your apixaban which will help with DVT prevention unless instructed otherwise. - If you have constipation you should take Colace or Miralax (both [id number]). It takes most people 3-4 days to have a bowel movement. DS: Diagnosis Discharge Diagnosis (1) Traumatic medial retinacular tear of right knee: Status: Acute (2) Painful total knee replacement, right: Status: Acute
--- NOTE | 2023-09-14 07:07 | ANES.PREOP_ITS ---
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 release 24 hr valsartan 320 mg tablet 320 mg PO DAILY 10/06/22 apixaban 5 mg tablet (Eliquis) 5 mg PO BID 12/31/22 semaglutide 1 mg/dose (4 mg/3 mL) 1 mg subcut QWEEK 12/31/22 subcutaneous pen injector (Ozempic) simvastatin 20 mg tablet 20 mg PO DAILY 04/29/23 torsemide 10 mg tablet 10 mg PO DAILY 04/29/23 acetaminophen 500 mg tablet 1,000 mg (2 x 500 mg) PO TID #90 09/14/23 tabs celecoxib 200 mg capsule 200 mg PO BID #60 caps 09/14/23 gabapentin 300 mg capsule 300 mg PO QHS #14 caps 09/14/23 oxycodone 5 mg tablet 5 mg PO Q4H PRN pain #20 tabs 09/14/23 pantoprazole 40 mg tablet,delayed 40 mg PO DAILY #30 tabs 09/14/23 release Current Visit Medications: Current Medications Generic Name Dose Route Start Last Admin Trade Name Freq PRN Reason Stop Dose Admin Acetaminophen 1,000 mg 09/14/23 06:00 09/14/23 06:28 Acetaminophen 500 Mg Tab PO 09/14/23 23:59 1,000 mg PREOP ROBBI Administration Acetaminophen 1,000 mg 09/14/23 07:03 Acetaminophen 500 Mg Tab PO 10/14/23 08:29 TID PRN Analgesia Celecoxib 400 mg 09/14/23 06:00 09/14/23 06:28 Celecoxib 200 Mg Cap PO 09/14/23 23:59 400 mg PREOP ROBBI Administration Docusate Sodium 100 mg 09/14/23 07:03 Docusate Sodium 100 Mg Cap PO 10/14/23 07:02 BID PRN PRN Constipation Ringer's Solution 1,000 mls @ 80 mls/hr 09/14/23 06:00 09/14/23 06:43 IV 09/14/23 23:59 80 mls/hr INFUSION ROBBI Administration Cefazolin Sodium/Dextrose 2 gm in 50 mls @ 100 mls/hr 09/14/23 06:00 Ancef Duplex IVPB 09/14/23 23:59 PREOP ROBBI Tranexamic Acid/Sodium Chloride 1,000 mg in 100 mls @ 600 mls/hr 09/14/23 06:0 0 IVPB 09/14/23 23:59 PREOP ROBBI IV Miscellaneous Supplies 1 each 09/14/23 06:00 Iv Access IV 09/14/23 23:59 DIRECTED ROBBI Ondansetron HCl 4 mg 09/14/23 07:03 Ondansetron 4 Mg/2 Ml Vial IVP 10/14/23 07:02 Q6H PRN PRN Nausea Oxycodone HCl 0 mg 09/14/23 07:03 Oxycodone 5 Mg Tab PO 10/14/23 07:02 Q3H PRN PRN Pain Polyethylene Glycol 17 gm 09/14/23 07:03 Polyethylene Glycol 3350 17 Gm Packet PO 10/14/23 07:02 BID PRN PRN Constipation Sodium Chloride 0 ml 09/14/23 06:00 Normal Saline Flush 10 Ml Syr IV 09/14/23 23:59 PRN PRN Sodium Chloride 0 ml 09/14/23 06:00 Normal Saline 10 Ml Vial IJ 09/14/23 23:59 DIRECTED PRN Sterile Water 0 ml 09/14/23 06:00 Water,Injection,Sterile 10 Ml Vial IJ 09/14/23 23:59 DIRECTED PRN PFSH Active Problems Active Problems: Problem Status Onset Code 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 stated she said it was nothing to worry about, just gave me blood thinners (Pt. has Afib) Urinary incontinence Umbilical hernia Severe obesity Gout Benign neoplasm of adrenal gland Surgical History Surgical History H/O bilateral breast reduction surgery H/O tubal ligation History of appendectomy H/O abdominoplasty H/O: hysterectomy Hx of cholecystectomy H/O umbilical hernia repair History of colonoscopy date of procedure 11/29/18 History of esophagogastroduodenoscopy Tobacco Smoking/Tobacco Use Status: Former Tobacco Use Alcohol Alcohol Intake: never Substance Use Substance use: Never Substance use type: does not use Vital Signs and Lab Results Vital Signs Most Recent Vital Signs in EMR: Most Recent Vital Signs Temp Pulse Resp BP Pulse Ox 36.6 C 94 H 18 141/66 H 96 09/14/23 06:11 09/14/23 06:11 09/14/23 06:11 09/14/23 06:11 09/14/23 06:11 Point of Care Results Point of Care Results: Finger Stick Blood Glucose 245 09/14/23 06:26 Lab Results Blood Type / Crossmatch: No Data to Display Complete Blood Count: No Data to Display Complete Metabolic Panel: No Data to Display Liver Function Panel: No Data to Display Coagulation Panel: No Data to Display Cardiac Panel: No Data to Display Arterial Blood Gas: No Data to Display Venous Blood Gas: No Data to Display Pancreas Panel: No Data to Display Thyroid Panel: No Data to Display Infectious Disease: No Data to Display Blood Cultures: No Data to Display Toxicology Panel: No Data to Display Anesthesia Assessment and Plan Anesthesia History Personal History: No History of Anesthesia Complications Family History: No Family History of Anesthesia Complications Exercise Tolerance Exercise Tolerance: Metabolic Equivalents<4 Pertinent Negatives Pertinent Negatives: No Major Cardiovascular Symptoms or Complaints and No Major Pulmonary Symptoms or Complaints Cardiac & Pulmonary Exam Cardiac Exam: Normal S1/S2 Heart Sounds Pulmonary Exam: Clear Bilateral Breath Sounds Implantable Cardiac Device Does patient have a Pacemaker or an ICD?: No Airway Exam Known Difficult Airway: No Mallampati Class: 2 Mouth Opening: Normal (> 3cm) Thyromental Distance: Greater than 3 cm Neck Range of Motion: Full ROM Neck Circumference: Thick Teeth Condition: Removable Dentures/Plates Upper ASA Classification ASA Score: ASA 3 Emergency Case?: No NPO Status NPO Status: NPO Clears >2 hours, Solids >8 hours Anesthesia Plan Resuscitation Status: Full Code Anesthesia Technique: General Anesthesia Airway Planned: Endotracheal Tube Pain Management: Surgeon and patient request nerve block Monitors Used: Standard Monitors
--- NOTE | 2023-09-14 07:34 | ROE_ITS ---
Date of service: 09/14/23 Time of Service: 07:34 Operative Note Operative Note DATE OF PROCEDURE: 09/14/23 PRE-OP DIAGNOSIS: Right Prosthetic Knee Laxity and Arthrotomy Rupture POST-OP DIAGNOSIS: same PROCEDURE: Arthrotomy and quadriceps repair, right knee Irrigation, debridement, and synovectomy of right knee with polyethylene exchange SURGEON: Sandeep Willett [employer] MANAGER: [place] ANESTHESIA TYPE: General LMA/ETT Refer to Anesthesia Record ESTIMATED BLOOD LOSS: 100 TOURNIQUET TIME: 0 COMPLICATIONS: None Patient was transported to: PACU Indications: Sylvia is a 77-year-old female who is status post bilateral knee replacements. The right side was done nearly 6 months ago. While she initially did quite well from the right side she reported increasing instability of the right knee with episodes of giving way and eventual falling. Upon repeat evaluation she was seen to have a disrupted quadriceps mechanism and arthrotomy with some i nstability of the right knee. Given these findings I recommended proceeding with repair of the arthrotomy and quadriceps split rupture along with polyethylene exchange. Findings: There was gross separation of the quadriceps split all the way to the level of the inferior patella. The tissues were debrided and the quadriceps tendon and other surrounding retinacular tissues were identified. The polyethylene was exchanged for a 16 mm which provided significant improvement with medial lateral stability. A pants over vest, double breasted, repair of the quadriceps and retinacular tissues was performed. Procedure Description: Sylvia was greeted in the preoperative holding area where the correct side was identified and marked. The consent was reviewed with the patient and signed. The history and physical was updated. All questions were answered. Preoperative mediacations were administered: Acetaminophen 1000mg, Celebrex 400mg, and Gabapentin 300mg. An adductor canal block was then administered by the anesthesia team in the DSU. She was taken back to the operating room. A general anesthestic was administered. The patient was placed into the supine position on the operating room table. Posts were placed for positioning during the procedure. All bony prominences were well padded. Prophylactic antibiotics in the form of Cefazolin were administered. The left leg was then prepped with Chloraprep and draped in a standard fashion with impervious stockinette. A second prep with Chloraprep was performed prior to application of Iodine impregnated skin protection. A timeout to confirm correct identity, side and site, procedure, allergies, anesthesia, and medical concerns was performed. With the knee in some flexion, a midline incision was made overlying the knee utilizing the previous incision. Full thickness skin flaps were raised once the extensor mechanism was encountered. These were raised medially and laterally. There is an obvious defect of the quadriceps repair and the arthrotomy although there was a veil of tissue bridging the defect gap. All bleeding was controlled with electrocautery. Medial and lateral skin flaps were raised to fully evaluate the extensor mechanism. The defect was quite obvious. It ended about the inferior portion of patella with maybe some slight diastases at that level but beyond the inferior portion of the patella there was no defect. Using a curette and rongeur a debrided down any of the early scar formation to show tendinous material. Once the tendon was encountered it was able to be easily mobilized back over without significant tension and at 90 degrees of flexion. I also performed a synovectomy around the anteromedial and anterolateral aspects of the knee for better mobilization of the tissues and visualization. The knee was then brought up into flexion where the polyethylene was removed. Trial polyethylene was placed. 16 mm polyethylene provided excellent stability to varus and valgus stress in extension, 30 degrees and 90 degrees of flexion. The knee was thoroughly irrigated with Surgiphor Betadine solution. Once again, debridement was performed of any synovitis around the arthrotomy site and quadriceps repair site. The periosteal and capsular tissues were then systematically injected with a periarticular cocktail consisting of 100 cc of ropivacaine, epinephrine, clonidine, ketorolac. With the knee at 90 degrees of flexion, then performed closure. This was done with a pants over vest type repair. The thicker, healthier tendinous material adjacent to the vastus medialis muscle was identified and was sewed to the medial border of the quadriceps and retinaculum utilizing a #2 FiberWire with a pants over vest type technique. The tissue easily mobilized over this area. The sutures were then placed but not tied. This was done sequentially up the length of the quadriceps and around the patella. The amount of overlap was decreased as I reached the ends both proximally distally which were still intact. Once these were fully placed and tested show approximate reapproximation of the tissues, these were tied. This had excellent reapproximation of the tissues now with an overlapping core of soft tissue. Further additional sutures were placed distally and proximally. The overlap t issue was then secured down to the patellar ligament, quadriceps tendon, and patella periosteum utilizing suture tape. The knee was tested up to 100 degrees of flexion and was stable. There is no defects noted. The wound was once again irrigated both with Betadine and saline. The wound was then closed with a series of 0 and #2-0 Vicryl. The skin was closed with a running 3-0 Monocryl in a subcuticular fashion. This was reinforced Exofin skin glue dressing device. A Mepilex silver dressing was applied along with a [id number] ALEX wrap. A CryoCuff was applied. A knee immobilizer was also placed to keep the leg in full extension for at least 2 weeks. Sylvia was transferred to the hospital stretcher without difficulty an suffering no apparent complication. Sylvia has a gaurded prognosis. She will return to her home dose of Eliquis for DVT prophylaxis.
[2023-09-14] MEDS: ceFAZolin 2 GM/50 ML BAG IVPB (07:38)
[2023-09-14] MEDS: TRANEXAMIC ACID/SOD. CHL. 1,000 MG/100 ML BAG 600 MG IVPB (07:46)
--- NOTE | 2023-09-14 08:04 | W.ANESNERVE ---
Nerve Block Single Injection Procedure Date and Time Date Performed: 09/14/23 Procedure Start: 07:21 Location Where Procedure Performed Procedure Location: Day Surgery Unit Reason Performed: Postoperative Analgesia Requesting Provider: Sandeep Willett Timeout Performed Timeout Performed: Yes Monitoring Used ECG, Blood Pressure, SpO2 and See EMR for corresponding vital signs Sterility Sterility: Hand Hygiene, Surgical Cap, Surgical Mask, Sterile Gloves, Sterile Drape/Sheet and Chlorhexidine Sedation Given During Procedure Sedation Given (Indicate Dose Given): Versed IV Dose:: 2 mg Patient Mental Status Patient Mental Status: Awake Nerve Block 1st Nerve Block: Laterality: Right Block Type: Adductor Canal Ultrasound Image Saved?: Yes Needle / Catheter Used: 100mm SonoPlex II Local Anesthetic Bolus (Indicate Dose Given): Lidocaine used for local infiltration of skin, Injected in 3-5ml increments after negative blood aspiration and Bupivacaine 0.25% Dose:: 15 ml Additives (Indicate Dose Given): None Ultrasound: Sterile probe cover and gel used Nerve Stimulator: Supplement to Ultrasound use and No twitch or parasthesia noted < 0.5 mA Paresthesia: None Procedure Tolerated: No Complications and Patient tolerated well Procedure Outcome: Successful Performed By: Raine Tripp
--- NOTE | 2023-09-14 10:14 | W.ANESPOSTOP ---
Postoperative Evaluation Date, Time and Location Date Performed: 09/14/23 Time Performed: 10:14 Patient Location: PACU Vital Signs Most Recent Imported Vital Signs: Most Recent Vital Signs Temp Pulse Resp BP Pulse Ox 36.2 C L 76 16 150/82 H 95 09/14/23 09:42 09/14/23 09:57 09/14/23 09:57 09/14/23 09:57 09/14/23 09:57 Pain Score Most Recent Pain Score: Most Recent Pain Score Pain Level 2 09/14/23 09:57 Assessment Mental Status: Awake (Alert & Oriented to Patient Baseline) Airway and Respiratory Function: Patent airway with normal (patient baseline) respiratory exam Cardiovascular Function: Hemodynamically Stable Hydration Status: Adequately Hydrated Nausea & Vomiting: No Nausea or Vomiting Pain: Pain is tolerable per patient Peripheral Nerve Block: Regional nerve block not resolved at time of post operative discharge
[2023-09-14] MEDS: Allopurinol 100 MG TAB PO (11:21)
[2023-09-14] MEDS: Celecoxib 200 MG CAP PO ×2 (11:22→20:39)
[2023-09-14] MEDS: Pantoprazole 40 MG TABCR PO (11:22)
[2023-09-14] MEDS: Torsemide 10 MG TAB PO (12:00)
[2023-09-14] MEDS: Insulin Aspart 300 UNITS/3 ML PEN SC ×2 (12:00→17:14)
--- NOTE | 2023-09-14 14:53 | PT.INIE ---
PT Notes Visit Reasons: Painful R TKR Physical Therapy Day Surgery Initial Evaluation Date: 09/14/2023 Referring Doctor: KEVIN Green PT Orders: PT CONSULT: S/P Ortho Surgery Precautions: WBAT on the R LE with AD. Per Dr. Willett: Knee immobilizer on at all times to keep knee in extension for the next two weeks. Patient Profile/Admitting Diagnosis: Sylvia is a 77-year-old female with painful R TKA from her right prosthetic knee laxity and arthrotomy rupture status post R arthrotomy and quads repair as well as irrigation, debridement and synovectomy with polyethylene exchange on postoperative day 0. 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 stated she said it was nothing to worry about, just gave me blood thinners (Pt. has Afib) Urinary incontinence Umbilical hernia Severe obesity Gout Benign neoplasm of adrenal gland Surgical History H/O bilateral breast reduction surgery H/O tubal ligation History of appendectomy H/O abdominoplasty H/O: hysterectomy Hx of cholecystectomy H/O umbilical hernia repair History of colonoscopy date of procedure 11/29/18 History of esophagogastroduodenoscopy Social History/Home Situation: Patient lives with in a private room with ramp to enter. Will have support of daughters at home. Uses 4WW at baseline indoors and outdoors. Equipment Owned/DME: 4WW Subjective: 4/10 pain in the R knee and achiness in the R ankle. Having difficulty standing up from chair due to inability to bend the R knee. Okay once she is standing up. Objective: General Observation: Resting in bed. ALEX wraps to R LE. Cryocuff under R knee immobilizer. TEDS to L leg. Mental Status: Alert and oriented x 4 Pain: As above ROM: Right Lower Extremity: Hip flexion WFL. Hip abduction WFL. Knee flexion DEFERRED. Knee ordered to be in extension using knee imoobilizer at all times for the next 2 weeks until seen by orthopedic surgeon. Ankle dorsiflexion WFL. Ankle plantarflexion WFL. Left Lower Extremity: Hip flexion WFL. Hip abduction WFL. Knee flexion WFL. Ankle dorsiflexion WFL. Ankle plantarflexion WFL. Strength: Right Lower Extremity: Hip flexors 4/5. Hip abductors 4/5. Knee flexors NT. Knee extensors NT. Ankle dorsiflexors 4/5. Ankle plantarflexors 5/5. Left Lower Extremity:Hip flexors 5/5. Hip abductors 5/5. Knee flexors 5/5. Knee extensors 5/5. Ankle dorsiflexors 5/5. Ankle plantarflexors 5/5. Sensation: Intact as to pain and light pressure in B LE Bed Mobility/Transfers: Minimal verbal cues provided for hand placement, movement sequence, and AD management Sit to stand contact guard assist Stand to sit stand by assist Bed to chair stand by assist Gait: RE-ADJUSTED KNEE IMMOBILIZER AFTER TAKING OUT CRYOCUFF BEFORE THE WALK. Facilitated safe and correct performance of level surface ambulation covering a distance of 40 feet + 40 feet feet with step-to gait pattern requiring minimal assist with minimal verbal cueing for AD management, gait pattern, and Balance: Static Sitting: Normal Dynamic Sitting: Normal Static Standing: Fair Dynamic Standing: Fair Special Tests: Mobility Limitations Standardized Measure [facility]-PAC 6 clicks Basic Mobility Inpatient Short Form: Raw Score: 20 CMS Score: 36% deficit Informed Consent/Education: Patient instructed in purpose of PT consult. Packet containing TKA exercise protocol has been given to patient. Education and training on initial set of exercises that can be done at home have been completed with patient. Trained patient with correct performance of exercises below to maximize motor control, joint flexibility, soft tissue extensibility of the R knee musculature: Access Code: [email or web address] URL: [email or web address] Date: 09/14/2023 Prepared by: Constance Wseley Exercises - Supine Quad Set - 1 x daily - 7 x weekly - 1 sets - 10 reps - 5 hold - Supine Ankle Pumps - 1 x daily - 7 x weekly - 1 sets - 10 reps - 5 hold - Small Range Straight Leg Raise - 1 x daily - 7 x weekly - 1 sets - 10 reps - 5 hold Assessment: Limited ability to stand up due to movement restriction on R knee. Will continue to require cueing for safe technique for sit<>stand movement transition. Patient requires the use of FWW for all mobility ADL performance to maximize independence and reduce fall risk. Patient requires the use of a front-wheeled walker for all mobility ADL performance to maximize independence and reduce fall risk. Patient presents with clinical signs and symptoms consistent with current/admitting diagnoses that have resulted to mobility limitations, gait instability, generalized weakness, and impairment of motor control as demonstrated by the following impairment level findings: 1. Decreased strength to R knee major muscle groups 2. Impaired standing balance 3. Limitation of joint range of motion in R knee Impairments are contributing to the following functional limitations: 1. Inability to safely ambulate without assistive device 2. Increase completion time for mobility ADL performance 3. Increased fall risk Patient is assessed as a 70727 complexity based on the following: History: 77-year-old female with impairment level findings, functional limitations, and past medical history as indicated above Examination: Demonstrable impairment in strength, balance, and mobility level with underlying impairments and functional limitations as documented above Presentation: 42171 moderate complexity Decision Making: Evolving Goals: Goals X1 week 1. Supine-Sit independent 2. Sit-Supine independent 3. Sit-Stand independent 4. Stand-Sit independent 5. Bed-Chair independent 6. Chair-Bed independent 7. Independent gait on level surface with use of least restrictive device for at least 150 feet without report of pain nor dyspnea 8. Independent with home exercise program 9. Good static and dynamic standing balance/tolerance Plan of Care/Treatment Plan: Patient will highly benefit from skilled physical therapy services including functional mobility training, bed mobility/transfer training, gait and balance training, therapeutic exercises, therapeutic activity, caregiver/staff/family education and training 1x/day, 7 days/week x 1 week. Plan of care has been reviewed with the LARGE SHEETFED PRESS OPERATOR providing the service under Physical Therapy direction. Initiate Physical Therapy intervention for strengthening, bed mobility, transfers, gait, stairs, balance training, use of assistive device. DISCHARGE RECOMMENDATIONS: Home when medically cleared by orthopedic surgeon. Recommend outpatient PT services in order to optimize functional mobility outcomes and facilitate return to independent community ambulation without an assistive device. TREATMENT CODE/TIME: 59779 x 20 minutes for 1 unit, 93020 x 39 minutes for 3 units (14:53-15:52). Thank you for the opportunity to participate in the care of this patient. Constance Wesley PT, DPT, CLT [facility] [place], [place]
[2023-09-14] MEDS: Normal Saline Flush 10 ML SYR IV (15:49)
[2023-09-14] MEDS: ceFAZolin 1 GM/50 ML BAG IVPB ×2 (15:50→23:35)
[2023-09-14] MEDS: oxyCODONE 5 MG TAB PO ×2 (18:32→23:35)
[2023-09-14] MEDS: metFORMIN 500 MG TAB PO (20:39)
[2023-09-14] MEDS: Gabapentin 300 MG CAP PO (20:39)
[2023-09-14] MEDS: Simvastatin 20 MG TAB PO (20:39)
[2023-09-14] MEDS: Apixaban 5 MG TAB PO (20:39)
[2023-09-15 03:11] VITALS: BP 105/63; PULSE 81; RESP 18; TEMP 36.5; O2SAT 95
[2023-09-15] MEDS: ceFAZolin 1 GM/50 ML BAG IVPB (07:40)
--- NOTE | 2023-09-15 07:40 | PTTR_ITS ---
PT Notes Visit Reasons: Painful R TKR Inpatient Physical Therapy Treatment Note [facility] Date: 09/15/23 PRECAUTIONS: WBAT RLE with knee immobilizer for protection of quad tendon repair SUBJECTIVE: Sylvia states that she is feeling good. She has no pain to speak of. Plans to sleep in her recliner initially upon returning home, where she typically spends most of her nights. She is looking into getting a lift chair, as well. She plans to shower at her daughter's home, where she has a walk in shower with tub bench. OBJECTIVE: ? PAIN: 0/10 Therapeutic Activities ([id number]): Direct one-on-one instruction in dynamic activities to improve functional performance. ? BED MOBILITY/TRANSFERS? Supine-sit: mod A x 1? ? (will not be performing at home) ? Sit-stand: mod A x 1 initially, with cues for RLE placement in extension, pushing up with LLE. Requires bed to be elevated, at which point she can complete easily with CGA and without need for further cues. Sit-stand from elevated bed 3x with cues for technique (RLE advanced with knee extended, hands to bed for push off). Performed 2x from recliner chair, with UE support to arm rests and CGA only. ? Stand-sit: SBA with good maintenance of precautions ? Gait: ambulates 40'x1 with CGA, FWW and right knee immobilizer. ? Treatment: Transfer training as above. Reviewed sit-stand techniques and encourage use of higher chairs, lift chair, etc. Recommend elevating shower bench before use. Has a leg helper at home for bed mobility. Knee immobilizer for all weight bearing activity. Encourage frequent, short walks. ASSESSMENT:? Good maintenance of post-op precautions, with consistent avoidance of knee flexion without need for cues. PLAN: Appropriate for discharge home with family support when medically ready. Has FWW at home and will not need one issued. TREATMENT CODE/TIME: [id number] ([id number]) Narcisa De La Rosa, PT, DPT [facility]
[2023-09-15] MEDS: Valsartan 80 MG TAB 320 MG PO (07:41)
[2023-09-15] MEDS: Celecoxib 200 MG CAP PO (07:42)
[2023-09-15] MEDS: Allopurinol 100 MG TAB PO (07:42)
[2023-09-15] MEDS: Pantoprazole 40 MG TABCR PO (07:42)
[2023-09-15] MEDS: Apixaban 5 MG TAB PO (07:43)
[2023-09-15] MEDS: Torsemide 10 MG TAB PO (07:43)
[2023-09-15] MEDS: metFORMIN 500 MG TAB PO (07:43)
[2023-09-15] MEDS: Normal Saline Flush 10 ML SYR (07:44)
[2023-09-15 07:50] VITALS: BP 108/67; PULSE 90; RESP 19; TEMP 36.3; O2SAT 94
[2023-09-15] MEDS: Metoprolol CR 100 MG TABCR 200 MG PO (07:51)
--- NOTE | 2023-09-15 07:54 | W.PM.DS.N ---
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 The surgery was tolerated well without any notable medical, surgical, or anesthetic complications. Mobilization began postoperatively. She was voiding spontaneously. Vitals were stable. Physical therapy worked with the patient and was cleared for discharge home. No acute medical issues. Pain was controlled on oral regimen. Home Meds and New Rx's Prescriptions: New acetaminophen 500 mg tablet 1,000 mg PO TID Qty: 90 3RF celecoxib 200 mg capsule 200 mg PO BID Qty: 60 0RF gabapentin 300 mg capsule 300 mg PO QHS Qty: 14 0RF pantoprazole 40 mg tablet,delayed release (DR/EC) 40 mg PO DAILY Qty: 30 0RF oxycodone 5 mg tablet 5 mg PO Q6H PRN (Reason: pain) Qty: 10 0RF cefadroxil 500 mg capsule 500 mg PO BID Qty: 14 0RF Continued Eliquis 5 mg tablet 5 mg PO BID Hold Instructions: Resume on 03/09/23. Resume taking normally tomorrow morning (03/09/23) Patient Comments: pt unsure allopurinol 100 mg tablet 100 mg PO DAILY metformin 500 mg tablet 500 mg PO DAILY metoprolol succinate 200 mg capsule,sprinkle,ER 24hr 200 mg PO DAILY valsartan 320 mg tablet 320 mg PO DAILY Ozempic 1 mg/dose (4 mg/3 mL) pen injector 1 mg subcut QWEEK Patient Comments: pt. unsure of last time torsemide 10 mg tablet 10 mg PO DAILY Patient Comments: TAKE ONE TABLET BY MOUTH EVERY DAY simvastatin 20 mg tablet 20 mg PO DAILY Patient Comments: TAKE ONE TABLET BY MOUTH AT BEDTIME Discontinued acetaminophen 500 mg tablet 1,000 mg PO TID Qty: 90 3RF Discharge Instructions Additional Instructions: Total Knee Discharge Instructions Activity: You have no formal restrictions on ambulation. However, you should only weight-bear with the knee immobilizer. It is imperative that when you are getting up or getting into a chair or couch or in a seated position that you keep the leg straight which is why utilizing the knee immobilizer is most important. When you are not ambulating he may remove the knee immobilizer at least loosened up. However, do not try to actively flex against any force or with any difficulty or pain. Dressing: Remove the Kaden wrap by 2 days after your surgery and put on the LAKE stocking given to you from the hospital. Keep the surgical dressing (underneath the KADEN wrap) in place for at least one week. After the first week it may be removed and replaced with light gauze and tape or nothing. The wound and dressing may get wet after 3 days but avoid soaking the dressing or otherwise it will need to be changed. Many people prefer covering the dressing with cling wrap (saran wrap) to minimize it from getting soaked. If it gets wet, just pat dry. If it starts to peel off then it will need to be changed. Medications: - You should take Tylenol and anti-inflammatory Celebrex as your primary pain control medications. If the Celebrex is too expensive or not covered, please call the office for another alternative (Advil/Ibuprofen or Naproxen/Aleve) - You have been prescribed a stronger pain medication Oxycodone for breakthrough pain, take as needed as prescribed. - You have also been prescribed a stomach acid reduction agent Pantoprozole to help reduce stomach acid and reflux. - You have been prescribed Gabapentin to take at night for restlessness and nerve pain. -You also been prescribed an antibiotic to continue for 1 week for prophylaxis. It is imperative that you follow your blood sugars to minimize peaks of hyperglycemia, levels over 200, to prevent against infection. - You will be will continue your apixaban which will help with DVT prevention unless instructed otherwise. - If you have constipation you should take Colace or Miralax (both [id number]). It takes most people 3-4 days to have a bowel movement. Activity:: Activity as Tolerated Equipment/Supplies:: No Equipment Needed Diet:: Carb Counting Discharge Orders Discharge Orders: Discharge Order (Routine); Ordered 09/15/23 Ordered By: Sandeep Willett DS: Summary Time Spent with Patient providing and/or coordinating discharge services: Less than 30 minutes Status at Discharge Functional status at discharge: uses cane/walker Overall status at discharge: patient is progressing back to baseline Mental Status: mental status grossly normal Speech and Movement: speech and movement normal Mood: congruent mood Affect: normal affect Quality:SDOH Health Related Social Needs: No Data to Display Exam Narrative Exam Narrative: Sitting up in the chair. No acute distress. Alert and oriented x 3. Evaluation of the right knee shows clean dry and intact dressings. Active ankle dorsiflexion, plantarflexion, great toe extension. Sensation intact light touch over the deep and superficial peroneal nerve and tibial nerve. Psych Mental Status: mental status grossly normal Speech and Movement: speech and movement normal Mood: congruent mood Affect: normal affect DS: Data Vitals/I&O Vitals and I&O: Vital Signs Temperature 36.5 C 09/15/23 03:11 Temperature Source Tympanic 09/15/23 03:11 Pulse 81 09/15/23 03:11 Pulse Rhythm Irregular 09/14/23 23:35 Respiratory Rate 18 09/15/23 03:11 Respiratory Effort Normal, Non-Labored 09/14/23 23:35 Respiratory Depth Shallow 09/14/23 23:35 Respiratory Pattern Normal 09/14/23 23:35 Blood Pressure 105/63 09/15/23 03:11 Blood Pressure Mean 80 09/14/23 07:14 Blood Pressure Position Supine 09/14/23 07:14 Pulse Oximetry 95 09/15/23 03:11 Respiratory End-tidal CO2 38 09/14/23 10:12 Oxygen Delivery Method Room Air 09/15/23 03:11 Oxygen Flow Rate 0 09/15/23 03:11 Pain Level 0 09/15/23 03:11 Comment 0727 Block Complete. Pt tolerated well. 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 stated she said it was nothing to worry about, just gave me blood thinners (Pt. has Afib) Urinary incontinence Umbilical hernia Severe obesity Gout Benign neoplasm of adrenal gland Surgical History H/O bilateral breast reduction surgery H/O tubal ligation History of appendectomy H/O abdominoplasty H/O: hysterectomy Hx of cholecystectomy H/O umbilical hernia repair History of colonoscopy date of procedure 11/29/18 History of esophagogastroduodenoscopy Social History Smoking/Tobacco Use Status: Former Tobacco Use Quit Date: 04/18/07 Smoking risk assessment performed?: Yes Alcohol Intake: never Drug use: Never Substance use type: does not use Housing: house Do you feel safe at home: Yes Do you feel safe in your relationship?: Yes Time Spent with Patient Time Spent with Patient: <45 minutes Time was spent: preparing to see the patient(eg.review tests), referring, communicating with other health critical care educator, indepentently interpreting results and counseling the patient
[2023-09-15] MEDS: Insulin Aspart 300 UNITS/3 ML PEN SC (08:10)
--- NOTE | 2023-09-15 08:55 | PDOC.CMIN ---
Date of service: 09/15/23 Time of Service: 08:55 Care Management Initial Assmt Functional Status/Living Situation Town of Residence: [facility] Significant Other/Family: Local Natural Supports: Daughters Bibi and Deloris Instrumental Activities of Daily Living (ADLs): Independent Medications Medication Management: No Issues/Barriers identified Advance Directives Advance Directives: Do you have an Advance Directive: N 12/31/22 09:31 AD On File at [facility]: N 03/24/23 10:00 Date Asked 09/05/23 09/05/23 12:51 AD Date Reviewed COLST On File at [facility] COLST Date Scanned Code Status Resuscitation Status Full Code Insurance Coverage/Financial Issues Insurance: AARP [facility] MEd[employer] ACO Member: No Care Team Visit Care Team Role Provider Type Rachael Mejia Primary Care Provider NON-[facility] STAFF PHYSICIAN [facility]Patient [facility] Other Providers OTHER Sandeep Willett MD Admit Provider [facility] STAFF PHYSICIAN Attending Provider [facility] All Active Problems 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 stated she said it was nothing to worry about, just gave me blood thinners (Pt. has Afib) Urinary incontinence Umbilical hernia Severe obesity Gout Benign neoplasm of adrenal gland Surgical History H/O bilateral breast reduction surgery H/O tubal ligation History of appendectomy H/O abdominoplasty H/O: hysterectomy Hx of cholecystectomy H/O umbilical hernia repair History of colonoscopy date of procedure 11/29/18 History of esophagogastroduodenoscopy Social History Smoking/Tobacco Use Status: Former Tobacco Use Quit Date: 04/18/07 Smoking risk assessment performed?: Yes Alcohol Intake: never Drug use: Never Substance use type: does not use Housing: house Do you feel safe at home: Yes Do you feel safe in your relationship?: Yes SDOH(Care Management) Screening Will the Patient Participate in the Screening?: Declined to provide
--- NOTE | 2023-09-15 10:10 | PDOC.CMDIS ---
Date of service: 09/15/23 Time of Service: 10:10 LACE Index Scoring Tool Questions: Length of Stay (in days): 1 Was the patient admitted via the E.D.?: No Comorbidities: Diabetes w/o Complication and Liver or Renal Disease E.D. Visits: 0 Answers: Total Score: 6 Risk of Readmission: Low Risk Care Management Discharge Plan Reason for Hospitalization: Right Knee Infection Discharge Plan: Sylvia is discharged home via private vehicle with family. Pt will follow up with community providers and her discharge plan of care as instructed. Ortho follow up will be on 09/29/23, as scheduled. VNA services are recommended, pt refuses. Patient/Family Education Needs: Review discharge instructions, limitations, medications and plan to follow up with community providers. Discuss ask me three. Services Needed at Discharge: Home Health Care Services (Refused PT) SDOH Health Related Social Needs: No Data to Display
== END 2023-09-15 10:06 | disposition home health service (06) | DRG 467 ==
LOC: SUR 07:08 → MS 11:35
PROVIDERS: Admitting Provider Student in an Organized Health Care Education/Training Program; PCP Internal Medicine; Visit Provider Student in an Organized Health Care Education/Training Program
PROC: 0SWV0JZ Revision of Synthetic Substitute in Right Knee Joint, Tibial Surface, Open Approach (ICD-10-PCS; CPT 27487; principal; 2023-09-14 07:30)
DX: T84.84XA Pain due to internal orthopedic prosthetic devices, implants and grafts, initial encounter; Z68.43 Body mass index [BMI] 50.0-59.9, adult; T84.89XA Other specified complication of internal orthopedic prosthetic devices, implants and grafts, initial encounter; Z96.653 Presence of artificial knee joint, bilateral; E11.9 Type 2 diabetes mellitus without complications; E78.5 Hyperlipidemia, unspecified; I48.91 Unspecified atrial fibrillation; M10.9 Gout, unspecified; E66.01 Morbid (severe) obesity due to excess calories
CPT/HCPCS: 27486; 27430; 76942; 97162; 97530; C1776; J0665; J0690; J1100; J1805; J1815; J2001; J2250; J2371; J2405; J2704

== ENCOUNTER → 2023-09-29 10:53 | Outpatient (BNVA) | payer MEDICARE, SELFPAY | PROVIDERS: PCP Internal Medicine; Referring Provider Internal Medicine | DX: S86.811D Strain of other muscle(s) and tendon(s) at lower leg level, right leg, subsequent encounter (principal); X58.XXXD Exposure to other specified factors, subsequent encounter; T84.84XD Pain due to internal orthopedic prosthetic devices, implants and grafts, subsequent encounter; Z96.651 Presence of right artificial knee joint ==

== ENCOUNTER 2023-11-03 13:35 | Inpatient (IN) | payer MEDICARE, SELFPAY ==
--- NOTE | 2023-11-03 | DI.RAD_ITS ---
Exam(s) XR KNEE RT 2V AP,LAT EXAM: XR KNEE RT 2V AP,LAT CLINICAL HISTORY: Periprosthetic Knee Infection. TECHNIQUE: 2D digital imaging was performed. Two views. Portable COMPARISON: CR XR KNEE RT 2V AP,LAT from 09/05/2023 FINDINGS: BONES: There has been no change in the appearance of the total knee prosthesis. No cyst abnormal lelo rounding bony lucencies. No acute fracture is present. No bony destructive lesion is seen. JOINTS: The knee prosthesis is normally aligned. A large joint effusion is seen which contains air bu bbles, suspicious for infection. SOFT TISSUE: Portions of the posterior soft tissues are not included in the field of view on the cros s-table lateral. Posterior calcifications again noted. Soft tissue edema, greatest anteriorly. IMPRESSION: Marked anterior soft tissue swelling. Large joint effusion with gas in the joint space suspicious fo r infection. DATA REPOSITORY: RADIATION DOSE DELIVERED:
[2023-11-03 16:17] VITALS: BP 135/87; PULSE 84; RESP 18; TEMP 36.6; O2SAT 96
[2023-11-03 16:44] VITALS: BP 135/87; PULSE 84; RESP 18; TEMP 36.6; O2SAT 96
[2023-11-03] MEDS: Insulin Aspart 300 UNITS/3 ML PEN SC (17:51)
--- NOTE | 2023-11-03 18:11 | W.PM.HP.N ---
Date of service: 11/03/23 Time of Service: 19:00 Assessment and Plan Assessment and plan (1) Infection of prosthetic right knee joint: Status: Acute Assessment and plan: Sylvia has an infected right knee replacement. Her cell count is quite significant with pure pus pulled from the knee per report. I do not have any early cultures. However, given the appearance of suspect staph or strep. Is a very challenging diagnostic dilemma given that she had surgery 2 months ago for the torn retinaculum and dislocating patella with a negative aspiration. However, I am concerned given the elevated ESR this is more chronic or at least subacute than acute. Unfortunately, there are significant failure rates with debridement, antibiotics, and implant retention. I worry that just washing this out with polyethylene exchange may not be successful. I think a two-stage revision would be the most likely definitive treatment. I explained these 2 scenarios to Sylvia. She seems somewhat overwhelmed both at all and just wants it to be fixed. Based on the ESR and my suspicion, a two-stage revision is likely the best definitive treatment. However, this would require 2 surgeries although the spacer could remain for some period of time. Keeping the components and is doing the washout would be less morbidity overall. However, I think there would be substantial risk that the infection is not cleared which would not make infection eradication even harder in the future. My recommendation at this point would be to two-stage revision with the placement of a low friction spacer. I reviewed this with Sylvia. I discussed the risk to include bleeding, continued infection, fracture, damage to nerves or vessels, damage to muscle and tendons, need for repeat procedures. She understands these risks and agrees to proceed. All of her questions were answered. (2) Type 2 diabetes mellitus: Status: Acute Assessment and plan: Continue to monitor glucose closely. She had postoperative hyperglycemia last time and we important we keep her blood sugars less than 180 ideally. (3) COVID-19 virus infection: Status: Acute Assessment and plan: No cough. No fever. No difficulty breathing. Continue to monitor continuous oxygen saturations. Continue with supportive care. Maintain precautions per hospital policy although not apparently ill from the COVID infection. History of Present Illness History of Present Illness Chief Complaint: Right Knee Infection Narrative: Sylvia is a 77-year-old female who I know from previous surgeries. She underwent a right knee replacement in February of last year. She did very well from this and followed up with an knee replaced on the left side in April. She did well but started developing some pain in a popping sensation on her right knee. She had some minor falls but nothing major. However, she was found to have a dislocated patella and a torn arthrotomy. Therefore, I took her back to the operating room, after aspirating the knee which was negative for infection, and performed a repair of the quadriceps and the arthrotomy. She was placed in a knee immobilizer and was doing very well. She was seen her 2-week appointment. However, she was unable to make the 6-week appointment. She reports that about on Tuesday she developed worsening pain with weightbearing which limited her ability to put any pressure on the right knee. She feels that she was moving around prior to that. However, she does not leave her home and did not test more than that. She was only taking some ibuprofen. She denies any fevers or chills. She does report a preceding wound on the distal aspect of the right leg. She felt like something was crawling in around her lower leg wound. She feels that there was some redness and some purulence to this area but it has gotten better on its own. She was seen in the emergency department day due to increasing pain and weakness where she was found to have a C-reactive protein of around 147 mg/L and a sed rate of 48. She denies any high fever but did feel some chills with some malaise. She has had some fatigue. No issues medically otherwise. She denies chest pain or shortness of breath. She denies any cough. However, on admission to [facility] she was found to be COVID-positive. An aspiration of the right knee was performed which showed greater than 100,000 cells. Do not have any culture results. Blood cultures were drawn and do not have any results from those either. She does feel that there is been some redness and fullness to the knee for some weeks. However, she once again says is only became painful within the last week or so. No pain proximally. No radicular symptoms. No numbness or tingling. From [facility] I was called in consultation given I was the original surgeon for this knee. She was stable and thus I had her transferred to [facility]. Review of Systems All systems reviewed & are unremarkable except as noted in HPI and below PFSH All Active Problems (Updated 11/03/23 @ 20:53 by Sandeep Willett MD) COVID-19 virus infection (Acute) Infection of prosthetic right knee joint (Acute) History of left knee replacement (Acute 04/27/23) History of total right knee replacement (Acute 03/08/23) Atrial fibrillation (Chronic) Type 2 diabetes mellitus (Acute) Hyperlipidemia (Acute) Acquired cystic kidney disease (Acute) She denies this Medical History Cardiac murmur Pt. stated she said it was nothing to worry about, just gave me blood thinners (Pt. has Afib) Urinary incontinence Umbilical hernia Severe obesity Gout Benign neoplasm of adrenal gland Surgical History H/O bilateral breast reduction surgery H/O tubal ligation History of appendectomy H/O abdominoplasty H/O: hysterectomy Hx of cholecystectomy H/O umbilical hernia repair History of colonoscopy date of procedure 11/29/18 History of esophagogastroduodenoscopy Social History Smoking/Tobacco Use Status: Former Tobacco Use Quit Date: 04/18/07 Smoking risk assessment performed?: Yes Alcohol Intake: never Drug use: Never Substance use type: does not use Housing: house Do you feel safe at home: Yes Do you feel safe in your relationship?: Yes Meds Allergies and Home Medications Allergies Allergy/AdvReac Type Severity Reaction Status Date / Time latex Allergy Skin Rash Verified 09/29/23 11:03 lisinopril AdvReac Cough Verified 09/29/23 11:03 Home Medications ?Medication ?Instructions ?Recorded ?Confirmed ?Type allopurinol 100 mg tablet 100 mg PO DAILY 10/06/22 09/30/23 History metformin 500 mg tablet 500 mg PO DAILY 10/06/22 09/30/23 History metoprolol succinate 200 mg 200 mg PO DAILY 10/06/22 09/30/23 History capsule sprinkle, ext. release 24 hr valsartan 320 mg tablet 320 mg PO DAILY 10/06/22 09/30/23 History apixaban 5 mg tablet (Eliquis) 5 mg PO BID 12/31/22 09/30/23 History semaglutide 1 mg/dose (4 mg/3 mL) 1 mg subcut QWEEK 12/31/22 09/30/23 History subcutaneous pen injector (Ozempic) simvastatin 20 mg tablet 20 mg PO DAILY 04/29/23 09/30/23 History torsemide 10 mg tablet 10 mg PO DAILY 04/29/23 09/30/23 History acetaminophen 500 mg tablet 1,000 mg (2 x 500 mg) PO TID #90 09/14/23 09/30/23 Rx tabs celecoxib 200 mg capsule 200 mg PO BID #60 caps 09/14/23 09/30/23 Rx gabapentin 300 mg capsule 300 mg PO QHS #14 caps 09/14/23 09/30/23 Rx pantoprazole 40 mg tablet,delayed 40 mg PO DAILY #30 tabs 09/14/23 09/30/23 Rx release cefadroxil 500 mg capsule 500 mg PO BID #14 caps 09/15/23 09/30/23 Rx oxycodone 5 mg tablet 5 mg PO Q6H PRN pain #10 tabs 09/15/23 09/30/23 Rx Exam Const General: cooperative, comfortable and no acute distress Resp Effort & Inspection: normal respiratory effort and able to speak in complete sentences Cardio Rate: regular rate Rhythm: regular rhythm Extrem Other: Evaluation of the right knee shows a well-approximated incision except for an area, approxi-4 to 5 mm, where there is some diastases skin edges. There is some fibrinous material in the space. There is minimal expressible fluid. There is a large effusion about the right knee. There is hyperemia seen over the anterior medial aspect of the knee which is painful to palpation. There is some generalized erythema surrounding this although not seriously impressive. There is pain with all range of motion of the right knee. Minimal swelling seen within the lower legs. There is a scab about the distal aspect of the anterior medial right leg. Decree sensation in her feet, per baseline. Palpable DP and PT pulse. Results Imaging Imaging Studies: X-ray of the right knee shows a cementless knee and no fracture. There is some very slight lucency seen around the femur and the posterior margin of the tibia. There is air seen within the knee joint with large amounts of fluid. Posterior calcifications are also seen. Labs 11/03/23 13:37 Last Vital Signs Temp 36.6 C 11/03/23 16:44 Pulse 84 11/03/23 16:44 Resp 18 11/03/23 16:44 BP 135/87 11/03/23 16:44 Pulse Ox 96 11/03/23 16:44 Time Spent Time spent with Patient: 55-74 minutes Time was spent: preparing to see the patient(eg.review tests), obtaining and/or reviewing separately otained hiistory, ordering medications,tests, procedures, referring, communicating with other health medication care manager, indepentently interpreting results and counseling the patient
[2023-11-03] MEDS: Acetaminophen 500 MG TAB 1000 MG PO (21:19)
[2023-11-03] MEDS: Ascorbic Acid 500 MG TAB 1000 MG PO (21:19)
[2023-11-03] MEDS: oxyCODONE 5 MG TAB PO (21:20)
[2023-11-03 23:04] VITALS: BP 118/62; PULSE 111; RESP 16; TEMP 36.7; O2SAT 95
[2023-11-03] MEDS: HYDROmorphone 2 MG/ML SYR 0.5 MG IVP (23:18)
[2023-11-03] MEDS: Ondansetron 4 MG/2 ML VIAL IVP (23:19)
[2023-11-04] VITALS (12 sets, daily range): BP systolic 109–132; BP diastolic 64–87; PULSE 84–105; RESP 14–20; TEMP 36.2–36.8; O2SAT 92–97; BMI 49.9
[2023-11-04 08:57] LABS: Source Nasal/Nares
[2023-11-04 09:33] LABS: COVID-19 PCR POSITIVE (Negative)
--- NOTE | 2023-11-04 10:33 | INITIAL_ITS ---
Date of service: 11/04/23 Time of Service: 10:33 Care Management Initial Assmt Initial Assessment Reason for Hospitalization: Infected prosthetic right knee joint Functional Status/Living Situation Patient Presentation: Sylvia is on Covid precautions so CM did not meet with her in person. She also went to the OR for an I&D of her knee so was not available by phone. Town of Residence: [place], [place] Advance Directives Advance Directives: Do you have an Advance Directive: N 12/31/22 09:31 AD On File at [facility]: N 03/24/23 10:00 Date Asked 11/03/23 11/03/23 16:11 AD Date Reviewed COLST On File at [facility] COLST Date Scanned Code Status Resuscitation Status Full Code Insurance Coverage/Financial Issues Insurance: Medicare [place] [facility] Care Team Visit Care Team Role Provider Type Rachael Mejia Primary Care Provider [facility] STAFF PHYSICIAN Sandeep Willett MD Admit Provider [facility] STAFF PHYSICIAN Attending Provider Discharge Potential Discharge Needs: Surgical F/U Appt Anticipated Barriers to Discharge: None Identified Patient/Family Education Needs: Review discharge instructions, discuss Ask Me Three Transportation: Private vehicle Plan: Anticipate Sylvia will be discharged home, possibly with new home health services for wound care, when medically stable. She will follow up with her orthopedic surgeon and plan of care and transport with family. CM will follow and continue to assess fro discharge planning concerns. SDOH(Care Management) Screening Will the Patient Participate in the Screening?: Declined to provide PFSH All Active Problems Other spontaneous disruption of capsular ligament of left knee (Acute) Infection of prosthetic right knee joint (Acute) S/P I&D, synovectomy and polyethylene exchange: 11/04/2023 History of left knee replacement (Acute 04/27/23) History of total right knee replacement (Acute 03/08/23) Type 2 diabetes mellitus (Acute) Acquired cystic kidney disease (Acute) She denies this Medical History Hypertension Bacteremia Atrial fibrillation Hyperlipidemia Cardiac murmur Pt. stated she said it was nothing to worry about, just gave me blood thinners (Pt. has Afib) Urinary incontinence Umbilical hernia Severe obesity Gout Benign neoplasm of adrenal gland Surgical History H/O bilateral breast reduction surgery H/O tubal ligation History of appendectomy H/O abdominoplasty H/O: hysterectomy Hx of cholecystectomy H/O umbilical hernia repair History of colonoscopy date of procedure 11/29/18 History of esophagogastroduodenoscopy Family History Mother Diabetes Granddaughter Diabetes Brother Cancer Social History Smoking/Tobacco Use Status: Former Tobacco Use Quit Date: 04/18/07 Smoking risk assessment performed?: Yes Alcohol Intake: never Drug use: Never Substance use type: does not use Housing: house Do you feel safe at home: Yes Do you feel safe in your relationship?: Yes Additional Social history: Lives with and one grandson in [place]. Granddaughter Vashti helps her with healthcare
--- NOTE | 2023-11-04 10:33 | ANES.PREOP_ITS ---
General Info Date of Service Date Performed: 11/04/23 Height: 5 ft 2 in Weight: 123.831 kg Body Mass Index (BMI): 49.9 Surgical Procedure: Operation Date: 11/04/23 11:55 Proposed Procedure Side Surgeon p Explant of Hardware and antibiotic spacer placement Sandeep Willett MD Meds Allergies and Home Medications Allergies Allergy/AdvReac Type Severity Reaction Status Date / Time latex Allergy Skin Rash Verified 09/29/23 11:03 lisinopril AdvReac Cough Verified 09/29/23 11:03 Home Medication ?Medication ?Instructions ?Recorded allopurinol 100 mg tablet 100 mg PO DAILY 10/06/22 metformin 500 mg tablet 500 mg PO DAILY 10/06/22 valsartan 320 mg tablet 320 mg PO DAILY 10/06/22 apixaban 5 mg tablet (Eliquis) 5 mg PO BID 12/31/22 semaglutide 1 mg/dose (4 mg/3 mL) 1 mg subcut QWEEK 12/31/22 subcutaneous pen injector (Ozempic) simvastatin 20 mg tablet 20 mg PO DAILY 04/29/23 torsemide 10 mg tablet 10 mg PO DAILY 04/29/23 acetaminophen 500 mg tablet 1,000 mg (2 x 500 mg) PO TID #90 09/14/23 tabs celecoxib 200 mg capsule 200 mg PO BID #60 caps 09/14/23 gabapentin 300 mg capsule 300 mg PO QHS #14 caps 09/14/23 pantoprazole 40 mg tablet,delayed 40 mg PO DAILY #30 tabs 09/14/23 release cefadroxil 500 mg capsule 500 mg PO BID #14 caps 09/15/23 oxycodone 5 mg tablet 5 mg PO Q6H PRN pain #10 tabs 09/15/23 metoprolol succinate 200 mg 200 mg PO DAILY 11/04/23 tablet,extended release 24 hr Current Visit Medications: Current Medications Generic Name Dose Route Start Last Admin Trade Name Freq PRN Reason Stop Dose Admin Acetaminophen 1,000 mg 11/03/23 20:00 11/03/23 21:19 Acetaminophen 500 Mg Tab PO 1,000 mg TID ROBBI Administration Allopurinol 100 mg 11/04/23 08:30 Allopurinol 100 Mg Tab PO DAILY ROBBI Ascorbic Acid 1,000 mg 11/03/23 20:00 11/03/23 21:19 Ascorbic Acid 500 Mg Tab PO 11/10/23 19:59 1,000 mg BID ROBBI Administration Cholecalciferol 2,000 units 11/04/23 08:30 Cholecalciferol (Vitamin D3) 1,000 Unit Tab PO DAILY [facility] Dextrose 0 gm 11/03/23 13:35 Glucose Oral Gel 15 Gm/37.5 Gm Tube PO DIRECTED PRN Dextrose/Water 0 gm 11/03/23 13:35 Dextrose 50%-Water 25 Gm/50 Ml Syr IVP DIRECTED PRN Hydromorphone HCl 0.5 mg 11/03/23 13:35 11/03/23 23:18 Hydromorphone 2 Mg/Ml Syr IVP 0.5 mg Q2H PRN PRN Administration Ringer's Solution 1,000 mls @ 80 mls/hr 11/04/23 06:00 IV INFUSION [facility] Tranexamic Acid/Sodium Chloride 1,000 mg in 100 mls @ 600 mls/hr 11/04/23 06:30 IVPB PREOP [facility] Sodium Chloride 500 mls @ 0 mls/hr 11/04/23 09:30 Saline 500ml Bag IV DIRECTED PRN As Directed IV Miscellaneous Supplies 1 each 11/04/23 09:30 Iv Access IV DIRECTED [facility] Insulin Aspart 0 units 11/03/23 17:00 11/03/23 17:51 Insulin Aspart 300 Units/3 Ml Pen SC 4 units 0800,1200,1700 [facility] Administration Protocol Metformin HCl 500 mg 11/04/23 08:30 Metformin 500 Mg Tab PO DAILY [facility] Metoprolol Tartrate 100 mg 11/04/23 08:30 Metoprolol 50 Mg Tab PO BID [facility] Ondansetron HCl 4 mg 11/03/23 13:35 11/03/23 23:19 Ondansetron 4 Mg/2 Ml Vial IVP 4 mg Q6H PRN PRN Administration Nausea Oxycodone HCl 0 mg 11/03/23 13:35 11/03/23 21:20 Oxycodone 5 Mg Tab PO 10 mg Q3H PRN PRN Administration Pain Pantoprazole Sodium 40 mg 11/05/23 07:30 Pantoprazole 40 Mg Tabcr PO DAILY@0730 [facility] Simvastatin 20 mg 11/04/23 20:00 Simvastatin 20 Mg Tab PO QPM [facility] Sodium Chloride 0 ml 11/04/23 09:30 Normal Saline Flush 10 Ml Syr IVP PRN PRN Torsemide 10 mg 11/05/23 08:30 Torsemide 10 Mg Tab PO DAILY ROBBI Valsartan 320 mg 11/04/23 08:30 Valsartan 80 Mg Tab PO DAILY ROBBI Zinc Sulfate 220 mg 11/04/23 08:30 Zinc Sulfate 220 Mg Tab PO 11/11/23 08:29 DAILY ROBBI PFSH Active Problems Active Problems: Problem Status Onset Code COVID-19 virus infection Acute U07.1 Infection of prosthetic right knee joint Acute T84.53XA History of left knee replacement Acute 04/27/23 Z96.652 History of total right knee replacement Acute 03/08/23 Z96.651 Atrial fibrillation Chronic I48.91 Type 2 diabetes mellitus Acute E11.9 Hyperlipidemia Acute E78.5 Acquired cystic kidney disease Acute N28.1 Medical History Medical History Cardiac murmur Pt. stated she said it was nothing to worry about, just gave me blood thinners (Pt. has Afib) Urinary incontinence Umbilical hernia Severe obesity Gout Benign neoplasm of adrenal gland Surgical History Surgical History H/O bilateral breast reduction surgery H/O tubal ligation History of appendectomy H/O abdominoplasty H/O: hysterectomy Hx of cholecystectomy H/O umbilical hernia repair History of colonoscopy date of procedure 11/29/18 History of esophagogastroduodenoscopy Tobacco Smoking/Tobacco Use Status: Former Tobacco Use Alcohol Alcohol Intake: never Substance Use Substance use: Never Substance use type: does not use Vital Signs and Lab Results Vital Signs Most Recent Vital Signs in EMR: Most Recent Vital Signs Temp Pulse Resp BP Pulse Ox 36.2 C L 99 H 18 132/64 96 11/04/23 08:42 11/04/23 08:42 11/04/23 04:47 11/04/23 08:42 11/04/23 08:42 Point of Care Results Point of Care Results: Finger Stick Blood Glucose 202 11/04/23 08:53 Lab Results 11/03/23 13:37 Blood Type / Crossmatch: 2 Antibody Screen Pending 11/03/23 Complete Blood Count: 2 No Data to Display Complete Metabolic Panel: 2 Magnesium Pending 11/03/23 13:37 Albumin Pending 11/03/23 13:37 Hemoglobin A1c Pending 11/03/23 13:37 C-Reactive Protein Pending 11/03/23 13:37 Liver Function Panel: 2 Alanine Aminotransferase (ALT/SGPT) Pending 11/03/23 13: 37 Aspartate Amino Transf (AST/SGOT) Pending 11/03/23 13:37 Coagulation Panel: 2 No Data to Display Cardiac Panel: 2 No Data to Display Arterial Blood Gas: 2 No Data to Display Venous Blood Gas: 2 No Data to Display Pancreas Panel: 2 No Data to Display Thyroid Panel: 2 No Data to Display Infectious Disease: 2 Coronavirus (COVID-19)(PCR) POSITIVE (Negative) A* 11/04/23 08 :50 Coronavirus 2019 Source Nasal/Nares 11/04/23 08:50 Blood Cultures: 2 No Data to Display Toxicology Panel: 2 No Data to Display Anesthesia Assessment and Plan Anesthesia History Personal History: No History of Anesthesia Complications Family History: No Family History of Anesthesia Complications Exercise Tolerance Exercise Tolerance: Metabolic Equivalents<4 Pertinent Negatives Pertinent Negatives: No Symptoms of GERD Cardiac & Pulmonary Exam Cardiac Exam: Other Pulmonary Exam: Clear Bilateral Breath Sounds Implantable Cardiac Device Does patient have a Pacemaker or an ICD?: No Airway Exam Known Difficult Airway: No Mallampati Class: 2 Mouth Opening: Normal (> 3cm) Thyromental Distance: Greater than 3 cm Neck Range of Motion: Full ROM Neck Circumference: Thick Teeth Condition: Removable Dentures/Plates Upper ASA Classification ASA Score: ASA 3 Emergency Case?: No NPO Status NPO Status: NPO Clears >2 hours, Solids >8 hours Anesthesia Plan Resuscitation Status: Full Code Anesthesia Technique: General Anesthesia Airway Planned: LMA Monitors Used: Standard Monitors Preoperative Comments:: I repeated COVID test which remains positive. I spoke to Sylvia is on room phone. She states she last took Ozempic at least 2 weeks ago, Elaquis likely on Tuesday, but unsure. She states she was sneezing last week, but denies any URI symptoms today out of the usual for her (rare dry cough). Will forego spinal as elaquis timing is uncertain. Will proceed today given active infection.
[2023-11-04] MEDS: Valsartan 80 MG TAB 320 MG PO (11:39)
[2023-11-04] MEDS: Metoprolol 50 MG TAB 100 MG PO ×2 (11:40→20:41)
[2023-11-04] MEDS: Acetaminophen 500 MG TAB 1000 MG PO ×2 (11:59→20:42)
[2023-11-04] MEDS: Zinc Sulfate 220 MG TAB PO (11:59)
[2023-11-04] MEDS: Cholecalciferol (Vitamin D3) 1,000 UNIT TAB 2000 UNITS PO (12:00)
[2023-11-04] MEDS: Allopurinol 100 MG TAB PO (12:00)
[2023-11-04] MEDS: Ascorbic Acid 500 MG TAB 1000 MG PO ×2 (12:00→20:42)
--- NOTE | 2023-11-04 12:40 | PGE_ITS ---
Date of Service Date of service: 11/04/23 Time of Service: 12:30 Assessment and Plan Assessment and plan (1) Infection of prosthetic right knee joint: Status: Acute Assessment and plan: Ongoing infection about the right knee. I recommend we proceed with operative treatment today. I discussed this yesterday with her. She has no questions. We will likely perform a debridement with antibiotics and implant retention versus spacer placement after explantation of the components depending on the environment of the knee when it is open. Hold antibiotics until the operating room. (2) COVID-19 virus infection: Status: Acute Assessment and plan: Continue supportive measures and precautions. No active respiratory symptoms. (3) Type 2 diabetes mellitus: Status: Acute Assessment and plan: Continue heparin Icenia. Sliding scale with resistant setting. Plan to check A1c. Consider hospitalist consultation (4) Bacteremia: Status: Acute Assessment and plan: Positive blood cultures from [facility]. We will repeat those blood cultures here. Start antibiotics after knee surgery. Subjective Subjective Interval history since last seen: No significant changes. Continued pain about the right knee. She did receive pain medications which helped out. Blood was unable to be obtained and thus we will obtain it today in the operating room. Gram-positive cocci in culture from the blood. No growth on the knee. Objective Last Vital Signs Temp 36.6 C 11/04/23 15:35 Pulse 87 11/04/23 15:35 Resp 20 11/04/23 15:35 BP 109/66 11/04/23 15:35 Pulse Ox 94 11/04/23 15:35 Laboratory Results - last 24 hr 11/04/23 11/04/23 11/04/23 08:42 08:50 14:00 ESR 67 H Sodium 140 Potassium 4.4 Chloride 106 Carbon Dioxide 27.2 Anion Gap 6.8 BUN 24 H Creatinine 1.0 Est GFR (CKD-EPI 2020) 58.02 Glucose 172 H Hemoglobin A1c 9.4 H Calcium 9.2 Magnesium 1.9 Total Bilirubin 0.32 AST 11 L ALT 15 Alkaline Phosphatase 123 H C-Reactive Protein 8.55 H Total Protein 7.1 Albumin 2.0 L COVID-19 Source Cancelled Nasal/Nares SARS-CoV-2 (PCR) Cancelled POSITIVE A* ABO/Rh A Positive Antibody Screen NEGATIVE Time Spent with Patient Time Spent with Patient: <25 minutes Time was spent: preparing to see the patient(eg.review tests), referring, communicating with other health childcare center director and counseling the patient
[2023-11-04] MEDS: Lactated Ringers 1,000 ML 80 ML IV (13:20)
[2023-11-04] MEDS: Tranexamic Acid 1,000 MG/10 ML VIAL 1000 MG (13:35)
[2023-11-04] MEDS: ceFAZolin 3,000 MG in Normal Saline 100 ML 200 MG IVPB (14:04)
[2023-11-04] MEDS: VANCOMYCIN/WATER (PEG) 2 GM/400 ML BAG IVPB (14:11)
[2023-11-04 14:25] LABS: ESR 67 mm/hr (0-30)
[2023-11-04 14:37] LABS: Hemoglobin A1C 9.4 % (<5.7)
[2023-11-04 14:47] LABS: ALT 15 U/L (14-59); AST 11 U/L (15-37); Alkaline Phosphatase 123 U/L (46-116); Anion Gap 6.8 mmol/L (3-11); BUN 24 mg/dL (7-18); Bilirubin, Total 0.32 mg/dL (0.2-1.0); C-Reactive Protein 8.55 mg/dL (<or=0.5); CO2 27.2 mmol/L (21.0-32.0); Calcium 9.2 mg/dL (8.5-10.1); Chloride 106 mmol/L (98-107); Estimated GFR 58.02 (mL/min/1.73m2); Glucose 172 mg/dL (74-106); Magnesium 1.9 mg/dL (1.8-2.4); Potassium 4.4 mmol/L (3.5-5.1); Sodium 140 mmol/L (136-145); Total Protein 7.1 g/dL (6.4-8.2)
--- NOTE | 2023-11-04 15:33 | W.PM.OP ---
Date of service: 11/04/23 Time of Service: 13:45 Operative Note Operative Note DATE OF PROCEDURE: 11/04/23 PRE-OP DIAGNOSIS: Periprosthetic infection?right knee POST-OP DIAGNOSIS: same PROCEDURE: Irrigation and Debridement, Synovectomy, and Polyethylene Exchange - RIGHT Knee NEPTALI Vacuum Assisted Dressing Application SURGEON: Sandeep Willett CHAIN SPLITTER: Jacquelyn Castillo ANESTHESIA TYPE: General LMA/ETT Refer to Anesthesia Record ESTIMATED BLOOD LOSS: 250 PATHOLOGY: other (4 cultures in total were sent) Implants: [employer] 6x16 CR/FB Polyethylene Indications: Sylvia is a 77-year-old female who is status post right knee replacement. This was complicated by an arthrotomy rupture which was repaired about 7 weeks ago. She was doing well initially but then developed some pain over the past week or so with a sore about the right leg. She had increasing pain about the right leg and was last seen in [facility] and diagnosed with infected right knee. She was transferred to [facility] for definitive care. Given the situation I recommended proceeding urgently with surgical treatment of this infection about the right knee. I reviewed the risks to include bleeding, infection, pain, stiffness, damage to nerves and vessels, damage to muscle tendons, recurrence, blood clot, cardiopulmonary demise. Despite these risks, she elected to proceed. Findings: There is a small, 4 mm, draining aspect of the distal part of the wound which communicated with a pocket of pus seen anteriorly about the knee and anterior medially. There is a small defect in the arthrotomy distally with purulence noted inside the knee. Procedure Description: Sylvia was greeted in the operating room due to her COVID status where the correct side was identified and marked. The consent was reviewed with the patient and signed. The history and physical was updated. All questions were answered. A general anesthestic was administered. The patient was placed into the supine position on the operating room table. Posts were placed for positioning during the procedure. All bony prominences were well padded. Prophylactic antibiotics in the form of Cefazolin were administered. The left leg was then prepped with Chloraprep and draped in a standard fashion with impervious stockinette. A second prep with Chloraprep was performed prior to application of Iodine impregnated skin protection. A timeout to confirm correct identity, side and site, procedure, allergies, anesthesia, and medical concerns was performed. With the knee in some flexion, a midline incision was made overlying the knee utilizing the previous incision. Full thickness skin flaps were raised once the extensor mechanism was encountered. These were raised medially and laterally. Immediately there was notable purulence encountered. A swab of this material was sent to the lab for anaerobic and aerobic cultures. Any bleeding was controlled with electrocautery. Medial and lateral skin flaps were raised to fully evaluate the extensor mechanism. There is no defect of the arthrotomy. However, there was obvious purulent drainage from inside the knee coming from the very distal aspect of the retinacular repair over the proximal medial tibia. The previous repair for the dislocating patella and the arthrotomy rupture was intact. FiberWire sutures were removed. An aggressive debridement is performed with a rongeur within the superficial space. An arthrotomy was then performed. This was taken down sharply with a knife into the knee. Once again there was some purulent material encountered right away. However, after this was evacuated there is no significant purulent debris encountered. I did swab the back of the need to send to the lab. I also took tissue cultures from the anterior femur. I performed an aggressive synovectomy utilizing 2 Allis and 2 Jennifer clamps throughout the knee. Once it was debrided the knee was flexed up and the polyethylene was removed. Another tissue sample was taken from the posterior aspect of the knee. A rongeur was utilized to continue the synovectomy throughout the knee inspecting all areas anteriorly, posteriorly, medially, laterally. Once this was felt to be complete, I irrigated the knee with 3 L of normal saline with a pulse lavage. We stopped intermittently to inspect the knee and perform any other sharp debridement necessary. After this was completed the interface between the femur and bone and tibia bone was fully inspected. There is no bony saw spots. A bone tamp was used to impact the femur and tibia and there is no motion at the interface and no sign of loosening. Therefore the plan was to continue with implant retention. The knee was brought back into extension and Betadine was used as irrigated throughout the knee where it sat for 5 minutes. After which, it was irrigated out with saline. The periosteal and capsular tissues were then systematically injected with a periarticular cocktail consisting of 100 cc of ropivacaine, epinephrine, clonidine, and ketorolac. The knee was flexed back up and the 6 x 60 mm polyethylene was then inserted. With the knee held in 90 degrees of flexion, the tissues were repaired. Using #1 Antimicrobial PDS, the arthrotomy and quadriceps split was repaired. This was done in interrupted fashion using [id number] and simple sutures. There was great reapproximation of these tissues to each other and stable up to at least 90 degrees of flexion. There is no notable gapping of the arthrotomy site. Once again, the wound was thoroughly irrigated. Deep tissues were then reapproximated with 0 Monocryl and 2-0 Monocryl. The skin was closed with belinda. A neptali vacuum-assisted dressing was then applied along with a [id number] ALEX wrap. A CryoCuff was applied. Sylvia was transferred to the hospital stretcher without difficulty an suffering no apparent complication. Sylvia has a gaurded prognosis. Her home dose of apixaban 5 mg twice daily will be used for DVT prophylaxis. She will be started on broad-spectrum antibiotics, vancomycin and ceftriaxone, with addition of rifampin tomorrow.
--- NOTE | 2023-11-04 15:38 | PHA.REVIEW2 ---
Pharmacy Admission Review Admission Clinical Review Admission Pharmacy Review: COVID-19 virus infection (Acute) Infection of prosthetic right knee joint (Acute) Type 2 diabetes mellitus (Acute) latex Allergy (Verified 09/29/23 11:03) Skin Rash lisinopril Adverse Reaction (Verified 09/29/23 11:03) Cough Resuscitation Status Full Code Height 5 ft 2 in Weight 123.831 kg Pharmacy Admission Review Renal Dosing Renal Dosing: BUN 24 mg/dL (7-18) H 11/04/23 14:00 Creatinine 1.0 mg/dL (0.55-1.02) 11/04/23 14:00 Medications needing adjustments: Reviewed (CrCl 59.2 mL/min) List of meds needing interventions: Current medications are okay Anticoagulation Anticoagulation: Creatinine 1.0 mg/dL (0.55-1.02) 11/04/23 14:00 DVT Prophylaxis: Reviewed Medications: Apixaban (5mg PO BID) Opiate Usage Evaluate Pain Scale/Pains Meds: Reviewed (PRN hydromorphone and oxycodone) Scheduled Bowel Reg ordered if on Opiates?: No Relevant Labs Relevant Labs: ESR 67 mm/hr (0-30) H 11/04/23 14:00 Sodium 140 mmol/L (136-145) 11/04/23 14:00 Potassium 4.4 mmol/L (3.5-5.1) 11/04/23 14:00 Chloride 106 mmol/L (98-107) 11/04/23 14:00 Magnesium 1.9 mg/dL (1.8-2.4) 11/04/23 14:00 C-Reactive Protein 8.55 mg/dL (<or=0.5) H 11/04/23 14:00 Electrolytes, C-Reactive P, ESR: Reviewed DM Control DM Control: Glucose 172 mg/dL (74-106) H 11/04/23 14:00 Hemoglobin A1c 9.4 % (<5.7) H 11/04/23 14:00 Finger Stick Blood Glucose 191 1131 Finger Stick Blood Glucose 191 1131 Finger Stick Blood Glucose 202 0853 Finger Stick Blood Glucose 202 0853 DM Control: Reviewed Insulin Dosing, Diabetic Medication: Has order for SS insulin and metformin Cardiac Review BP, HR, EF%: Reviewed (BP WNL, HR 98) QTc Review QTc: Reviewed (No EKG on file) IV to PO Switch IV Medications: Reviewed (ceftriaxone, hydromorphone, ondansetron and vancomycin) Home Meds Home Med List reviewed: Reviewed Relevent Home Meds Not ordered & why?: Celecoxib and Ozempic (has order for SS insulin and metformin) Current Meds Current Medication Order Review: Intervened Comments: Added IV admission order set Changed pantoprazole timing from 0830 to 0730 per pharmacy protocol Pharmacy Antibiotic Review Relevant Labs: Temperature 36.6 C Temperature 36.6 C Temperature 36.6 C Temperature 36.6 C Temperature 36.2 C Temperature 36.2 C Temperature 36.4 C Relevant Labs 11/04/23 14:00 C-Reactive Protein 8.55 H Pharmacy Antibiotic Activity: C/S review and Reviewed, no change Comments: Patient is on vancomycin and ceftriaxone, day 1 for infected right knee post prosthetic placement. Vancomycin currently dosed at 1000mg q12h with predicted AUC of 581 and trough of 17.7. Level ordered for tomorrow at 1200, will adjust dose if needed. Cultures pending.
--- NOTE | 2023-11-04 15:44 | W.ANESPOSTOP ---
Postoperative Evaluation Date, Time and Location Date Performed: 11/04/23 Time Performed: 15:44 Patient Location: PACU Vital Signs Most Recent Imported Vital Signs: Most Recent Vital Signs Temp Pulse Resp BP Pulse Ox 36.6 C 98 H 18 125/83 92 11/04/23 15:40 11/04/23 15:40 11/04/23 15:40 11/04/23 15:40 11/04/23 15:40 Pain Score Most Recent Pain Score: Most Recent Pain Score Pain Level 5 11/04/23 15:40 Assessment Mental Status: Awake (Alert & Oriented to Patient Baseline) Airway and Respiratory Function: Patent airway with normal (patient baseline) respiratory exam Cardiovascular Function: Hemodynamically Stable Hydration Status: Adequately Hydrated Nausea & Vomiting: No Nausea or Vomiting Pain: Pain is tolerable per patient Peripheral Nerve Block: Patient did not receive a nerve block
--- NOTE | 2023-11-04 17:12 | MCONE_ITS ---
Date of service: 11/04/23 Time of Service: 17:12 Assessment and Plan Assessment and plan (1) Type 2 diabetes mellitus: Status: Acute Assessment and plan: Elevated A1c of 9.4% reflects a recent average glucose in the low 200s. She has not been that high here, but I would expect that she will by hyperglycemic as she starts eating. I agree with continuing the metformin (renal function stable and no recent contrast). I think it is safe to restart her GLP-1, which has metabolic benefits for her. I will start conservative dosing of glargine and sliding scale to overcome any glucose toxicity and control the blood sugar to promote healing, but not seek overly tight control. Qualifiers: Diabetes mellitus custodial insulin use: without termite control servicer use Diabetes mellitus complication status: with hyperglycemia Qualified Code(s): E11.65 - Type 2 diabetes mellitus with hyperglycemia (2) COVID-19: Status: Acute Assessment and plan: She is not symptomatic, so I would not recommend IV or oral therapy at this point. Monitor for symptoms. (3) Atrial fibrillation: Status: Chronic Assessment and plan: She is on apixaban and metoprolol chronically, continue Apixaban covers DVT prophylaxis Qualifiers: Atrial fibrillation type: longstanding persistent Qualified Code(s): I 48.11 - Longstanding persistent atrial fibrillation (4) Hyperlipidemia: Status: Acute Assessment and plan: continue outpatient statin (5) Bacteremia: Status: Acute Assessment and plan: On ceftriaxone and vancomycin with cultures pending, growing GPC. Narrow when we get further culture results. Fortunately she does not look clinically toxic or septic. (6) Infection of prosthetic right knee joint: Status: Acute Assessment and plan: POD #0 s/p procedure as above, management per orthopedics. Also on rifampin as part of antibiotic regimen. PT seeing patient. (7) Gout: Assessment and plan: continue outpatient allopurinol (8) Hypertension: Status: Chronic Assessment and plan: She is on her outpatient regimen of valsartan as well as torsemide. We don't have a history of CHF, so it appears torsemide is for symptoms. Lytes and BP are good now, monitor. History of Present Illness History of Present Illness Chief Complaint: knee pain Narrative: 77 yo F with history of atrial fibrillation, BMI of 50, and type 2 DM who was admitted for infection of her prosthetic right knee who underwent an irrigation and debridement, synovectomy, and polyethylene exchange of her right knee today. Her A1c was noted to be 9.4% and screening COVID PCR was positive. Medicine consult requested. She confirms she has no runny nose, taste/smell change, sore throat, cough, fever, or shortness of breath. She states she takes her metformin as an outpatient but has been missing her Ozempic for several weeks. She denies any concern for ADRs with the Ozempic. Her previous A1c was 6.3%. She denies polyuria, polydypsia, or recent weight loss. Consults Consult date: 11/04/23 Requesting physician: Sandeep Willett Review of Systems All systems reviewed & are unremarkable except as noted in HPI and below Constitutional Constitutional: Denies fatigue Gastrointestinal Gastrointestinal: Denies abdominal pain and Reports change in bowel habits (usually has daily BMs, none since Tuesday) Endocrine Endocrine: Denies fatigue PFSH All Active Problems (Updated 11/04/23 @ 17:41 by Devon Ford) Hypertension (Chronic) COVID-19 (Acute) Bacteremia (Acute) COVID-19 virus infection (Acute) Infection of prosthetic right knee joint (Acute) History of left knee replacement (Acute 04/27/23) History of total right knee replacement (Acute 03/08/23) Atrial fibrillation (Chronic) Type 2 diabetes mellitus (Acute) Hyperlipidemia (Acute) Acquired cystic kidney disease (Acute) She denies this Medical History Cardiac murmur Pt. stated she said it was nothing to worry about, just gave me blood thinners (Pt. has Afib) Urinary incontinence Umbilical hernia Severe obesity Gout Benign neoplasm of adrenal gland Surgical History H/O bilateral breast reduction surgery H/O tubal ligation History of appendectomy H/O abdominoplasty H/O: hysterectomy Hx of cholecystectomy H/O umbilical hernia repair History of colonoscopy date of procedure 11/29/18 History of esophagogastroduodenoscopy Family History (Updated 11/04/23 @ 17:23 by Devon Ford) Mother Diabetes Granddaughter Diabetes Brother Cancer Social History (Updated 11/04/23 @ 17:25 by Devon Ford) Smoking/Tobacco Use Status: Former Tobacco Use Quit Date: 04/18/07 Smoking risk assessment performed?: Yes Alcohol Intake: never Drug use: Never Substance use type: does not use Housing: house Do you feel safe at home: Yes Do you feel safe in your relationship?: Yes Additional Social history: Lives with and one grandson in [place]. Granddaughter Vashti helps her with healthcare Exam Narrative Exam Narrative: GEN: Alert and oriented x 4, pleasant and cooperative, gives linear history. No acute distress at rest. HEENT: Head atraumatic. Conjunctiva clear, no icterus. PEERL, EOMI. no rhinorrhea. MMM, OP benign. Neck is supple with no masses or lymphadenopathy, trachea midline LUNGS: CTAB with normal effort CV: irregularly irregular, I do not appreciate a murmur (with COVID stethoscope), no gallops, or rubs. ABD: active bowel sounds, soft, nontender and nondistended. No masses. EXT: no cyanosis, clubbing, or edema, cap refill in toes <2 seconds bilaterally. MSK: Right leg in brace/wrapped. No other joint redness/swelling. NEURO: CN 2-12 grossly intact. Intact movement of 4 extremities. Normal speech and coordination. No tremor SKIN: No rashes or open wounds, thick cracking callus right first toe, no open wound. Right leg dressed. PSYCH: normal mood and affect, normal thought process. Results Last Vital Signs Temp 36.6 C 11/04/23 15:51 Pulse 96 H 11/04/23 15:51 Resp 18 11/04/23 15:51 BP 120/77 11/04/23 15:51 Pulse Ox 95 11/04/23 15:51 Labs 11/04/23 14:00 Labs: Laboratory Results - last 24 hr 11/04/23 11/04/23 11/04/23 08:42 08:50 14:00 ESR 67 H Sodium 140 Potassium 4.4 Chloride 106 Carbon Dioxide 27.2 Anion Gap 6.8 BUN 24 H Creatinine 1.0 Est GFR (CKD-EPI 2020) 58.02 Glucose 172 H Hemoglobin A1c 9.4 H Calcium 9.2 Magnesium 1.9 Total Bilirubin 0.32 AST 11 L ALT 15 Alkaline Phosphatase 123 H C-Reactive Protein 8.55 H Total Protein 7.1 Albumin 2.0 L COVID-19 Source Cancelled Nasal/Nares SARS-CoV-2 (PCR) Cancelled POSITIVE A* ABO/Rh A Positive Antibody Screen NEGATIVE
--- NOTE | 2023-11-04 17:13 | PT.INIE ---
PT Notes Visit Reasons: Periprosthetic Infection-Right Knee Inpatient Physical Therapy Evaluation Date: 11/04/23 Referring Doctor: Dr. Willett PT Orders: PT CONSULT: s/p I&D right TKA. No flexion > 90* Precautions: NO RIGHT KNEE FLEXION > 90* Patient Profile/Admitting Diagnosis: Sylvia admitted for medical management of infection of right TKA, now s/p Irrigation and Debridement, Synovectomy, and Polyethylene Exchange - RIGHT Knee with NEPTALI Vacuum Assisted Dressing Application, post op day #0. 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 She then developed another infection, and underwent surgery as above this morning. Social History/Home Situation: Patient lives with in a private room with ramp to enter. Will have support of children and grandchildren at home, with many of them living just a few minutes down the road. She had been ambulating with FWW and brace since her last surgery, although has been non-ambulatory for the past 5 days. Utilizes lift chair at home. Equipment Owned/DME: FWW, lift chair Subjective: Sylvia states that she is feeling well. She does have pain in the right knee, rating as 4/10. She's apprehensive about getting up. Objective: General Observation: Resting in bed with IV in RUE, pulse oximtetry to left hand, Mercado catheter in place, ALEX wrap to left LE with Neptali wound vac in place. Mental Status: A&Ox3. Pleasant and cooperative. Pain: 4/10 left knee Vital Signs: monitored by nursing ROM: Right Upper Extremity: WFL Left Upper Extremity: WFL Right Lower Extremity: Left knee extension is full passively. Functionally demonstrates hip flexion to 80*, knee flexion to 80*. Verbalizes understanding of restrictions in knee flexion without cues. Left Lower Extremity: Left knee 0-90* functionally. Strength: Right Upper Extremity: Triceps 4/5. Biceps 3/5 or greater (not assessed with resistance due to IV lines). Left Upper Extremity: Triceps 4/5. Biceps 3/5 or greater (not assessed with resistance due to IV lines). Right Lower Extremity: Ankle DF 3/5 or greater. Left Lower Extremity: Unable to perform active SLR with non-operative leg, requiring 75% assist. Able to perform LAQ. Ankle DF 3/5 or greater. Bed Mobility/Transfers: supine-sit: min A x 1 sit-stand: mod A x 2 with bed maximally elevated. Requires multiple attempts. Cues for slight advancement or RLE to avoid pushing off right leg. stand-sit: min A x 2, cues for sliding right leg out to protect quad tendon repair sit-supine: max A x 2 Gait: Able to perform side steps x 3 with FWW, min A x 2. Balance: Static Sitting: Good Dynamic Sitting: Fair Static Standing: Poor Dynamic Standing: Poor Special Tests: Mobility Limitations Standardized Measure [facility] AM-PAC 6 clicks Basic Mobility Inpatient Short Form: Raw Score: 10 CMS Score: 77% impairment Informed Consent/Education: Patient instructed in purpose of PT consult and plan of care. Assessment: Patient is a 77 year old female referred to physical therapy services with the diagnosis of right total knee infection now s/p Irrigation and Debridement, Synovectomy, and Polyethylene Exchange - RIGHT Knee with NEPTALI Vacuum Assisted Dressing Application, post op day #0. 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 She then developed another infection, and underwent surgery as above this morning. She has significant weakness in her non-operative knee, and baseline mobility impairments. She will require extensive PT intervention to maximize mobility and safety, and will likely require SNF stay prior to returning home, unless she makes significant progress in upcoming days. She presents with the following impairment level findings: 1. decreased LE strength bilat 2. decreased activity tolerance 3. post-op precautions limiting R knee flexion to no >90* Impairments are contributing to the following functional limitations: 1. max A for bed mobility 2. unable to independently transfer 3. unable to ambulate Patient is assessed as Moderate [id number] complexity based on the following: History: As above. Complicated by current COVID-19 infection (asymptomatic) and afib Examination: as above Presentation: functional limitations as noted above Decision Making: moderate complexity Goals: Goals X1 week 1. Supine-Sit : supervision 2. Sit-Supine : supervision 3. Sit-Stand : min A 4. Stand-Sit : min A 5. Bed-Chair : supervision with FWW 6. Chair-Bed : supervision with FWW 7. Gait : supervision with FWW x 20' Plan of Care/Treatment Plan: 1-2x/day, 7 days/week x 1 week. Plan of care has been reviewed with the CLINICAL DIETETIC TECHNICIAN providing the service under Physical Therapy direction. Initiate Physical Therapy intervention for strengthening, bed mobility, transfers, gait, stairs, balance training, use of assistive device. DISCHARGE RECOMMENDATIONS: Home with HH PT vs SNF for continued rehabilitation TREATMENT CODE/TIME: 8632-2654 ([id number]) Narcisa De La Rosa, PT, DPT [facility] All Active Problems (Updated 11/04/23 @ 17:35 by Devon Ford) COVID-19 (Acute) Bacteremia (Acute) COVID-19 virus infection (Acute) Infection of prosthetic right knee joint (Acute) History of left knee replacement (Acute 04/27/23) History of total right knee replacement (Acute 03/08/23) Atrial fibrillation (Chronic) Type 2 diabetes mellitus (Acute) Hyperlipidemia (Acute) Acquired cystic kidney disease (Acute) She denies this Medical History Cardiac murmur Pt. stated she said it was nothing to worry about, just gave me blood thinners (Pt. has Afib) Urinary incontinence Umbilical hernia Severe obesity Gout Benign neoplasm of adrenal gland Surgical History H/O bilateral breast reduction surgery H/O tubal ligation History of appendectomy H/O abdominoplasty H/O: hysterectomy Hx of cholecystectomy H/O umbilical hernia repair History of colonoscopy date of procedure 11/29/18 History of esophagogastroduodenoscopy
--- NOTE | 2023-11-04 17:30 | NUR.NOTE ---
Nursing Note: Patient arrived to floor alert from PACU, orientated, denies pain at this time, ice pack in place, antibiotics running.
[2023-11-04] MEDS: Insulin Aspart 300 UNITS/3 ML PEN SC (18:14)
[2023-11-04] MEDS: oxyCODONE 5 MG TAB PO (20:40)
[2023-11-04] MEDS: Simvastatin 20 MG TAB PO (20:41)
[2023-11-04] MEDS: Protein Nutritional Supplement 16 GM 1 OUNCE PACKET PO (21:11)
[2023-11-04 23:38] LABS: Glucose 420 mg/dL (74-106)
[2023-11-04] MEDS: cefTRIAXone 2 GM/50 ML BAG IVPB (23:55)
[2023-11-05] MEDS: oxyCODONE 5 MG TAB PO ×3 (00:29→20:45)
[2023-11-05] MEDS: Insulin Aspart 300 UNITS/3 ML PEN SC ×7 (00:31→22:06)
[2023-11-05] MEDS: Insulin Glargine 300 UNITS/3 ML PEN 15 UNITS SC ×3 (00:32→20:46)
[2023-11-05] MEDS: Lactated Ringers 1,000 ML 80 ML IV ×2 (00:33→15:25)
[2023-11-05] MEDS: HYDROmorphone 2 MG/ML SYR 0.5 MG IVP ×2 (01:07→03:52)
[2023-11-05] MEDS: VANCOMYCIN/WATER (PEG) 1 GM/200 ML BAG IVPB (03:54)
[2023-11-05 03:56] VITALS: BP 104/61; PULSE 86; RESP 16; TEMP 36.7
[2023-11-05 07:22] LABS: HCT 27.6 % (36.0-46.0); HGB 8.6 g/dL (11.2-15.7); MCH 25.3 pg (27.0-33.0); MCHC 31.2 % (32.0-36.0); MCV 81 fL (80-95); MPV 9.6 fL (8.0-11.0); Platelet Count 367 10^3/uL (130-400); RDW 15.6 % (11.7-14.6); RDW-SD 46.2 fL; WBC 13.62 10^3/uL (4.4-10.8)
[2023-11-05 07:34] LABS: Anion Gap 10.3 mmol/L (3-11); BUN 32 mg/dL (7-18); C-Reactive Protein 8.27 mg/dL (<or=0.5); CO2 22.7 mmol/L (21.0-32.0); CREATININE 1.3 mg/dL (0.55-1.02); Calcium 8.9 mg/dL (8.5-10.1); Chloride 105 mmol/L (98-107); Estimated GFR 42.35 (mL/min/1.73m2); Glucose 229 mg/dL (74-106); Potassium 4.6 mmol/L (3.5-5.1); Sodium 138 mmol/L (136-145)
[2023-11-05] MEDS: Protein Nutritional Supplement 16 GM 1 OUNCE PACKET PO ×3 (08:24→20:46)
[2023-11-05] MEDS: Methocarbamol 750 MG TAB PO ×3 (08:25→20:44)
[2023-11-05] MEDS: Apixaban 5 MG TAB PO ×2 (08:25→20:44)
[2023-11-05] MEDS: Acetaminophen 500 MG TAB 1000 MG PO ×3 (08:25→20:43)
[2023-11-05 08:26] VITALS: BP 109/69; PULSE 90; RESP 15; TEMP 36.1; O2SAT 98
[2023-11-05] MEDS: Metoprolol 50 MG TAB 100 MG PO ×2 (08:26→20:44)
[2023-11-05] MEDS: Ascorbic Acid 500 MG TAB 1000 MG PO ×2 (08:26→20:45)
[2023-11-05] MEDS: Cholecalciferol (Vitamin D3) 1,000 UNIT TAB 2000 UNITS PO (08:26)
[2023-11-05] MEDS: metFORMIN 500 MG TAB PO (08:26)
[2023-11-05] MEDS: Torsemide 10 MG TAB PO (08:26)
[2023-11-05] MEDS: Lactobacillus Acidophilus CAP 1 CAP PO ×3 (08:26→17:07)
[2023-11-05] MEDS: Allopurinol 100 MG TAB PO (08:26)
[2023-11-05] MEDS: Pantoprazole 40 MG TABCR PO (08:27)
[2023-11-05] MEDS: Valsartan 80 MG TAB 320 MG PO (08:27)
[2023-11-05] MEDS: Zinc Sulfate 220 MG TAB PO (08:27)
[2023-11-05] MEDS: Normal Saline Flush 10 ML SYR IVP ×2 (08:27→22:07)
[2023-11-05] MEDS: Sennosides/Docusate Sodium TAB 1 TAB PO ×2 (09:44→20:45)
--- NOTE | 2023-11-05 10:18 | PTTR_ITS ---
PT Notes Visit Reasons: Periprosthetic Infection-Right Knee Inpatient Physical Therapy Treatment Note [facility] Date: 11/05/23 PRECAUTIONS:COVID+ and possible Staff Therapeutic Activities (67266h[3]): Direct one-on-one instruction in dynamic a ctivities to improve functional performance. ? BED MOBILITY/TRANSFERS? Supine-sit: MODx2? Sit-supine: MODx2 ? Sit-stand: CGAx2? Stand-sit: CGAx2 ? Provided skilled cues and instruction on performance and technique throughout. Gait Training (81005y[]): Direct one-on-one instruction and skilled instruction in: ? GAIT? Assistive Device: FWW? Weight bearing: WBAT R LE Assist: CGAx2 ? Distance:? Static standing to fatigue and side stepping to the L a couple of steps. ? Therapeutic Exercises (61463h[]): Direct one-on-one instruction in therapeutic exercises to develop strength, endurance, range of motion and flexibility. ? Exercises ? Heel slides B x 10 L LE SLR 2x5 PLAN: Cont as per PT POC. TREATMENT CODE/TIME: 9:25-10:15 (50) TAx3 DISCHARGE RECOMMENDATION: []
[2023-11-05 11:29] LABS: MRSA PCR Negative (Negative)
--- NOTE | 2023-11-05 11:36 | PGE_ITS ---
Date of Service Date of service: 11/05/23 Time of Service: 09:15 Assessment and Plan Assessment and plan (1) Type 2 diabetes mellitus: Status: Acute Assessment and plan: Persistently hyperglycemic but seemingly to improve with the start of Lantus and increase in aspart. Appreciate hospitalist consultation and their management for this complex problem. Glucose levels over 200 have been associated with increasing infection risk which is likely at least partially responsible for her most recent infection. Qualifiers: Diabetes mellitus terminal supervisor insulin use: without terminal supervisor use Diabetes mellitus complication status: with hyperglycemia Qualified Code(s): E11.65 - Type 2 diabetes mellitus with hyperglycemia (2) COVID-19: Status: Acute Assessment and plan: Asymptomatic from a respiratory standpoint. Continue with the protocol for management. No other acute inventions required. (3) Atrial fibrillation: Status: Chronic Assessment and plan: Rate control with metoprolol. She is on apixaban for clot risk from the atrial fibrillation. The effectiveness of the apixaban will be limited due to the use of rifampin but given no active clotting history of clotting disorder I think is a reasonable risk rather than switching to enoxaparin for the 3-month duration of rifampin. Qualifiers: Atrial fibrillation type: longstanding persistent Qualified Code(s): I48.11 - Longstanding persistent atrial fibrillation (4) Bacteremia: Status: Acute Assessment and plan: Single blood culture yesterday is negative so far. Repeat blood cultures this morning. Continue to follow. If negative throughout the day today would recommend PICC line placement for antibiotic administration. Continue with ceftriaxone and vancomycin. Gram-positive cocci growing in initial blood culture. Will narrow when sensitivities are available. (5) Infection of prosthetic right knee joint: Status: Acute Assessment and plan: Postop day #1 status post irrigation debridement, synovectomy, and polyethylene exchange. She seems to be doing okay this morning. The CRP is stable. Vitals are stable. Continue slow mobilization physical therapy. Will add on rifampin for likely Staph aureus infection and biofilm penetration. Continue with ceftriaxone and vancomycin until cultures have finalized. Subjective Subjective Interval history since last seen: Sylvia is overall doing okay. She reports pain which was improved with medications including the methocarbamol for muscle spasms. She is try to get out of bed with physical therapy. She denies chest pain or shortness of breath. She has been quite hyperglycemic following the procedure and did receive insulin glargine last night as well as insulin aspart. Hospitalist consult was completed yesterday. Vital signs have otherwise been stable. She has had abundant urine output with the Mercado catheter. Exam Narrative Exam Narrative: Sitting on the edge of the bed. No acute distress. Alert and oriented x 3. Evaluation of the right knee shows a clean dry and intact dressing. She has active ankle dorsiflexion and plantarflexion as well as great toe extension and flexion. Objective Last Vital Signs Temp 36.1 C L 11/05/23 08:26 Pulse 90 11/05/23 08:26 Resp 15 11/05/23 08:26 BP 109/69 11/05/23 08:26 Pulse Ox 98 11/05/23 08:26 Laboratory Results - last 24 hr 11/04/23 11/04/23 11/05/23 14:00 23:00 07:05 WBC 13.62 H RBC 3.40 L Hgb 8.6 L Hct 27.6 L MCV 81 MCH 25.3 L MCHC 31.2 L RDW 15.6 H Plt Count 367 MPV 9.6 ESR 67 H Sodium 140 138 Potassium 4.4 4.6 Chloride 106 105 Carbon Dioxide 27.2 22.7 Anion Gap 6.8 10.3 BUN 24 H 32 H Creatinine 1.0 1.3 H Est GFR (CKD-EPI 2020) 58.02 42.35 Glucose 172 H 420 H 229 H Hemoglobin A1c 9.4 H Calcium 9.2 8.9 Magnesium 1.9 Total Bilirubin 0.32 AST 11 L ALT 15 Alkaline Phosphatase 123 H C-Reactive Protein 8.55 H 8.27 H Total Protein 7.1 Albumin 2.0 L MRSA (TEM-PCR) ABO/Rh A Positive Antibody Screen NEGATIVE 11/05/23 11/05/23 08:20 09:45 WBC RBC Hgb Hct MCV MCH MCHC RDW Plt Count MPV ESR Sodium Potassium Chloride Carbon Dioxide Anion Gap BUN Creatinine Est GFR (CKD-EPI 2020) Glucose Hemoglobin A1c Calcium Magnesium Total Bilirubin AST ALT Alkaline Phosphatase C-Reactive Protein Total Protein Albumin MRSA (TEM-PCR) Cancelled Negative ABO/Rh Antibody Screen Time Spent with Patient Time Spent with Patient: 25-34 minutes Time was spent: preparing to see the patient(eg.review tests), obtaining and/or reviewing separately otained hiistory, ordering medications,tests, procedures, referring, communicating with other health career resource specialist, indepentently interpreting results and counseling the patient
[2023-11-05 12:46] LABS: Vancomycin, Random 27.9 ug/mL
--- NOTE | 2023-11-05 13:20 | NUR.NOTE ---
Nursing Note: Nursing staff requested pt have family bring in her ozempic. Pt called son to have daughter bring it in later this afternoon.
[2023-11-05 15:23] VITALS: BP 114/66; PULSE 88; RESP 16; TEMP 36.5; O2SAT 97
[2023-11-05] MEDS: VANCOMYCIN/WATER (PEG) 1.25 GM/250 ML BAG IVPB (15:24)
--- NOTE | 2023-11-05 15:56 | NUR.NOTE ---
Nursing Note: pt appeared to be in pain, when asked pt stated she was a 6/10 knee pain. Pt was offered narcotics, pt denied. pt was offered muscle relaxer, pt accepted.
--- NOTE | 2023-11-05 16:40 | PGE_ITS ---
Date of Service Date of service: 11/05/23 Time of Service: 16:40 Assessment and Plan Assessment and plan (1) Type 2 diabetes mellitus: Status: Acute Assessment and plan: Elevated A1c of 9.4% reflects a recent average glucose in the low 200s. She was hyperglycemic >400 overnight after she started eating. I agree with continuing the metformin, can make BID, watch renal fucntion. I think it is safe to restart her GLP-1, whenever she can get it from home. I added AM dose of glargine this morning, will get total 30 units today. We can consolidate this into a single dose once fasting glucose is at goal 80-150. I added 5 units scheduled aspart with moderate sliding scale, looks like it is holding her post parandial (or at least the pre-lunch we get here) better. Will titrate again, goal is <200. Dr. Willett added fructosamine which will give us a better sense for her more recent blood sugars over the past couple weeks. Qualifiers: Diabetes mellitus complication status: with hyperglycemia Diabetes mellitus fdc insulin use: without termite exterminator use Qualified Code(s): E11.65 - Type 2 diabetes mellitus with hyperglycemia (2) COVID-19: Status: Acute Assessment and plan: She is still not symptomatic, so I would not recommend IV or oral therapy at this point. Monitor for symptoms. (3) Atrial fibrillation: Status: Chronic Assessment and plan: She is on apixaban and metoprolol chronically, continue Apixaban covers DVT prophylaxis Qualifiers: Atrial fibrillation type: longstanding persistent Qualified Code(s): I48.11 - Longstanding persistent atrial fibrillation (4) Bacteremia: Status: Acute Assessment and plan: On ceftriaxone, vancomycin, and rifampin with cultures pending, growing GPC. Narrow when we get further culture results. Fortunately she does not look clini nir toxic or septic. (5) Infection of prosthetic right knee joint: Status: Acute Assessment and plan: POD #1 s/p irrigation and debridement, synovectomy, and polyethylene exchange of her right knee. Management per orthopedics. PT seeing patient. (6) Hypertension: Status: Chronic Assessment and plan: She is on her outpatient regimen of valsartan as well as torsemide. She does not have a history of CHF, takes torsemide for edema. BUN/Cr up slightly today, hold this in AM. Lytes and BP are good now, monitor. Qualifiers: Hypertension type: primary hypertension Qualified Code(s): I10 - Essential (primary) hypertension Subjective Subjective Patient reports: tolerating a regular diet and flatus; denies bowel movement, nausea, shortness of breath or fever Interval history since last seen: POD #1 Having some spasms of pain around the knee, given muscle relaxor that helped some. Seen by PT but not mobilizing well yet. No new URI/respiratory symptoms. She confirms she takes the torsemide for leg swelling, not heart issus. Exam Narrative Exam Narrative: GEN: Alert and oriented, no acute distress at rest. HEENT: No rhinorrhea. LUNGS: CTAB with normal effort CV: irregularly irregular, I do not appreciate a murmur (with COVID stethoscope), no gallops, or rubs. ABD: active bowel sounds, soft, nontender and nondistended. No masses. EXT: no cyanosis, clubbing, or edema, cap refill in toes <2 seconds bilaterally, right leg in brace/wrapped. No other joint redness/swelling. Objective Last Vital Signs Temp 36.5 C 11/05/23 15:23 Pulse 88 11/05/23 15:23 Resp 16 11/05/23 15:23 BP 114/66 11/05/23 15:23 Pulse Ox 97 11/05/23 15:23 Laboratory Results - last 24 hr 11/04/23 11/05/23 11/05/23 23:00 07:05 08:20 WBC 13.62 H RBC 3.40 L Hgb 8.6 L Hct 27.6 L MCV 81 MCH 25.3 L MCHC 31.2 L RDW 15.6 H Plt Count 367 MPV 9.6 Sodium 138 Potassium 4.6 Chloride 105 Carbon Dioxide 22.7 Anion Gap 10.3 BUN 32 H Creatinine 1.3 H Est GFR (CKD-EPI 2020) 42.35 Glucose 420 H 229 H Calcium 8.9 C-Reactive Protein 8.27 H Random Vancomycin MRSA (TEM-PCR) Cancelled 11/05/23 11/05/23 09:45 12:05 WBC RBC Hgb Hct MCV MCH MCHC RDW Plt Count MPV Sodium Potassium Chloride Carbon Dioxide Anion Gap BUN Creatinine Est GFR (CKD-EPI 2020) Glucose Calcium C-Reactive Protein Random Vancomycin 27.9 MRSA (TEM-PCR) Negative Time Spent with Patient Time Spent with Patient: 35-49 minutes Time was spent: preparing to see the patient(eg.review tests), obtaining and/or reviewing separately otained hiistory, ordering medications,tests, procedures, referring, communicating with other health patient centered care specialist, indepentently interpreting results and counseling the patient
[2023-11-05 20:37] VITALS: BP 112/63; PULSE 82; RESP 22; TEMP 36.9; O2SAT 96
[2023-11-05] MEDS: rifAMPin 300 MG CAP PO (20:44)
[2023-11-05] MEDS: Simvastatin 20 MG TAB PO (20:45)
[2023-11-05] MEDS: cefTRIAXone 2 GM/50 ML BAG IVPB (22:05)
[2023-11-05 23:55] VITALS: BP 110/67; PULSE 89; RESP 20; TEMP 36.8; O2SAT 95
[2023-11-06 02:53] VITALS: BP 112/74; PULSE 90; RESP 20; TEMP 36.5; O2SAT 95
[2023-11-06] MEDS: Methocarbamol 750 MG TAB PO ×2 (05:10→20:36)
[2023-11-06] MEDS: Lactated Ringers 1,000 ML 80 ML IV (06:34)
[2023-11-06 06:54] LABS: HCT 29.3 % (36.0-46.0); HGB 9.2 g/dL (11.2-15.7); MCH 25.5 pg (27.0-33.0); MCHC 31.4 % (32.0-36.0); MCV 81 fL (80-95); MPV 9.3 fL (8.0-11.0); Platelet Count 455 10^3/uL (130-400); RBC 3.61 10^6/uL (3.93-5.22); RDW 15.7 % (11.7-14.6); RDW-SD 46.9 fL; WBC 14.36 10^3/uL (4.4-10.8)
[2023-11-06 07:15] LABS: Anion Gap 9.1 mmol/L (3-11); BUN 33 mg/dL (7-18); C-Reactive Protein 6.28 mg/dL (<or=0.5); CO2 24.9 mmol/L (21.0-32.0); CREATININE 1.2 mg/dL (0.55-1.02); Calcium 8.9 mg/dL (8.5-10.1); Chloride 106 mmol/L (98-107); Estimated GFR 46.62 (mL/min/1.73m2); Glucose 110 mg/dL (74-106); Potassium 3.9 mmol/L (3.5-5.1); Sodium 140 mmol/L (136-145)
[2023-11-06 08:05] VITALS: BP 115/88; PULSE 107; RESP 16; TEMP 36.6; O2SAT 95
[2023-11-06] MEDS: Insulin Glargine 300 UNITS/3 ML PEN 15 UNITS SC (08:09)
[2023-11-06] MEDS: Insulin Aspart 300 UNITS/3 ML PEN SC ×6 (08:10→20:44)
[2023-11-06] MEDS: Cholecalciferol (Vitamin D3) 1,000 UNIT TAB 2000 UNITS PO (08:16)
[2023-11-06] MEDS: rifAMPin 300 MG CAP PO ×2 (08:16→20:36)
[2023-11-06] MEDS: metFORMIN 500 MG TAB PO (08:16)
[2023-11-06] MEDS: Torsemide 10 MG TAB PO (08:16)
[2023-11-06] MEDS: Ascorbic Acid 500 MG TAB 1000 MG PO ×2 (08:17→20:35)
[2023-11-06] MEDS: Pantoprazole 40 MG TABCR PO (08:17)
[2023-11-06] MEDS: Valsartan 80 MG TAB 320 MG PO (08:17)
[2023-11-06] MEDS: Sennosides/Docusate Sodium TAB 1 TAB PO ×2 (08:17→20:37)
[2023-11-06] MEDS: Allopurinol 100 MG TAB PO (08:17)
[2023-11-06] MEDS: Lactobacillus Acidophilus CAP 1 CAP PO ×3 (08:17→17:00)
[2023-11-06] MEDS: Apixaban 5 MG TAB PO ×2 (08:17→20:35)
[2023-11-06] MEDS: Acetaminophen 500 MG TAB 1000 MG PO ×3 (08:17→20:34)
[2023-11-06] MEDS: Zinc Sulfate 220 MG TAB PO (08:18)
[2023-11-06] MEDS: Protein Nutritional Supplement 16 GM 1 OUNCE PACKET PO ×2 (08:18→20:37)
[2023-11-06] MEDS: Metoprolol 50 MG TAB 100 MG PO ×2 (08:18→20:34)
[2023-11-06] MEDS: oxyCODONE 5 MG TAB PO ×2 (08:30→15:02)
[2023-11-06 09:22] LABS: Fructosamine 263 mcmol/L (200 - 285)
--- NOTE | 2023-11-06 10:33 | W.PM.PROGNOT ---
Date of Service Date of service: 11/06/23 Time of Service: 10:33 Assessment and Plan Assessment and plan (1) Type 2 diabetes mellitus: Status: Acute Assessment and plan: Elevated A1c of 9.4% reflects a recent average glucose in the low 200s. She was hyperglycemic >400 overnight the first night after she started eating, but good control yesterday and at goal this morning after getting 30 units glargine and 5+ moderate sliding scale aspart and 500mg BID of metformin. I agree with continuing the metformin, now BID, watching renal fucntion. I think it is safe to restart her GLP-1, whenever she can get it from home. She states she last took it 2-3 weeks ago. I think safe to resume even at the 2mg dosing. However on this medication she will need less insulin so I will cut back down on glargine to just [address] Willett added fructosamine which will give us a better sense for her more recent blood sugars over the past couple weeks, still pending Qualifiers: Diabetes mellitus marine oil terminal superintendent insulin use: without marine oil terminal superintendent use Diabetes mellitus complication status: with hyperglycemia Qualified Code(s): E11.65 - Type 2 diabetes mellitus with hyperglycemia (2) COVID-19: Status: Acute Assessment and plan: She is still not symptomatic, so I would not recommend IV or oral therapy at this point. Monitor for symptoms, still none so far. (3) Atrial fibrillation: Status: Chronic Assessment and plan: She is on apixaban and metoprolol chronically, continue This is a chronic issue, I don't see need for ongoing telemetry monitoring. Apixaban covers DVT prophylaxis Qualifiers: Atrial fibrillation type: longstanding persistent Qualified Code(s): I48.11 - Longstanding persistent atrial fibrillation (4) Bacteremia: Status: Acute Assessment and plan: On ceftriaxone, vancomycin, and rifampin with cultures pending, growing Staph Aureus. Narrow when we get sensitivities in discussion with orthopedics. Fortunately she does not look clinically toxic or septic. (5) Infection of prosthetic right knee joint: Status: Acute Assessment and plan: POD #2 s/p irrigation and debridement, synovectomy, and polyethylene exchange of her right knee. Management per orthopedics. PT seeing patient, I encouraged her to do her best to move. (6) Hypertension: Status: Chronic Assessment and plan: She is on her outpatient regimen of valsartan as well as torsemide. She does not have a history of CHF, takes torsemide for edema. BUN/Cr up slightly the last 2 days, hold for now. We can stop fluids. Lytes and BP are good, continue to monitor. Qualifiers: Hypertension type: primary hypertension Qualified Code(s): I10 - Essential (primary) hypertension Subjective Subjective Patient reports: no new complaints, tolerating a regular diet and flatus; denies bowel movement, nausea, vomiting, shortness of breath or fever Interval history since last seen: Knee still hurts. Hasn't been up much though she is working with PT. Still not cough or URI symptoms. No chest pain or palpitations. She is drinking fluids well. Exam Narrative Exam Narrative: GEN: Alert and oriented, no acute distress at rest. HEENT: No rhinorrhea. OP benign. LUNGS: CTAB with normal effort CV: irregularly irregular, subtle 1/6 systolic murmur RUSB no radiation, no gallops, or rubs. ABD: active bowel sounds, soft, nontender and nondistended. No masses. EXT: no cyanosis, clubbing, or edema, cap refill in toes <2 seconds bilaterally, right leg wrapped/dressed. No other joint redness/swelling. Objective Last Vital Signs Temp 36.6 C 11/06/23 08:05 Pulse 107 H 11/06/23 08:05 Resp 16 11/06/23 08:05 BP 115/88 11/06/23 08:05 Pulse Ox 95 11/06/23 08:05 Laboratory Results - last 24 hr 11/05/23 11/05/23 11/06/23 09:45 12:05 06:35 WBC 14.36 H RBC 3.61 L Hgb 9.2 L Hct 29.3 L MCV 81 MCH 25.5 L MCHC 31.4 L RDW 15.7 H Plt Count 455 H MPV 9.3 Sodium 140 Potassium 3.9 Chloride 106 Carbon Dioxide 24.9 Anion Gap 9.1 BUN 33 H Creatinine 1.2 H Est GFR (CKD-EPI 2020) 46.62 Glucose 110 H Calcium 8.9 C-Reactive Protein 6.28 H Random Vancomycin 27.9 MRSA (TEM-PCR) Negative Time Spent with Patient Time Spent with Patient: 35-49 minutes Time was spent: preparing to see the patient(eg.review tests), obtaining and/or reviewing separately otained hiistory, ordering medications,tests, procedures, referring, communicating with other health point of care technician, indepentently interpreting results and counseling the patient
--- NOTE | 2023-11-06 11:04 | PTTR_ITS ---
PT Notes Visit Reasons: Periprosthetic Infection-Right Knee Inpatient Physical Therapy Treatment Note [facility] Date: 11/06/23 PRECAUTIONS:COVID+ and possible staff infection. No knee flexion past 90 degrees and no SLR SUBJECTIVE: Pt reports not doing the best today. OBJECTIVE: Therapeutic Activities (13711q[3]): Direct one-on-one instruction in dynamic activities to improve functional performance. ? BED MOBILITY/TRANSFERS? Supine-sit: Modx1? Sit-supine: Min x 1 ? Sit-stand: CGA/min assistx2? Stand-sit: CGA ? Provided skilled cues and instruction on performance and technique throughout. Gait Training (07888q[]): Direct one-on-one instruction and skilled inst ruction in: ? GAIT? Assistive Device: FWW? Weight bearing: WBAT Assist: ?CGA ? Distance:? Static standing and side stepping 4 steps ? Therapeutic Exercises (03566i[]): Direct one-on-one instruction in therapeutic exercises to develop strength, endurance, range of motion and flexibility. ? Exercises ? SLR L x 10 Heel slides x 10 B ? ASSESSMENT:? Pt was not able to tolerate any ambulation again today. Transfers and standing seem to be very fatiguing and still challenging for her. PLAN: Cont as per PT POC. TREATMENT CODE/TIME: 10:20-11 ( 40) TAx3 DISCHARGE RECOMMENDATION: []
[2023-11-06 11:43] VITALS: BP 118/74; PULSE 85; RESP 16; TEMP 36.4; O2SAT 95
[2023-11-06] MEDS: VANCOMYCIN/WATER (PEG) 1.25 GM/250 ML BAG IVPB (15:03)
[2023-11-06 15:14] VITALS: BP 109/57; PULSE 100; RESP 16; TEMP 36.7; O2SAT 94
[2023-11-06 15:25] LABS: Vancomycin, Trough 25.5 ug/mL (10.0-20.0)
--- NOTE | 2023-11-06 20:25 | W.PM.PROGNOT ---
Date of Service Date of service: 11/06/23 Time of Service: 10:05 Assessment and Plan Assessment and plan (1) Type 2 diabetes mellitus: Status: Acute Assessment and plan: Doing much better in regards to her glucose control. Appreciate hospitalist consultation and their management for this complex problem. Glucose levels over 200 have been associated with increasing infection risk which is likely at least partially responsible for her most recent infection and thus important to limit. Her most recent 24 hours of glucose is much improved. Qualifiers: Diabetes mellitus extermination inspector insulin use: without [facility] use Diabetes mellitus complication status: with hyperglycemia Qualified Code(s): E11.65 - Type 2 diabetes mellitus with hyperglycemia (2) COVID-19: Status: Acute Assessment and plan: Asymptomatic from a respiratory standpoint. Continue with the protocol for management. No other acute inventions required. (3) Atrial fibrillation: Status: Chronic Assessment and plan: Rate control with metoprolol. She is on apixaban for clot risk from the atrial fibrillation. The effectiveness of the apixaban will be limited due to the use of rifampin but given no active clotting history of clotting disorder I think is a reasonable risk rather than switching to enoxaparin for the 3-month duration of rifampin. Qualifiers: Atrial fibrillation type: longstanding persistent Qualified Code(s): I48.11 - Longstanding persistent atrial fibrillation (4) Bacteremia: Status: Acute Assessment and plan: Single blood culture yesterday is negative so far. Repeat blood cultures have no growth to date. Continue to follow. Gram-positive cocci was growing in the initial blood cultures at [facility]. Continue ceftriaxone vancomycin. Since negative blood cultures now we may move forward with PICC line placement. (5) Infection of prosthetic right knee joint: Status: Acute Assessment and plan: Postop day #2 status post irrigation debridement, synovectomy, and polyethylene exchange. No acute complications. The CRP is starting to trend downward. Vitals are stable. Continue slow mobilization physical therapy. Cultures are now growing Staph aureus, awaiting sensitivities. Will add on rifampin for Staph aureus infection and biofilm penetration. Continue with ceftriaxone and vancomycin along with rifampin until cultures have finalized. Subjective Subjective Interval history since last seen: Sylvia denies any acute changes. She has had pain with good control of medications. She has been able to mobilize with nursing and physical therapy although of limitations. She denies fevers or chills. She denies chest pain or shortness of breath. Her sugars been much better controlled with the added insulin. Her vitals been stable. Exam Narrative Exam Narrative: Sitting up in the bed. No acute distress. Right lower extremity Kaden wrap is removed. There is some swelling proximal to the knee but very minimal distal. Intact palpable PT and DP pulses. She has intact ankle dorsiflexion, plantarflexion, great toe extension, great toe flexion. She is able to demonstrate some knee extension with raising heel off the bed. Objective Last Vital Signs Temp 36.7 C 11/06/23 15:14 Pulse 100 H 11/06/23 15:14 Resp 16 11/06/23 15:14 BP 109/57 L 11/06/23 15:14 Pulse Ox 94 11/06/23 15:14 Laboratory Results - last 24 hr 11/06/23 11/06/23 06:35 14:59 WBC 14.36 H RBC 3.61 L Hgb 9.2 L Hct 29.3 L MCV 81 MCH 25.5 L MCHC 31.4 L RDW 15.7 H Plt Count 455 H MPV 9.3 Sodium 140 Potassium 3.9 Chloride 106 Carbon Dioxide 24.9 Anion Gap 9.1 BUN 33 H Creatinine 1.2 H Est GFR (CKD-EPI 2020) 46.62 Glucose 110 H Calcium 8.9 C-Reactive Protein 6.28 H Vancomycin Trough 25.5 H* Time Spent with Patient Time Spent with Patient: 25-34 minutes Time was spent: preparing to see the patient(eg.review tests), obtaining and/or reviewing separately otained hiistory, ordering medications,tests, procedures, indepentently interpreting results and counseling the patient
[2023-11-06 20:30] VITALS: BP 118/65; PULSE 98; RESP 16; TEMP 36; O2SAT 96
[2023-11-06] MEDS: Simvastatin 20 MG TAB PO (20:35)
[2023-11-06] MEDS: cefTRIAXone 2 GM/50 ML BAG IVPB (22:57)
[2023-11-06 23:24] VITALS: BP 109/58; PULSE 107; RESP 16; TEMP 36.3; O2SAT 95
[2023-11-07] MEDS: oxyCODONE 5 MG TAB PO (03:17)
[2023-11-07] MEDS: Methocarbamol 750 MG TAB PO ×2 (03:19→08:26)
[2023-11-07 03:23] VITALS: BP 111/64; PULSE 90; RESP 16; TEMP 36.3; O2SAT 95
[2023-11-07] MEDS: Protein Nutritional Supplement 16 GM 1 OUNCE PACKET PO ×3 (08:22→21:54)
[2023-11-07] MEDS: metFORMIN 500 MG TAB PO (08:22)
[2023-11-07] MEDS: Sennosides/Docusate Sodium TAB 1 TAB PO (08:23)
[2023-11-07] MEDS: Lactobacillus Acidophilus CAP 1 CAP PO ×3 (08:23→17:03)
[2023-11-07] MEDS: Apixaban 5 MG TAB PO ×2 (08:23→21:52)
[2023-11-07] MEDS: Zinc Sulfate 220 MG TAB PO (08:23)
[2023-11-07] MEDS: Allopurinol 100 MG TAB PO (08:24)
[2023-11-07] MEDS: Pantoprazole 40 MG TABCR PO (08:24)
[2023-11-07] MEDS: Cholecalciferol (Vitamin D3) 1,000 UNIT TAB 2000 UNITS PO (08:24)
[2023-11-07] MEDS: Metoprolol 50 MG TAB 100 MG PO ×2 (08:24→21:51)
[2023-11-07] MEDS: Ascorbic Acid 500 MG TAB 1000 MG PO ×2 (08:24→21:54)
[2023-11-07] MEDS: rifAMPin 300 MG CAP PO ×2 (08:24→21:52)
[2023-11-07] MEDS: Acetaminophen 500 MG TAB 1000 MG PO ×3 (08:24→21:50)
[2023-11-07] MEDS: Valsartan 80 MG TAB 320 MG PO (08:25)
[2023-11-07] MEDS: Insulin Glargine 300 UNITS/3 ML PEN 20 UNITS SC (08:25)
[2023-11-07] MEDS: Insulin Aspart 300 UNITS/3 ML PEN SC ×5 (08:26→22:18)
[2023-11-07] MEDS: Normal Saline Flush 10 ML SYR IVP ×2 (08:35→17:03)
[2023-11-07 08:57] LABS: HGB 10.3 g/dL (11.2-15.7); MCH 25.5 pg (27.0-33.0); MCHC 31.2 % (32.0-36.0); MCV 82 fL (80-95); MPV 9.5 fL (8.0-11.0); Platelet Count 430 10^3/uL (130-400); RBC 4.04 10^6/uL (3.93-5.22); RDW 15.9 % (11.7-14.6); RDW-SD 47.1 fL; WBC 13.04 10^3/uL (4.4-10.8)
[2023-11-07 09:14] LABS: Anion Gap 9.5 mmol/L (3-11); BUN 31 mg/dL (7-18); CO2 25.5 mmol/L (21.0-32.0); CREATININE 1.1 mg/dL (0.55-1.02); Calcium 9.3 mg/dL (8.5-10.1); Chloride 106 mmol/L (98-107); Estimated GFR 51.75 (mL/min/1.73m2); Glucose 110 mg/dL (74-106); Potassium 4.5 mmol/L (3.5-5.1); Sodium 141 mmol/L (136-145); Vancomycin, Random 24.9 ug/mL
[2023-11-07 09:30] VITALS: BP 92/55; PULSE 90; RESP 18; TEMP 37.2; O2SAT 96
--- NOTE | 2023-11-07 10:23 | PT.INTREAT ---
PT Notes Visit Reasons: Periprosthetic Infection-Right Knee Inpatient Physical Therapy Treatment Note [facility] Date: 11/07/23 PRECAUTIONS:fall, standard, no right knee flexion > 90* SUBJECTIVE: Sylvia states that she remains uncomfortable. OBJECTIVE: ? BED MOBILITY/TRANSFERS? Supine-sit: mod A x 1? Sit-supine: mod A x 2 ? Sit-stand: mod A x 2, max cues for safety and hand placement? Stand-sit: CGA x 2 ? Bed-Chair: unable ? Therapeutic Exercises (14100q2): Direct one-on-one instruction in therapeutic exercises to develop strength, endurance, range of motion and flexibility. ? Instructed in the following exercises. ? Provided skilled instruction in proper exercise performance Provided skilled manual cues to facilitate proper muscle recruitment and/or form: quad sets 10x2 RLE heel slides supine 10x AROM supine shoulder flexion 10x2 with significant HESS. heel slides sitting 5x AROM (60-80* range) ankle pumps 10x2 SLR 10x on left (non-operative) leg attempted SAQ on right, although unable to tolerate due to pain. Discontinued. sit-stand, requires multiple attempts and bed elevated, mod A x 2 standing right hip flexion 5x with bilat UE support to FWW standing weight shifts to right leg 5x 5 seconds each Ambulation: unable? ASSESSMENT:? Mobilizing very slowly. Sit to stand only possible from elevated bed, making transfer to chair challenging. PLAN: Continue PT intervention to maximize strength and activity tolerance allowing for improved tolerance to transfer and ambulation. TREATMENT CODE/TIME: 2588-0725 DISCHARGE RECOMMENDATION: Will likely require SNF for continued strengthening prior to return home.
--- NOTE | 2023-11-07 11:41 | NUR.NOTE ---
Nursing Note: PICC being placed for IV vanco today
[2023-11-07 12:04] VITALS: BP 109/71; PULSE 91; RESP 19; TEMP 36.4; O2SAT 97
--- NOTE | 2023-11-07 12:58 | PGE_ITS ---
Date of Service Date of service: 11/07/23 Time of Service: 12:30 Assessment and Plan Assessment and plan (1) Type 2 diabetes mellitus: Status: Acute Assessment and plan: Doing much better in regards to her glucose control. Appreciate hospitalist consultation and their management for this complex problem. Qualifiers: Diabetes mellitus bed bug exterminator insulin use: without correction use Diabetes mellitus complication status: with hyperglycemia Qualified Code(s): E11.65 - Type 2 diabetes mellitus with hyperglycemia (2) COVID-19: Status: Acute Assessment and plan: Asymptomatic from a respiratory standpoint. Continue with the protocol for management. No other acute inventions required. Retest to hopefully end precautions. (3) Atrial fibrillation: Status: Chronic Assessment and plan: Rate control with metoprolol. She is on apixaban for clot risk from the atrial fibrillation. The effectiveness of the apixaban will be limited due to the use of rifampin but given no active clotting history of clotting disorder I think is a reasonable risk rather than switching to enoxaparin for the 3-month duration of rifampin. Qualifiers: Atrial fibrillation type: longstanding persistent Qualified Code(s): I48.11 - Longstanding persistent atrial fibrillation (4) Bacteremia: Status: Acute Assessment and plan: Single blood culture yesterday is negative so far. Repeat blood cultures have no growth to date. Continue to follow. Gram-positive cocci was growing in the initial blood cultures at [facility]. PICC line placement today. (5) Infection of prosthetic right knee joint: Status: Acute Assessment and plan: Postop day #3 status post irrigation debridement, synovectomy, and polyethylene exchange. No acute complications. Vitals are stable. Continue slow mobilization physical therapy with minimal active flexion and no loaded flexion. May use knee immobilizer to help support the knee. Cultures are now growing MSSA, Will add on rifampin for Staph aureus infection and biofilm penetration and D/C Vancomycin. Subjective Subjective Interval history since last seen: No acute changes. Increased anterior right knee pain. No chest pain or SOB. Glucose levels continue to be improved. MSSA growing in cultures. Exam Narrative Exam Narrative: Resting in the bed. NAD. AAOx3. RLE dressing c/d/i, vacuum suction active. Able to demonstrate quad activation but very weak. NOtable swelling. Difficult to access medial retinaculum. No significant distal edema. Objective Last Vital Signs Temp 36.4 C L 07/22/24 12:04 Pulse 91 H 11/07/23 12:04 Resp 19 11/07/23 12:04 BP 109/71 11/07/23 12:04 Pulse Ox 97 11/07/23 12:04 Laboratory Results - last 24 hr 11/04/23 11/06/23 11/07/23 14:00 14:59 08:15 WBC 13.04 H RBC 4.04 Hgb 10.3 L Hct 33.0 L MCV 82 MCH 25.5 L MCHC 31.2 L RDW 15.9 H Plt Count 430 H MPV 9.5 Sodium 141 Potassium 4.5 Chloride 106 Carbon Dioxide 25.5 Anion Gap 9.5 BUN 31 H Creatinine 1.1 H Est GFR (CKD-EPI 2020) 51.75 Glucose 110 H Fructosamine 263 Calcium 9.3 C-Reactive Protein 7.20 H Vancomycin Trough 25.5 H* Random Vancomycin 24.9 Time Spent with Patient Time Spent with Patient: 25-34 minutes Time was spent: preparing to see the patient(eg.review tests), obtaining and/or reviewing separately otained hiistory, referring, communicating with other health health care specialist, indepentently interpreting results and counseling the patient
--- NOTE | 2023-11-07 13:15 | DI.RAD_ITS ---
Exam(s) XR PORTABLE CHEST AP POST LINE EXAM: XR PORTABLE CHEST AP POST LINE CLINICAL HISTORY: PICC line. TECHNIQUE: 2D digital imaging was performed. COMPARISON: No exams were available for comparison FINDINGS: Single AP portable view. Patient is rotated towards the right Distal tip of the right PICC line is in the upper-mid SVC. Heart size is upper normal. The mediastinum is not widened. Lungs are clear. No infiltrates nor obvious pleural effusions. IMPRESSION: No acute pulmonary findings on this single AP portable view of the chest. Distal tip of PICC line is in the upper-mid SVC. DATA REPOSITORY: RADIATION DOSE DELIVERED:
[2023-11-07 14:11] LABS: Source Nasal/Nares
[2023-11-07 14:42] LABS: COVID-19 PCR Negative (Negative)
--- NOTE | 2023-11-07 14:58 | PDOC.CMPRO ---
Date of service: 11/07/23 Time of Service: 14:59 Care Management Progress Note Progress Note Text Progress Note Text: CM spoke with Sylvia via her room intercom due to her being on Covid precautions. She agrees to PT's recommendation of SNF for STR, if needed and referrals are sent to the [facility] and [facility]. CM will continue to follow. Discharge Anticipated Barriers to Discharge: None Identified Patient/Family Education Needs: Review discharge instructions, discuss Ask Me Three Transportation: Facility Transport Plan: Per CCRN, patient tested negative for covid today. Per PT, ySlvia will likely require SNF for STR prior to discharging home, referral's are being sent to the [facility] and [facility]. She will follow up with her orthopedic surgeon and plan of care as recommended. CM will follow and continue to assess for discharge planning concerns. SDOH(Care Management) Screening Will the Patient Participate in the Screening?: Declined to provide
--- NOTE | 2023-11-07 15:14 | PT.INTREAT ---
PT Notes Visit Reasons: Periprosthetic Infection-Right Knee Inpatient Physical Therapy Treatment Note [facility] Date: 11/07/23 PRECAUTIONS:fall, standard, no right knee flexion > 90*, minimal active flexion, no loaded flexion SUBJECTIVE: Sylvia is agreeable to PT. Nursing present for treatment session. OBJECTIVE: ? Therapeutic Activities (72437h1): ? BED MOBILITY/TRANSFERS? Supine-sit: mod A x 1? Sit-supine: mod A x 1? Sit-stand: mod A x 2, max cues for safety and hand placement, bed elevated. Utilized knee immobilizer during transfer. Performed 2 reps, each requiring mulitple attempts. ? Stand-sit: CGA x 2 ? Bed-Chair: unable. Attempted forward steps, although unable to perform. Static standing x 2 minutes, 2 reps, FWW and CGA-min A. Cues for weight shift to RLE, which she maintains in externally rotated position. During session, patient has loss of urinary continence, requiring max A x 2 for self-care. Able to stand throughout, although with need for CGA-min A. ? Therapeutic Exercises (20321o8): Direct one-on-one instruction in therapeutic exercises to develop strength, endurance, range of motion and flexibility. ? Instructed in the following exercises. ? Provided skilled instruction in proper exercise performance Provided skilled manual cues to facilitate proper muscle recruitment and/or form: quad sets 10x1 RLE SLR right: 10x supine, 75% assist; 10x seated, independently through limited range with knee immobilizer in place? ASSESSMENT:? Mobilizing very slowly. Sit to stand only possible from elevated bed, making transfer to chair challenging. Able to tolerate static standing to FWW and addition of assisted SLR. PLAN: Continue PT intervention to maximize strength and activity tolerance allowing for improved tolerance to transfer and ambulation. TREATMENT CODE/TIME: 0998-7100 DISCHARGE RECOMMENDATION: Will likely require SNF for continued strengthening prior to return home.
--- NOTE | 2023-11-07 19:14 | W.PM.PROGNOT ---
Date of Service Date of service: 11/07/23 Time of Service: 19:15 Assessment and Plan Assessment and plan (1) Type 2 diabetes mellitus: Status: Acute Assessment and plan: Elevated A1c of 9.4% reflects a recent average glucose in the low 200s. She was hyperglycemic >400 overnight the first night after she started eating, but good control for the past 2 days. Now on 20 units glargine and 5+ moderate sliding scale aspart, ozempic 2mg weekly, and 500mg BID of metformin. I would send her home on this regimen, stop glargine if fasting glucose gets <80. She is willing to use insulin. RN teaching to give herself pen before she goes. She will also need needles. Qualifiers: Diabetes mellitus group home insulin use: without tank terminal gauger use Diabetes mellitus complication status: with hyperglycemia Qualified Code(s): E11.65 - Type 2 diabetes mellitus with hyperglycemia (2) COVID-19: Status: Acute Assessment and plan: She is still not symptomatic, repeat PCR negative, can stop precautions. (3) Atrial fibrillation: Status: Chronic Assessment and plan: She is on apixaban and metoprolol chronically, continue. Apixaban covers DVT prophylaxis Qualifiers: Atrial fibrillation type: longstanding persistent Qualified Code(s): I48.11 - Longstanding persistent atrial fibrillation (4) Bacteremia: Status: Acute Assessment and plan: MSSA, stopped vanco, on ceftriaxone and rifampin. Fortunately she does not look clinically toxic or septic. Discharge antibiotics per Dr. Willett. (5) Infection of prosthetic right knee joint: Status: Acute Assessment and plan: POD #3 s/p irrigation and debridement, synovectomy, and polyethylene exchange of her right knee. Management per orthopedics. PT seeing patient, I encouraged her to do her best to move. (6) Hypertension: Status: Chronic Assessment and plan: She is on her outpatient regimen of valsartan as well as torsemide. She does not have a history of CHF, takes torsemide for edema. BUN/Cr up slightly the last 2 days, holding for now. Off fluids 11/05. Lytes and BP are good, continue to monitor. Can resume torsemide prn swelling upon discharge. Qualifiers: Hypertension type: primary hypertension Qualified Code(s): I10 - Essential (primary) hypertension Subjective Subjective Patient reports: no new complaints; denies diarrhea, nausea, vomiting, shortness of breath or fever Interval history since last seen: Still pain in knee but doing a little better. Eating and drinking. No respiratory symptoms. No adverse reaction to ozempic. Exam Narrative Exam Narrative: GEN: Alert and oriented, no acute distress at rest. HEENT: No rhinorrhea. OP benign. LUNGS: CTAB with normal effort CV: irregularly irregular, subtle 1/6 systolic murmur RUSB no radiation, no gallops, or rubs. ABD: active bowel sounds, soft, nontender and nondistended. No masses. EXT: no cyanosis, clubbing, or edema, cap refill in toes <2 seconds bilaterally, right foot orange tinted skin, not red/hot. ALEX down, wound dress with slight bloody drainage, but intact. No other joint redness/swelling. Objective Last Vital Signs Temp 36.4 C L 11/07/23 12:04 Pulse 91 H 11/07/23 12:04 Resp 19 11/07/23 12:04 BP 109/71 11/07/23 12:04 Pulse Ox 97 11/07/23 12:04 Laboratory Results - last 24 hr 11/04/23 11/07/23 11/07/23 14:00 08:15 12:40 WBC 13.04 H RBC 4.04 Hgb 10.3 L Hct 33.0 L MCV 82 MCH 25.5 L MCHC 31.2 L RDW 15.9 H Plt Count 430 H MPV 9.5 Sodium 141 Potassium 4.5 Chloride 106 Carbon Dioxide 25.5 Anion Gap 9.5 BUN 31 H Creatinine 1.1 H Est GFR (CKD-EPI 2020) 51.75 Glucose 110 H Fructosamine 263 Calcium 9.3 C-Reactive Protein 7.20 H Random Vancomycin 24.9 COVID-19 Source Nasal/Nares SARS-CoV-2 (PCR) Negative Time Spent with Patient Time Spent with Patient: 25-34 minutes Time was spent: preparing to see the patient(eg.review tests), obtaining and/or reviewing separately otained hiistory, ordering medications,tests, procedures, referring, communicating with other health care administrative tech, indepentently interpreting results and counseling the patient
[2023-11-07 19:53] VITALS: BP 117/51; PULSE 108; RESP 16; TEMP 36.4; O2SAT 97
[2023-11-07 21:48] VITALS: BP 123/76; PULSE 112; RESP 16; TEMP 36.3; O2SAT 96
[2023-11-07] MEDS: Simvastatin 20 MG TAB PO (21:53)
[2023-11-07] MEDS: cefTRIAXone 2 GM/50 ML BAG IVPB (22:20)
[2023-11-07 23:24] VITALS: BP 117/65; PULSE 69; RESP 18; TEMP 36.9; O2SAT 95
[2023-11-08 03:15] VITALS: BP 103/54; PULSE 103; RESP 16; TEMP 36; O2SAT 96
--- NOTE | 2023-11-08 06:54 | W.PC.ACHO ---
Registration Status: Primary Language: Preferred Language: Medical / Surgical History (Last Reviewed 11/04/23 @ 17:22 by Devon Ford) Cardiac murmur Urinary incontinence Umbilical hernia Severe obesity Gout Benign neoplasm of adrenal gland (Last Reviewed 11/04/23 @ 17:22 by Devon Ford) H/O bilateral breast reduction surgery H/O tubal ligation History of appendectomy H/O abdominoplasty H/O: hysterectomy Hx of cholecystectomy H/O umbilical hernia repair History of colonoscopy History of esophagogastroduodenoscopy Most Recent Vital Signs Temperature 36.0 C L 11/08/23 03:15 Temperature Source Temporal Artery Scan 11/08/23 03:15 Pulse 103 H 11/08/23 03:15 Pulse Rhythm Irregular 11/08/23 03:31 Respiratory Rate 16 11/08/23 03:15 Respiratory Effort Normal 11/08/23 03:31 Respiratory Depth Normal 11/08/23 03:31 Respiratory Pattern Normal 11/08/23 03:31 Blood Pressure 103/54 L 11/08/23 03:15 Pulse Oximetry 96 11/08/23 03:15 Respiratory End-tidal CO2 33 11/04/23 15:51 Oxygen Delivery Method Room Air 11/08/23 03:15 Oxygen Flow Rate 0 11/08/23 03:15 Pain Level 0 11/08/23 03:15 Comment When pt moves her leg pain goes to 05/2811/06/23 23:24 Allergies latex Allergy (Verified 09/29/23 11:03) Skin Rash lisinopril Adverse Reaction (Verified 09/29/23 11:03) Cough Active Medications Generic Name Dose Route Start Last Admin Trade Name Didierq PRN Reason Stop Dose Admin Acetaminophen 1,000 mg 11/03/23 20:00 11/07/23 21:50 Acetaminophen 500 Mg Tab PO 1,000 mg TID ROBBI Administration Acidophilus/Pectin 1 cap 11/05/23 08:00 11/07/23 17:03 Lactobacillus Acidophilus Cap PO 1 cap 0800,1200,1700 ROBBI Administration Allopurinol 100 mg 11/04/23 08:30 11/07/23 08:24 Allopurinol 100 Mg Tab PO 100 mg DAILY ROBBI Administration Apixaban 5 mg 11/05/23 20:00 11/07/23 21:52 Apixaban 5 Mg Tab PO 5 mg BID ROBBI Administration Ascorbic Acid 1,000 mg 11/03/23 20:00 11/07/23 21:54 Ascorbic Acid 500 Mg Tab PO 11/10/23 19:59 1,000 mg BID ROBBI Administration Cholecalciferol 2,000 units 11/04/23 08:30 11/07/23 08:24 Cholecalciferol (Vitamin D3) 1,000 Unit Tab PO 2,000 units DAILY ROBBI Administration Hydromorphone HCl 0.5 mg 11/03/23 13:35 11/05/23 03:52 Hydromorphone 2 Mg/Ml Syr IVP 0.5 mg Q2H PRN PRN Administration Ceftriaxone Sodium/Dextrose 2 gm in 50 mls @ 100 mls/hr 11/04/23 22:00 11/08/23 02:33 Rocephin IVPB Infused Q24H ROBBI Infusion Insulin Aspart 0 - 18 units 11/05/23 07:30 11/07/23 22:18 Insulin Aspart 300 Units/3 Ml Pen SC 2 units AC & HS ROBBI Administration Protocol Insulin Aspart 5 units 11/05/23 11:30 11/07/23 17:04 Insulin Aspart 300 Units/3 Ml Pen SC 5 units AC [facility] Administration Insulin Glargine 20 units 11/07/23 08:30 11/07/23 08:25 Insulin Glargine 300 Units/3 Ml Pen SC 20 units QAM [facility] Administration Metformin HCl 500 mg 11/04/23 08:30 11/07/23 08:22 Metformin 500 Mg Tab PO 500 mg DAILY ROBBI Administration Methocarbamol 750 mg 11/05/23 06:49 11/07/23 08:26 Methocarbamol 750 Mg Tab PO 750 mg QID PRN PRN Administration Metoprolol Tartrate 100 mg 11/04/23 08:30 11/07/23 21:51 Metoprolol 50 Mg Tab PO 100 mg BID [facility] Administration Multi-Ingredient Supplement 1 ounce 11/04/23 20:00 11/07/23 21:54 Protein Nutritional Supplement 16 Gm 1 Ounce Packet PO 1 ounce TID ROBBI Administration Ondansetron HCl 4 mg 11/03/23 13:35 11/03/23 23:19 Ondansetron 4 Mg/2 Ml Vial IVP 4 mg Q6H PRN PRN Administration Nausea Oxycodone HCl 0 mg 11/03/23 13:35 11/07/23 03:17 Oxycodone 5 Mg Tab PO 5 mg Q3H PRN PRN Administration Pain Pantoprazole Sodium 40 mg 11/05/23 07:30 11/07/23 08:24 Pantoprazole 40 Mg Tabcr PO 40 mg DAILY@0730 ROBBI Administration Pt's Own Semaglutide 1 each 11/06/23 14:00 11/06/23 15:09 [Ozempic] 2 Mg/Dose SC 1 each Pen Q7D ROBBI Administration Rifampin 300 mg 11/05/23 20:00 11/07/23 21:52 Rifampin 300 Mg Cap PO 300 mg BID ROBBI Administration Senna/Docusate Sodium 1 tab 11/05/23 08:30 11/07/23 21:53 Sennosides/Docusate Sodium Tab PO Not Given BID ROBBI Simvastatin 20 mg 11/04/23 20:00 11/07/23 21:53 Simvastatin 20 Mg Tab PO 20 mg QPM ROBBI Administration Sodium Chloride 0 ml 11/04/23 09:30 11/07/23 17:03 Normal Saline Flush 10 Ml Syr IVP 10 ml PRN PRN Administration Torsemide 10 mg 11/05/23 08:30 11/06/23 08:16 Torsemide 10 Mg Tab PO 10 mg DAILY ROBBI Administration Valsartan 320 mg 11/04/23 08:30 11/07/23 08:25 Valsartan 80 Mg Tab PO 320 mg DAILY ROBBI Administration Zinc Sulfate 220 mg 11/04/23 08:30 11/07/23 08:23 Zinc Sulfate 220 Mg Tab PO 11/11/23 08:29 220 mg DAILY ROBBI Administration IV IV Catheter Type [PICC] PICC Line IV Catheter Type [Left Wrist] Saline Lock IV Catheter Type [Right Saline Lock Antecubital] IV Catheter Type [Left Forearm Peripheral IV ] IV Catheter Gauge [Left Wrist] 20 IV Catheter Gauge [Right 18 Antecubital] IV Catheter Gauge [Left 20 Forearm] Diagnostics 11/07/23 11/07/23 11/04/23 Range/Units 12:40 08:15 14:00 WBC 13.04 H (4.4-10.8) 10^3/uL RBC 4.04 (3.93-5.22) 10^6/uL Hgb 10.3 L (11.2-15.7) g/dL Hct 33.0 L (36.0-46.0) % MCV 82 (80-95) fL MCH 25.5 L (27.0-33.0) pg MCHC 31.2 L (32.0-36.0) % RDW 15.9 H (11.7-14.6) % Plt Count 430 H (130-400) 10^3/uL MPV 9.5 (8.0-11.0) fL Sodium 141 (136-145) mmol/L Potassium 4.5 (3.5-5.1) mmol/L Chloride 106 (98-107) mmol/L Carbon Dioxide 25.5 (21.0-32.0) mmol/L Anion Gap 9.5 (3-11) mmol/L BUN 31 H (7-18) mg/dL Creatinine 1.1 H (0.55-1.02) mg/dL Est GFR (CKD-EPI 2020) 51.75 (mL/min/1.73m2) Glucose 110 H (74-106) mg/dL Fructosamine 263 (200 - 285) mcmol/L Calcium 9.3 (8.5-10.1) mg/dL C-Reactive Protein 7.20 H (<or=0.5) mg/dL Random Vancomycin 24.9 ug/mL COVID-19 Source Nasal/Nares SARS-CoV-2 (PCR) Negative (Negative) 11/03/23 18:42 Blood Culture - Preliminary Blood NO GROWTH 96 HOURS 11/04/23 14:16 Surgical Culture - Preliminary Femur - Right Gram Stain - Final 11/04/23 14:01 Surgical Culture - Preliminary Knee - Right Joint Staphylococcus Aureus Gram Stain - Final 11/04/23 13:50 Surgical Culture - Preliminary Knee - Right Staphylococcus Aureus Gram Stain - Final 11/04/23 14:18 Surgical Culture - Preliminary Femur - Right Staphylococcus Aureus Gram Stain - Final 11/05/23 07:05 Blood Culture - Preliminary Blood NO GROWTH 48 HOURS 11/05/23 07:15 Blood Culture - Preliminary Blood NO GROWTH 48 HOURS [id number] Documentation Fingerstick Glucose Start: 11/03/23 13:38 Freq: .achs Status: Active Protocol: Activity Type Activity Date Activity User E-sign Co-sign Detail Recorded Client Recorded Date Recorded By Document 11/07/23 20:00 BO TRAYLOR(3) [id number] 11/07/23 20:02 BO TRAYLOR(4) Intake and Output - 24 Hour Total 11/03/23 13:20 thru 11/08/23 03:31 Intake Total 7114.667 Output Total 8575 Balance -1460.333 Weight 123.831 kg Intake: IV 4634.667 Oral 2480 Output: Urine 8325 Estimated Blood Loss 250 Other: Urine Color Yellow Urine Appearance Clear Urine Odor Normal Comment pure wick in place Stool Size Moderate Stool Characteristics Liquid Emesis Description None Voiding Methods Diaper Incontinent Urinary Catheter Urinary Catheter Date of 11/04/23 Insertion [Uretheral (Mercado)] Urinary Catheter Date of 11/04/23 Insertion [Uretheral (Mercado)] Time of insertion [Uretheral ( 13:42 Mercado)] Falls Risk Assessment History of Falls Previous History 11/03/23 16:17 Contributing Factors Unstable,Impairments, 11/03/23 16:17 Medications Ambulatory Aids Uses ambulatory device + 11/03/23 16:17 Tubes/Lines With any additional score 11/03/23 16:17 Gait Evaluation W/any additional score 11/03/23 16:17 Cognition No cognitive impairment 11/03/23 16:17 Fall Total Score 94 11/03/23 16:17 Level of Risk Maximum Risk 11/03/23 16:17 Problems (Last Reviewed 11/04/23 @ 17:22 by Devon Ford) Hypertension (Chronic) COVID-19 (Acute) Bacteremia (Acute) COVID-19 virus infection (Acute) Infection of prosthetic right knee joint (Acute) Atrial fibrillation (Chronic) Type 2 diabetes mellitus (Acute) Hyperlipidemia (Acute) Notes 11/07/23 11:41 Nursing Notes by Giselle Head Nursing Note: PICC being placed for IV vanco today Initialized on 11/07/23 11:41 - END OF NOTE 11/05/23 15:56 Nursing Notes by Rafaela Penn Nursing Note: pt appeared to be in pain, when asked pt stated she was a 6/10 knee pain. Pt was offered narcotics, pt denied. pt was offered muscle relaxer, pt accepted. Initialized on 11/05/23 15:56 - END OF NOTE 11/05/23 13:20 Nursing Notes by Rafaela Penn Nursing Note: Nursing staff requested pt have family bring in her ozempic. Pt called son to have daughter bring it in later this afternoon. Initialized on 11/05/23 13:20 - END OF NOTE 11/04/23 17:30 Nursing Notes by Lashawn Vieyra Nursing Note: Patient arrived to floor alert from PACU, orientated, denies pain at this time, ice pack in place, antibiotics running. Initialized on 11/04/23 17:30 - END OF NOTE v v v v v v v v v Sending and/or Receiving Nurses: Please use comment section below to note any information pertinent to the patient hand-off not included above. Information / Comments: Report received from: Conrado
[2023-11-08 07:43] VITALS: BP 132/81; PULSE 95; RESP 19; TEMP 36.7; O2SAT 97
[2023-11-08] MEDS: Protein Nutritional Supplement 16 GM 1 OUNCE PACKET PO ×3 (08:27→22:10)
[2023-11-08] MEDS: Apixaban 5 MG TAB PO ×2 (08:28→22:07)
[2023-11-08] MEDS: Pantoprazole 40 MG TABCR PO (08:28)
[2023-11-08] MEDS: Sennosides/Docusate Sodium TAB 1 TAB PO (08:29)
[2023-11-08] MEDS: metFORMIN 500 MG TAB PO (08:29)
[2023-11-08] MEDS: Valsartan 80 MG TAB 320 MG PO (08:29)
[2023-11-08] MEDS: Acetaminophen 500 MG TAB 1000 MG PO ×3 (08:30→22:07)
[2023-11-08] MEDS: Allopurinol 100 MG TAB PO (08:30)
[2023-11-08] MEDS: Metoprolol 50 MG TAB 100 MG PO ×2 (08:30→22:09)
[2023-11-08] MEDS: Cholecalciferol (Vitamin D3) 1,000 UNIT TAB 2000 UNITS PO (08:30)
[2023-11-08] MEDS: Zinc Sulfate 220 MG TAB PO (08:31)
[2023-11-08] MEDS: rifAMPin 300 MG CAP PO ×2 (08:31→22:10)
[2023-11-08] MEDS: Lactobacillus Acidophilus CAP 1 CAP PO ×3 (08:31→17:00)
[2023-11-08] MEDS: Ascorbic Acid 500 MG TAB 1000 MG PO ×2 (08:31→22:09)
[2023-11-08] MEDS: Insulin Aspart 300 UNITS/3 ML PEN SC ×4 (08:32→17:01)
[2023-11-08] MEDS: Insulin Glargine 300 UNITS/3 ML PEN 20 UNITS SC (08:32)
[2023-11-08 11:13] VITALS: BP 120/81; PULSE 81; RESP 17; TEMP 36.8; O2SAT 97
--- NOTE | 2023-11-08 13:48 | PDOC.CMPRO ---
Date of service: 11/08/23 Time of Service: 13:48 Care Management Progress Note Progress Note Text Progress Note Text: Sylvia is agreeable to SNF for STR prior to discharging home, as recommended by PT. Unfortunately, Sylvia tested positive for Covid on 11/04/23, repeat test on 11/07/[address] [facility] is unable to offer her a bed until 11/14/23, due to current Covid guidelines. CM notified Jennifer at the [facility] that she tested negative yesterday and their DON is reviewing to determine if they would be able to take pt sooner. CM will continue to follow. Discharge Anticipated Barriers to Discharge: Other ( Covid positive on 11/04/23. Currently on isolation. ) Patient/Family Education Needs: Review discharge instructions, discuss Ask Me Three Transportation: Facility Transport Plan: Discharge recommendation is SNF for STR prior to discharging home, per PT. Referral's were sent to the [facility] and [facility] yesterday. Bed offer at the [facility] will be delayed until 11/14/23, due to Covid. Mine Wedge Sawyer at the [facility] is reviewing to determine if they would be able to take pt sooner given her negative result from yesterday. SWB1 should be considered if the [facility] is unable to accommodate sooner admission. Anticipate, pt will follow up with her orthopedic surgeon and plan of care as recommended. Transportation will be dependent on disposition. SDOH(Care Management) Screening Will the Patient Participate in the Screening?: Declined to provide
[2023-11-08] MEDS: Methocarbamol 750 MG TAB PO ×2 (14:16→22:12)
--- NOTE | 2023-11-08 15:04 | CHAPLAIN ---
Sylvia is here for an infected prosthetic knee. She was resting in bed when I visited. She's from the [place] area, so further from home. She said she is doing okay, and is in touch with family.
--- NOTE | 2023-11-08 15:56 | PT.INTREAT ---
PT Notes Visit Reasons: Periprosthetic Infection-Right Knee Inpatient Physical Therapy Treatment Note [facility] Date: 11/08/23 PRECAUTIONS:fall, standard, no right knee flexion > 90*, minimal active flexion, no loaded flexion SUBJECTIVE: Sylvia is agreeable to PT. Nursing present for treatment session. OBJECTIVE: ? Therapeutic Activities (19280i6): ? BED MOBILITY/TRANSFERS? Supine-sit: min A x 1? Sit-stand: mod A x 2, max cues for safety and hand placement, bed elevated. Utilized knee immobilizer during transfer. Performed 2 reps? Stand-sit: CGA x 2 ? Bed-Chair: min A x 1, CGA x1 Static standing x 2 minutes, 2 reps, FWW and CGA-min A. ? Therapeutic Exercises (66776x5): Direct one-on-one instruction in therapeutic exercises to develop strength, endurance, range of motion and flexibility. ? Instructed in the following exercises. ? Provided skilled instruction in proper exercise performance Provided skilled manual cues to facilitate proper muscle recruitment and/or form: quad sets 10x1 RLE SLR right: 10x supine, 50% assist? weight shift to RLE, 5x with bilat UE support to FWW? ASSESSMENT:?Able to transfer to chair with assist via stand pivot transfer. PLAN: Continue PT intervention to maximize strength and activity tolerance allowing for improved tolerance to transfer and ambulation. TREATMENT CODE/TIME: [id number] DISCHARGE RECOMMENDATION: Will likely require SNF for continued strengthening prior to return home.
--- NOTE | 2023-11-08 16:23 | PT.INTREAT ---
PT Notes Visit Reasons: Periprosthetic Infection-Right Knee Inpatient Physical Therapy Treatment Note [facility] Date: 11/08/23 PRECAUTIONS:fall, standard, no right knee flexion > 90*, minimal active flexion, no loaded flexion SUBJECTIVE: Sylvia has been sitting up in the chair. Her goal is to be able to return home without SNF stay. OBJECTIVE: ? Therapeutic Activities (11620x6): ? BED MOBILITY/TRANSFERS? Sit-stand: mod A x 2 from recliner chair, mod cues for safety and hand placement. Utilized knee immobilizer during transfer. ? Stand-sit: CGA x 2 ? Bed-Chair: CGA x 2 with FWW sit-supine: mod A to LEs GAIT: ambulates 6' with FWW, knee immobilizer, CGA x 2? Therapeutic Exercises (41239k2): Direct one-on-one instruction in therapeutic exercises to develop strength, endurance, range of motion and flexibility. ? Instructed in the following exercises. ? Provided skilled instruction in proper exercise performance Provided skilled manual cues to facilitate proper muscle recruitment and/or form: SLR right: 10x supine, 50% assist, 10x seated? ASSESSMENT:?Improving mobility. Encourage walking to facilitate return home. Continuing to require significant assist for sit-stand and bed mobility, but able to initiate ambulation this afternoon. Will continue progressing with goal of returning home, but with possible need for SNF if independence isn't improved. PLAN: Continue PT intervention to maximize strength and activity tolerance allowing for improved tolerance to transfer and ambulation. TREATMENT CODE/TIME: [id number] DISCHARGE RECOMMENDATION: SNF vs PT.
--- NOTE | 2023-11-08 16:52 | W.PM.PROGNOT ---
Date of Service Date of service: 11/08/23 Time of Service: 15:15 Assessment and Plan Assessment and plan (1) Type 2 diabetes mellitus: Status: Acute Assessment and plan: Doing much better in regards to her glucose control with insulin regimen. Appreciate hospitalist consultation and their management for this complex problem. Qualifiers: Diabetes mellitus terminal block assembler insulin use: without prison use Diabetes mellitus complication status: with hyperglycemia Qualified Code(s): E11.65 - Type 2 diabetes mellitus with hyperglycemia (2) COVID-19: Status: Acute Assessment and plan: Asymptomatic from a respiratory standpoint. Testing negative and d/c precautions. (3) Atrial fibrillation: Status: Chronic Assessment and plan: Rate control with metoprolol. She is on apixaban for clot risk from the atrial fibrillation. The effectiveness of the apixaban will be limited due to the use of rifampin but given no active clotting history of clotting disorder I think is a reasonable risk rather than switching to enoxaparin for the 3-month duration of rifampin. Qualifiers: Atrial fibrillation type: longstanding persistent Qualified Code(s): I48.11 - Longstanding persistent atrial fibrillation (4) Bacteremia: Status: Acute Assessment and plan: Staph Aureus. PICC line placed. Ceftriaxone x 6 weeks. (5) Infection of prosthetic right knee joint: Status: Acute Assessment and plan: Postop day #4 status post irrigation debridement, synovectomy, and polyethylene exchange. No acute complications. Vitals are stable. Continue slow mobilization physical therapy with minimal active flexion and no loaded flexion. MSSA confirmed with cultures, Ceftriaxone x 6 weeks. Will add on rifampin for Staph aureus infection and biofilm penetration. Subjective Subjective Interval history since last seen: Sylvia continues to report some burning type pain around the knee although notes more posterior than anterior. She mobilize the knee immobilizer with physical therapy and seems to think that that did help. No fevers no chills. No chest pain or shortness of breath. Exam Narrative Exam Narrative: Sitting up in the chair. No acute distress. Alert and orient x 3. Right lower extremity dressing is intact, clean, and dry. Minimal swelling in the leg. Intact ankle dorsiflexion, plantarflexion, great toe extension, great toe flexion. Objective Last Vital Signs Temp 36.8 C 11/08/23 11:13 Pulse 81 11/08/23 11:13 Resp 17 11/08/23 11:13 BP 120/81 11/08/23 11:13 Pulse Ox 97 11/08/23 11:13 Time Spent with Patient Time Spent with Patient: <25 minutes Time was spent: preparing to see the patient(eg.review tests), obtaining and/or reviewing separately otained hiistory, ordering medications,tests, procedures and counseling the patient
[2023-11-08 20:09] VITALS: BP 129/77; PULSE 90; RESP 16; TEMP 36.5; O2SAT 95
[2023-11-08 22:05] VITALS: BP 136/63; PULSE 127; RESP 16; TEMP 36.2; O2SAT 97
[2023-11-08] MEDS: Simvastatin 20 MG TAB PO (22:11)
[2023-11-08] MEDS: cefTRIAXone 2 GM/50 ML BAG IVPB (22:12)
[2023-11-08] MEDS: Normal Saline Flush 10 ML SYR IVP (22:12)
[2023-11-09] MEDS: oxyCODONE 5 MG TAB PO ×2 (00:28→10:32)
[2023-11-09 03:23] VITALS: BP 120/67; PULSE 96; RESP 16; TEMP 36.9; O2SAT 97
[2023-11-09 06:32] LABS: HCT 28.8 % (36.0-46.0); MCH 25.5 pg (27.0-33.0); MCHC 31.3 % (32.0-36.0); MCV 82 fL (80-95); MPV 9.2 fL (8.0-11.0); Platelet Count 495 10^3/uL (130-400); RBC 3.53 10^6/uL (3.93-5.22); RDW 16.2 % (11.7-14.6); RDW-SD 47.5 fL; WBC 13.78 10^3/uL (4.4-10.8)
[2023-11-09 06:53] LABS: ALT 10 U/L (14-59); AST 12 U/L (15-37); Alkaline Phosphatase 113 U/L (46-116); Anion Gap 6.4 mmol/L (3-11); BUN 22 mg/dL (7-18); Bilirubin, Total 0.31 mg/dL (0.2-1.0); C-Reactive Protein 5.07 mg/dL (<or=0.5); CO2 28.6 mmol/L (21.0-32.0); Calcium 9.2 mg/dL (8.5-10.1); Chloride 105 mmol/L (98-107); Estimated GFR 58.02 (mL/min/1.73m2); Glucose 131 mg/dL (74-106); Sodium 140 mmol/L (136-145); Total Protein 7.1 g/dL (6.4-8.2)
[2023-11-09 07:46] VITALS: BP 140/75; PULSE 68; RESP 18; TEMP 36.6; O2SAT 95
[2023-11-09] MEDS: rifAMPin 300 MG CAP PO ×2 (08:48→19:37)
[2023-11-09] MEDS: Valsartan 80 MG TAB 320 MG PO (08:48)
[2023-11-09] MEDS: Zinc Sulfate 220 MG TAB PO (08:49)
[2023-11-09] MEDS: Acetaminophen 500 MG TAB 1000 MG PO ×3 (08:50→19:37)
[2023-11-09] MEDS: Apixaban 5 MG TAB PO ×2 (08:50→19:38)
[2023-11-09] MEDS: Allopurinol 100 MG TAB PO (08:50)
[2023-11-09] MEDS: Metoprolol 50 MG TAB 100 MG PO ×2 (08:50→19:38)
[2023-11-09] MEDS: Lactobacillus Acidophilus CAP 1 CAP PO ×3 (08:50→17:06)
[2023-11-09] MEDS: metFORMIN 500 MG TAB PO (08:50)
[2023-11-09] MEDS: Cholecalciferol (Vitamin D3) 1,000 UNIT TAB 2000 UNITS PO (08:50)
[2023-11-09] MEDS: Ascorbic Acid 500 MG TAB 1000 MG PO ×2 (08:50→19:37)
[2023-11-09] MEDS: Pantoprazole 40 MG TABCR PO (08:50)
[2023-11-09] MEDS: Protein Nutritional Supplement 16 GM 1 OUNCE PACKET PO ×2 (08:51→19:36)
[2023-11-09] MEDS: Insulin Glargine 300 UNITS/3 ML PEN 20 UNITS SC (08:55)
[2023-11-09] MEDS: Insulin Aspart 300 UNITS/3 ML PEN SC ×4 (08:55→17:07)
[2023-11-09] MEDS: Normal Saline Flush 10 ML SYR IVP (08:58)
--- NOTE | 2023-11-09 10:19 | PDOC.CMPRO ---
Date of service: 11/09/23 Time of Service: 10:19 SDOH(Care Management) Screening Will the Patient Participate in the Screening?: Declined to provide
[2023-11-09 11:33] VITALS: BP 121/57; PULSE 94; RESP 18; TEMP 36.7; O2SAT 96
--- NOTE | 2023-11-09 12:24 | PT.INTREAT ---
PT Notes Visit Reasons: Periprosthetic Infection-Right Knee Inpatient Physical Therapy Treatment Note [facility] Date: 11/09/23 PRECAUTIONS:fall, standard, no right knee flexion > 90*, minimal active flexion, no loaded flexion SUBJECTIVE: Sylvia is agreeable to PT treatment this am. OBJECTIVE: ? Therapeutic Activities (26228o6): ? BED MOBILITY/TRANSFERS? Sit-stand: mod A x 1 from elevated bed, mod cues for safety and hand placement. Utilized knee immobilizer during transfer. ? Stand-sit: CGA ? Bed-Chair: CGA x 1 with FWW GAIT: ambulates 6' with FWW, knee immobilizer, CGA x 1. Demonstrates limited foot clearance, with slow, shuffling gait, with heavy reliance on FWW for support. ? Therapeutic Exercises (09938b0): Direct one-on-one instruction in therapeutic exercises to develop strength, endurance, range of motion and flexibility. ? Instructed in the following exercises. ? Provided skilled instruction in proper exercise performance Provided skilled manual cues to facilitate proper muscle recruitment and/or form: SLR right: 10x supine, 50% assist, 10x seated? ASSESSMENT:?Improving mobility. Encourage walking to facilitate return home. Continuing to require significant assist for sit-stand and bed mobility. Plans to utilize lift chair at home. Will continue progressing with goal of returning home, but with possible need for SNF if independence isn't improved. PLAN: Continue PT intervention to maximize strength and activity tolerance allowing for improved tolerance to transfer and ambulation. TREATMENT CODE/TIME: [id number] DISCHARGE RECOMMENDATION: SNF vs PT.
--- NOTE | 2023-11-09 14:26 | PT.INTREAT ---
PT Notes Visit Reasons: Periprosthetic Infection-Right Knee Inpatient Physical Therapy Treatment Note [facility] Date: 11/09/23 SUBJECTIVE: Sylvia states that she is hoping to go home this wknd. She states that she is not in any pain. OBJECTIVE: []? VITALS: ?monitored by nsg. Therapeutic Activities (58384m4): Direct one-on-one instruction in dynamic activities to improve functional performance. ? BED MOBILITY/TRANSFERS? Supine-sit: min assist ? Sit-supine: mod assist with R LE ? Sit-stand: CGA ? Stand-sit: CGA? Provided skilled cues and instruction on performance and technique throughout. GAIT? Assistive Device: FWW ? Weight bearing: AT right Assist: CGA ? Distance:?approx 30'? Therapeutic Exercises (26914s7): Direct one-on-one instruction in therapeutic exercises to develop strength, endurance, range of motion and flexibility. ? Exercises. SLR x10ea supine and sitting, modified bridging x5, sit to stand x3 at EOB ? ASSESSMENT:? tolerated session well. Still requires assistance with transfers into and OOB, does well once on her feet. PLAN: will continue to work strength and functional mobility. TREATMENT CODE/TIME: 25 min. [id number], 64161g7 DISCHARGE RECOMMENDATION: home with once medically cleared.
[2023-11-09 15:01] VITALS: BP 112/61; PULSE 94; RESP 19; TEMP 36.9; O2SAT 98
--- NOTE | 2023-11-09 16:10 | CMDISCH_ITS ---
Date of service: 11/09/23 Time of Service: 16:10 LACE Index Scoring Tool Questions: Length of Stay (in days): 4 - 6 Was the patient admitted via the E.D.?: No Comorbidities: Diabetes w/o Complication E.D. Visits: 0 Answers: Total Score: 5 Risk of Readmission: Low Risk Care Management Discharge Plan Reason for Hospitalization: Prosthetic knee infection Discharge Plan: Sylvia requires additional PT to progress towards goal of di scharging home and is discharged to [facility] level care. Anticipated, [facility] stay will be 3-5 days. After being cleared by PT, Sylvia will discharge home on home IV ABX and with New O/E VNA services. Daughter will help with home IV therapy. Patient/Family Education Needs: Review plan to discharge to [facility]. Discuss ask me three. SDOH Health Related Social Needs: No Data to Display
--- NOTE | 2023-11-09 18:55 | W.PM.DS.N ---
Date of service: 11/09/23 Time of Service: 13:00 DS: Diagnosis Discharge Diagnosis (1) Type 2 diabetes mellitus: Status: Acute (2) COVID-19: Status: Acute (3) Atrial fibrillation: Status: Chronic (4) Bacteremia: Status: Acute (5) Infection of prosthetic right knee joint: Status: Acute Discharge Plan Disposition Patient Disposition: Swing Bed(Skilled,SB1) Condition: Improving Discharge Details Reason For Visit: Periprosthetic Infection-Right Knee Admit Date/Time: 11/03/23 13:35 Admit Provider: Sandeep Willett Attending Provider: Sandeep Willett Primary Care Provider: Rachael Mejia Hospital Course Hospital Course: Sylvia was admitted to the hospital by transfer from [facility] for infected prosthetic knee on the right side. She was tested for COVID-19 at [facility] was found to be positive although without significant respiratory or other systemic symptoms. She was taken to the operating room hospital day #2 for an aggressive synovectomy, irrigation and debridement and polyethylene exchange was performed. She was kept on broad-spectrum antibiotics until cultures finalized with MSSA. She was started on rifampin as well for biofilm breakdown and penetration. She is also found to have significant hyperglycemia and the hospital service was consulted for help with management of this we then established a insulin regimen with significant improvements. She continue to make some improvements and had improved labs and stable vital signs. She continued to have difficulty with some transferring independent mobility. She was stable on a regimen of IV ceftriaxone and oral rifampin. She was stable with her insulin routine however still required assistance with mobility and therefore was deemed a good candidate for swing bed status. At the time of discharge inpatient she was testing negative for COVID-19 and had no other significant medical issues Home Meds and New Rx's Prescriptions: No Action Eliquis 5 mg tablet 5 mg PO BID Patient Comments: pt unsure allopurinol 100 mg tablet 100 mg PO DAILY metformin 500 mg tablet 500 mg PO DAILY valsartan 320 mg tablet 320 mg PO DAILY Ozempic 1 mg/dose (4 mg/3 mL) pen injector 1 mg subcut QWEEK Patient Comments: pt. unsure of last time torsemide 10 mg tablet 10 mg PO DAILY Patient Comments: TAKE ONE TABLET BY MOUTH EVERY DAY simvastatin 20 mg tablet 20 mg PO DAILY Patient Comments: TAKE ONE TABLET BY MOUTH AT BEDTIME acetaminophen 500 mg tablet 1,000 mg PO TID Qty: 90 3RF celecoxib 200 mg capsule 200 mg PO BID Qty: 60 0RF pantoprazole 40 mg tablet,delayed release (DR/EC) 40 mg PO DAILY Qty: 30 0RF oxycodone 5 mg tablet 5 mg PO Q6H PRN (Reason: pain) Qty: 10 0RF metoprolol succinate 200 mg tablet extended release 24 hr 200 mg PO DAILY Patient Comments: TAKE ONE TABLET BY MOUTH EVERY DAY Discharge Instructions Activity:: Activity as Tolerated Equipment/Supplies:: No Equipment Needed Diet:: Carb Counting DS: Summary Time Spent with Patient providing and/or coordinating discharge services: Less than 30 minutes Status at Discharge Functional status at discharge: uses cane/walker Overall status at discharge: patient is progressing back to baseline Mental Status: mental status grossly normal Speech and Movement: speech and movement normal Mood: congruent mood Affect: normal affect Quality:SDOH Health Related Social Needs: No Data to Display Exam Narrative Exam Narrative: Sitting up in the chair. No acute distress. Alert and orient x 3. Right lower extremity dressings clean dry and intact. She has intact ankle dorsiflexion, plantarflexion, great toe extension, great toe flexion. Psych Mental Status: mental status grossly normal Speech and Movement: speech and movement normal Mood: congruent mood Affect: normal affect DS: Data Vitals/I&O Vitals and I&O: Vital Signs Temperature 36.9 C 11/09/23 15:01 Temperature Source Skin 11/09/23 15:01 Pulse 94 H 11/09/23 15:01 Pulse Rhythm Irregular 11/09/23 10:45 Respiratory Rate 19 11/09/23 15:01 Respiratory Effort Normal 11/09/23 10:45 Respiratory Depth Normal 11/09/23 10:45 Respiratory Pattern Normal 11/09/23 10:45 Blood Pressure 112/61 11/09/23 15:01 Pulse Oximetry 98 11/09/23 15:01 Respiratory End-tidal CO2 33 11/04/23 15:51 Oxygen Delivery Method Room Air 11/09/23 15:01 Oxygen Flow Rate 0 11/09/23 15:01 Pain Level 0 11/09/23 15:01 Comment When pt moves her leg pain goes to 05/2811/06/23 23:24 Intake & Output 11/08/23 11/09/23 11/09/23 23:59 11:59 23:59 Intake Total 440 / 690 50 / 150 100 / 150 Output Total 650 / 650 650 / 1150 500 / 1150 Balance -210 / 40 -600 / -1000 -400 / -1000 Intake: IV 50 / 50 Oral 440 / 640 100 / 100 Output: Urine 650 / 650 650 / 1150 500 / 1150 Other: Urine Color Light Mildred Light Mildred Straw Urine Appearance Clear Clear Clear Comment Purewick changed, pT was incontinent. Purewick. Stool Size Moderate Stool Characteristics Foamy Voiding Methods Diaper Incontinent Data Completed and Pending Labs on day of discharge: Labs from last 24 hours 11/09/23 05:40 WBC 13.78 H RBC 3.53 L Hgb 9.0 L Hct 28.8 L MCV 82 MCH 25.5 L MCHC 31.3 L RDW 16.2 H Plt Count 495 H MPV 9.2 Sodium 140 Potassium 4.0 Chloride 105 Carbon Dioxide 28.6 Anion Gap 6.4 BUN 22 H Creatinine 1.0 Est GFR (CKD-EPI 2020) 58.02 Glucose 131 H Calcium 9.2 Total Bilirubin 0.31 AST 12 L ALT 10 L Alkaline Phosphatase 113 C-Reactive Protein 5.07 H Total Protein 7.1 Albumin 2.0 L Preliminary micro results at discharge 11/04/23 14:18 Surgical Culture - Preliminary Femur - Right Staphylococcus Aureus 11/04/23 13:50 Surgical Culture - Preliminary Knee - Right Staphylococcus Aureus 11/04/23 14:01 Surgical Culture - Preliminary Knee - Right Joint Staphylococcus Aureus 11/04/23 14:16 Surgical Culture - Preliminary Femur - Right 11/05/23 07:05 Blood Culture - Preliminary Blood NO GROWTH 96 HOURS 11/05/23 07:15 Blood Culture - Preliminary Blood NO GROWTH 96 HOURS 11/04/23 13:50 Anaerobic Culture - Preliminary Knee - Right 11/04/23 14:19 Anaerobic Culture - Preliminary Knee - Right Joint 11/04/23 14:19 Anaerobic Culture - Preliminary Knee - Right 11/04/23 14:17 Anaerobic Culture - Preliminary Knee - Right PFSH All Active Problems (Updated 11/09/23 @ 19:00 by Sandeep Willett MD) Hypertension (Chronic) COVID-19 (Acute) Bacteremia (Acute) COVID-19 virus infection (Acute) Infection of prosthetic right knee joint (Acute) History of left knee replacement (Acute 04/27/23) History of total right knee replacement (Acute 03/08/23) Atrial fibrillation (Chronic) Type 2 diabetes mellitus (Acute) Hyperlipidemia (Acute) Acquired cystic kidney disease (Acute) She denies this Medical History Cardiac murmur Pt. stated she said it was nothing to worry about, just gave me blood thinners (Pt. has Afib) Urinary incontinence Umbilical hernia Severe obesity Gout Benign neoplasm of adrenal gland Surgical History H/O bilateral breast reduction surgery H/O tubal ligation History of appendectomy H/O abdominoplasty H/O: hysterectomy Hx of cholecystectomy H/O umbilical hernia repair History of colonoscopy date of procedure 11/29/18 History of esophagogastroduodenoscopy Family History Mother Diabetes Granddaughter Diabetes Brother Cancer Social History Smoking/Tobacco Use Status: Former Tobacco Use Quit Date: 04/18/07 Smoking risk assessment performed?: Yes Alcohol Intake: never Drug use: Never Substance use type: does not use Housing: house Do you feel safe at home: Yes Do you feel safe in your relationship?: Yes Additional Social history: Lives with and one grandson in [place]. Granddaughter Vashti helps her with healthcare Time Spent with Patient Time Spent with Patient: <45 minutes Time was spent: preparing to see the patient(eg.review tests), obtaining and/or reviewing separately otained hiistory, indepentently interpreting results and counseling the patient
[2023-11-09 19:34] VITALS: BP 118/62; PULSE 97; RESP 16; TEMP 36.3; O2SAT 97
[2023-11-09] MEDS: Simvastatin 20 MG TAB PO (19:38)
== END 2023-11-09 21:19 | disposition swing bed (61) | DRG 485 ==
PROVIDERS: Family Medicine; Nurse Anesthetist, Certified Registered; Admitting Provider Student in an Organized Health Care Education/Training Program; PCP Internal Medicine; Visit Provider Student in an Organized Health Care Education/Training Program
PROC: 0SBC0ZZ Excision of Right Knee Joint, Open Approach (ICD-10-PCS; CPT 27486; principal; 2023-11-04 11:45)
DX: T84.53XA Infection and inflammatory reaction due to internal right knee prosthesis, initial encounter (principal); U07.1 COVID-19; Z68.42 Body mass index [BMI] 45.0-49.9, adult; R78.81 Bacteremia; I48.11 Longstanding persistent atrial fibrillation; Z96.653 Presence of artificial knee joint, bilateral; E66.01 Morbid (severe) obesity due to excess calories; E78.5 Hyperlipidemia, unspecified; E11.65 Type 2 diabetes mellitus with hyperglycemia; Z87.891 Personal history of nicotine dependence; B95.61 Methicillin susceptible Staphylococcus aureus infection as the cause of diseases classified elsewhere
CPT/HCPCS: 36573; 27486; 00123; 36410; 36415; 71045; 80048; 80053; 82947; 85027; 85652; 86850; 86900; 86901; 87040; 87077; 87635; 87641; 97110; 97162; 97530; 73560; 80202; 82985; 83036; 83735; 86140; 87070; 87075; 87186; 87205; 99222; 99231; 99232; C1776; J0690; J0696; J1100; J1170; J1815; J2001; J2371; J2405; J2704; J3372

== ENCOUNTER 2023-11-09 18:51 | Inpatient (IN) | payer MEDICARE, SELFPAY ==
--- NOTE | 2023-11-09 15:33 | CMSCP_ITS ---
Date of service: 11/09/23 Time of Service: 15:33 Swingbed Plan of Care Activites/Discharge Plan of care: SWING BED PROGRAM ACTIVITIES/DISCHARGE PLAN OF CARE ACTIVITIES PLAN Date: 11/09/23 Identified Need: Activities for life enrichment during prolonged hospitalization, which has transitioned from inpatient level care to [facility]. Intervention/Plan: Individual Plan for life enrichment, activities from the cart, music tablet, Pet therapy, if available, TV with remote etc. Initials DL DISCHARGE PLAN Date: 11/09/23 Identified Need: Additional PT to progress towards goal of discharging home and is discharged to [facility] level care. Anticipated, [facility] stay will be 3-5 days. Intervention/Plan: After being cleared by PT, Sylvia will discharge home on home IV ABX and with New O/E VNA services. Daughter will help with home IV therapy. CM will support coordination of discharge. Initials ALEJANDRO
--- NOTE | 2023-11-09 15:33 | CM.SBPSYCH ---
Date of service: 11/09/23 Time of Service: 15:33 SB Psychosocial/[facility]. [facility] Admission Admission Date: 11/03/23 Admission From:: Med Surg Inpatient Diagnosis:: Prosthetic right knee infection Swing Bed Admission Swing Bed Admit Date:: 11/09/23 Swing Bed Level of Care: Level 1/SNF Social Supports PREVIOUS FUNCTIONAL STATUS/SOCIAL/FAMILY SUPPORTS:: and daughters Katie and Deloris Prior to Admission Living Arrangements/Environment Prior to Admission:: Sylvia resides with her Education Highest Grade Completed:: n/a Work History Employment Status:: Retired [place]: No 's Spouse: No Benefits Financial: Social Security [employer] Active Adventism Member:: No Will Adventism Members or Furnace Combustion Tester Visit:: No Interests Hobbies:: Reading, word search Present Functional Status Physical Abilities:: Limited Cognitive:: WNL Communication:: WNL Sensory Systems: WNL Behavior:: Pleasant, appropriate Medical History PAST MEDICAL HISTORY/PAST SURGICAL HISTORY:: Diabetes type 2, prosthetic right knee Past Psychiatric Treatment:: NA Admission Data Reason for Swing Bed Admission:: Sylvia requires additional PT to progress towards goal of discharging home and is discharged to [facility] level care. Discharge Plan:: After being cleared by PT, Sylvia will discharge home on home IV ABX and with [facility] O/E VNA services. Daughter will help with home IV therapy. Patient will be driven home by family and follow up with Ortho and community providers. Assessment: Sylvia is pleasant and agreeable to a short SWB stay to help her progress towards her goal of discharging home with New IV ABX, coordinated by CM. Psychologist Engineering: Margot Renteria RN Date Assessment was completed:: 11/09/23
--- NOTE | 2023-11-09 15:34 | CMPROGNOTE_ITS ---
Date of service: 11/09/23 Time of Service: 15:34 Care Management Progress Note Progress Note Text Progress Note Text: Sylvia was lying in bed when CM met with her. She verbalizes her agreement to transition to SWB1 level care for additional PT prior to discharging home on LT home IV ABX. CM is in the process of coordinating Home IV therapy and O/E VNA RN. CM spoke with patients daughter Katie and she is agreeable to help her with home IV therapy when discharged. [facility] will be $147.00 weekly, currently awaiting estimate from [facility]. Discharge Patient/Family Education Needs: Review discharge instructions, discuss Ask Me Three Transportation: Private vehicle Plan: Sylvia requires additional PT to progress towards goal of discharging home and is discharged to SWB1 level care. Anticipated, SWB1 stay will be 3-5 days. After being cleared by PT, Sylvia will discharge home on home IV ABX and with [facility] O/E VNA services. Daughter will help with home IV therapy. Anticipated HH Services Anticipated HH Services at Discharge VNA (RN, PT) Services Needed.
--- NOTE | 2023-11-09 19:10 | HPE_ITS ---
Date of service: 11/09/23 Time of Service: 13:00 Assessment and Plan Assessment and plan (1) Type 2 diabetes mellitus: Status: Acute Assessment and plan: Continue insulin regimen. Appreciate hospitalist consultation and their management for this complex problem. Qualifiers: Diabetes mellitus side laster staple insulin use: without mcc use Diabetes mellitus complication status: with hyperglycemia Qualified Code(s): E11.65 - Type 2 diabetes mellitus with hyperglycemia (2) Atrial fibrillation: Status: Chronic Assessment and plan: Rate control with metoprolol. She is on apixaban for clot risk from the atrial fibrillation. The effectiveness of the apixaban will be limited due to the use of rifampin but given no active clotting history of clotting disorder I think is a reasonable risk rather than switching to enoxaparin for the 3-month duration of rifampin. Qualifiers: Atrial fibrillation type: longstanding persistent Qualified Code(s): I48.11 - Longstanding persistent atrial fibrillation (3) Bacteremia: Status: Acute Assessment and plan: Staph Aureus. PICC line placed. Ceftriaxone x 6 weeks. (4) Infection of prosthetic right knee joint: Status: Acute Assessment and plan: Postop day #5 status post irrigation debridement, synovectomy, and polyethylene exchange. No acute complications. Vitals are stable. Continue slow mobilization physical therapy with minimal active flexion and no loaded flexion. MSSA confirmed with cultures, Ceftriaxone x 6 weeks. Will add on rifampin for Staph aureus infection and biofilm penetration. History of Present Illness History of Present Illness Chief Complaint: Infected Right Knee Replacement Narrative: Sylvia was admitted to the hospital by transfer from [facility] for infected prosthetic knee on the right side. She was tested for COVID-19 at [facility] was found to be positive although without significant respiratory or other systemic symptoms. She was taken to the operating room hospital day #2 for an aggressive synovectomy, irrigation and debridement and polyethylene exchange was performed. She was kept on broad-spectrum antibiotics until cultures finalized with MSSA. She was started on rifampin as well for biofilm breakdown and penetration. She is also found to have significant hyperglycemia and the hospital service was consulted for help with management of this we then established a insulin regimen with significant improvements. She continue to make some improvements and had improved labs and stable vital signs. She continued to have difficulty with some transferring independent mobility. She was stable on a regimen of IV ceftriaxone and oral rifampin. She was stable with her insulin routine however still required assistance with mobility and therefore was deemed a good candidate for swing bed status and was thus admitted to swing bed status. Review of Systems All systems reviewed & are unremarkable except as noted in HPI and below PFSH All Active Problems Hypertension (Chronic) COVID-19 (Acute) Bacteremia (Acute) COVID-19 virus infection (Acute) Infection of prosthetic right knee joint (Acute) History of left knee replacement (Acute 04/27/23) History of total right knee replacement (Acute 03/08/23) Atrial fibrillation (Chronic) Type 2 diabetes mellitus (Acute) Hyperlipidemia (Acute) Acquired cystic kidney disease (Acute) She denies this Medical History Cardiac murmur Pt. stated she said it was nothing to worry about, just gave me blood thinners (Pt. has Afib) Urinary incontinence Umbilical hernia Severe obesity Gout Benign neoplasm of adrenal gland Surgical History H/O bilateral breast reduction surgery H/O tubal ligation History of appendectomy H/O abdominoplasty H/O: hysterectomy Hx of cholecystectomy H/O umbilical hernia repair History of colonoscopy date of procedure 11/29/18 History of esophagogastroduodenoscopy Family History Mother Diabetes Granddaughter Diabetes Brother Cancer Social History Smoking/Tobacco Use Status: Former Tobacco Use Quit Date: 04/18/07 Smoking risk assessment performed?: Yes Alcohol Intake: never Drug use: Never Substance use type: does not use Housing: house Do you feel safe at home: Yes Do you feel safe in your relationship?: Yes Additional Social history: Lives with and one grandson in [place]. Granddaughter Vashti helps her with healthcare Meds Allergies and Home Medications Allergies Allergy/AdvReac Type Severity Reaction Status Date / Time latex Allergy Skin Rash Verified 09/29/23 11:03 lisinopril AdvReac Cough Verified 09/29/23 11:03 Home Medications ?Medication ?Instructions ?Recorded ?Confirmed ?Type allopurinol 100 mg tablet 100 mg PO DAILY 10/06/22 11/05/23 History metformin 500 mg tablet 500 mg PO DAILY 10/06/22 11/05/23 History valsartan 320 mg tablet 320 mg PO DAILY 10/06/22 11/05/23 History apixaban 5 mg tablet (Eliquis) 5 mg PO BID 12/31/22 11/05/23 History semaglutide 1 mg/dose (4 mg/3 mL) 1 mg subcut QWEEK 12/31/22 11/05/23 History subcutaneous pen injector (Ozempic) simvastatin 20 mg tablet 20 mg PO DAILY 04/29/23 11/05/23 History torsemide 10 mg tablet 10 mg PO DAILY 04/29/23 11/05/23 History acetaminophen 500 mg tablet 1,000 mg (2 x 500 mg) PO TID #90 09/14/23 11/05/23 Rx tabs celecoxib 200 mg capsule 200 mg PO BID #60 caps 09/14/23 11/05/23 Rx pantoprazole 40 mg tablet,delayed 40 mg PO DAILY #30 tabs 09/14/23 11/05/23 Rx release oxycodone 5 mg tablet 5 mg PO Q6H PRN pain #10 tabs 09/15/23 11/05/23 Rx metoprolol succinate 200 mg 200 mg PO DAILY 11/04/23 11/04/23 History tablet,extended release 24 hr Exam Const General: cooperative, comfortable and no acute distress Resp Effort & Inspection: normal respiratory effort Auscultation: clear to auscultation bilaterally Cardio Rate: regular rate Rhythm: abnormal rhythm Time Spent Time spent with Patient: <40 minutes Time was spent: preparing to see the patient(eg.review tests), obtaining and/or reviewing separately otained hiistory, indepentently interpreting results and counseling the patient
[2023-11-09] MEDS: cefTRIAXone 2 GM/50 ML BAG IVPB (22:09)
[2023-11-09 23:58] VITALS: BP 118/62; PULSE 97; RESP 16; TEMP 36.3; O2SAT 97
[2023-11-10 07:41] VITALS: BP 126/82; PULSE 56; RESP 16; TEMP 36.9; O2SAT 98
[2023-11-10] MEDS: metFORMIN 500 MG TAB PO (07:56)
[2023-11-10] MEDS: Acetaminophen 500 MG TAB 1000 MG PO ×3 (07:56→20:22)
[2023-11-10] MEDS: Apixaban 5 MG TAB PO ×2 (07:56→20:22)
[2023-11-10] MEDS: Metoprolol 50 MG TAB 100 MG PO ×2 (07:57→20:22)
[2023-11-10] MEDS: Celecoxib 200 MG CAP PO ×2 (07:58→20:22)
[2023-11-10] MEDS: Torsemide 10 MG TAB PO (07:58)
[2023-11-10] MEDS: Simvastatin 20 MG TAB PO (07:58)
[2023-11-10] MEDS: rifAMPin 300 MG CAP PO ×2 (07:58→20:21)
[2023-11-10] MEDS: Valsartan 80 MG TAB 320 MG PO (07:59)
[2023-11-10] MEDS: Allopurinol 100 MG TAB PO (07:59)
[2023-11-10] MEDS: Insulin Aspart 300 UNITS/3 ML PEN SC ×3 (08:00→18:20)
--- NOTE | 2023-11-10 08:05 | PT.DS ---
Supervising Provider: Narcisa De La Rosa PT Diagnosis: prosthetic knee infection, right Diagnosis: prosthetic knee infection, right Weeks Elapsed: week(s) and 0 day(s) Patient Location: Med Surg Referring Provider: Date of Service: November 10, 2023 8:05 am PT Notes Visit Reasons: Prosthetic Knee Infection-Right Ward participated in PT intervention in acute care setting from 11/04/23 - 11/09/23. She demonstrated gains in mobility, although with continued need for assistance with transfers and ambulation. She transitioned to Swing Bed status, and will require continued PT intervention to allow for progress toward established goals to allow for safe return home.
[2023-11-10] MEDS: Insulin Glargine 300 UNITS/3 ML PEN 20 UNITS SC (08:12)
--- NOTE | 2023-11-10 08:55 | PT.INIE ---
Date of service: 11/10/23 Time of Service: 08:30 PT Notes Visit Reasons: Prosthetic Knee Infection-Right Inpatient Physical Therapy Evaluation Date: November 10, 2023 Referring Doctor: Sandeep Willett PT Orders: PT CONSULT: s/p I&D right TKA. No flexion > 90* Precautions: Standard, No knee flexion > 90 degrees Patient Profile/Admitting Diagnosis: Sylvia admitted for medical management of infection of right TKA, now s/p Irrigation and Debridement, Synovectomy, and Polyethylene Exchange - RIGHT Knee with NEPTALI Vacuum Assisted Dressing Application. 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 She then developed another infection, and underwent surgery as above earlier this week. Swing bed status for continued rehab to be able to return home with home health services once stronger. Social History/Home Situation: Patient lives with in a private room with ramp to enter. Will have support of children and grandchildren at home, with many of them living just a few minutes down the road. She had been ambulating with FWW and brace since her last surgery. Utilizes lift chair at home. Equipment Owned/DME: FWW, lift chair Subjective: Sylvia states that she is feeling well. She does have pain in the right knee, rating as 4/10. Believes that her knee is more irritated due to its position in bed. Agreeable to PT consult this morning to get up into chair. Objective: General Observation: Resting in bed, Mercado catheter in place, Neptali wound vac in place right LE. Mental Status: A&Ox3. Pleasant and cooperative. Pain: 4/10 left knee Vital Signs: monitored by nursing ROM: Right Upper Extremity: WFL Left Upper Extremity: WFL Right Lower Extremity: Left knee extension is full passively. Functionally demonstrates hip flexion to 80*, knee flexion to 80*. Verbalizes understanding of restrictions in knee flexion without cues. Left Lower Extremity: Left knee 0-90* functionally. Strength: Right Upper Extremity: Triceps 4/5. Biceps 3/5 or greater (not assessed with resistance due to IV lines). Left Upper Extremity: Triceps 4/5. Biceps 3/5 or greater (not assessed with resistance due to IV lines). Right Lower Extremity: Ankle DF 3/5 or greater. Left Lower Extremity: Able to perform LAQ. Ankle DF 3/5 or greater. Sensation: Bed Mobility/Transfers: Supine-sit: min assist ? Sit-supine: mod assist with R LE ? Sit-stand: CGA ? Stand-sit: CGA? Provided skilled cues and instruction on performance and technique throughout. GAIT? Assistive Device: FWW ? Weight bearing: AT right Assist: CGA ? Distance:?bed to chair? ? Balance: Static Sitting:Normal Dynamic Sitting: Good Static Standing: Fair Dynamic Standing: Poor Special Tests: Mobility Limitations Standardized Measure [facility] AM-PAC 6 clicks Basic Mobility Inpatient Short Form: Raw Score: 17 CMS Score: 51% Informed Consent/Education: Patient instructed in purpose of PT consult and plan of care. Assessment: Patient is a 77 year old female referred to physical therapy services with the diagnosis of right total knee infection now s/p Irrigation and Debridement, Synovectomy, and Polyethylene Exchange - RIGHT Knee with NEPTALI Vacuum Assisted Dressing Application, post op day #5 She has a complicated history with her right knee, including TKA 02/2023, followed by development of Right Prosthetic Knee Laxity and Arthrotomy Rupture requiring Arthrotomy and quadriceps repair, Irrigation, debridement, and synovectomy of right knee with polyethylene exchange 09/15/23. She then developed another infection, and underwent surgery as above this morning. She has significant weakness in her non-operative knee, and baseline mobility impairments. She will require extensive PT intervention to maximize mobility and safety requiring HH PT/OT services upon discharge once medically cleared. She presents with the following impairment level findings: 1. decreased LE strength bilat 2. decreased activity tolerance 3. post-op precautions limiting R knee flexion to no >90* Impairments are contributing to the following functional limitations: 1. limited bed mobility 2. unable to independently transfer 3. limited walking tolerance Patient is assessed as Moderate 01119 complexity based on the following: History: As above. Examination: as above Presentation: functional limitations as noted above Decision Making: moderate complexity Goals: Goals X1 week 1. Supine-Sit : supervision 2. Sit-Supine : supervision 3. Sit-Stand : supervision 4. Stand-Sit : supervision 5. Bed-Chair : supervision with FWW 6. Chair-Bed : supervision with FWW 7. Gait : supervision with FWW x 30' Plan of Care/Treatment Plan: 1-2x/day, 7 days/week x 1 week. Plan of care has been reviewed with the SCHOOL ADMISSIONS REPRESENTATIVE providing the service under Physical Therapy direction. Initiate Physical Therapy intervention for strengthening, bed mobility, transfers, gait, stairs, balance training, use of assistive device. DISCHARGE RECOMMENDATIONS: Home with HH PT/OT once medically cleared TREATMENT CODE/TIME: (02316) IE 25 minutes 8:30-8:55 Naya Anna, [facility] Please sign an return this page within 30 days if you agree with the above POC. Thank you! Physician Signature Date [facility] Disclaimer: This note was created using [employer] voice recognition software. It was reviewed for major content. However, there may be multiple small discrepancies and errors due to the voice recognition aspects of the software.
--- NOTE | 2023-11-10 14:32 | PT.INTREAT ---
PT Notes Visit Reasons: Prosthetic Knee Infection-Right Inpatient Physical Therapy Treatment Note [facility] Date: 11/10/23 SUBJECTIVE: Sylvia reports that she is hoping to go home this wknd. She is feeling stronger. Offers no complaints to pain. OBJECTIVE: []? VITALS: ?monitored by nsg. Therapeutic Activities (22373j9): Direct one-on-one instruction in dynamic activities to improve functional performance. ? BED MOBILITY/TRANSFERS? Supine-sit:min A with LE? Sit-stand: min A of 1. bed elevated ? Stand-sit: SBA ? Provided skilled cues and instruction on performance and technique throughout. ? Therapeutic Exercises (60712x7): Direct one-on-one instruction in therapeutic exercises to develop strength, endurance, range of motion and flexibility. ? Exercises ?SLR x10, AP x10, modified bridge x10. Sit to stand x4 Ambulation ? Assistive Device: FWW? Weight bearing: AT R Assist: CGA ? Distance:? approx 35' bed to outside door back to bed to chair. ? Provided skilled instruction in proper exercise performance ASSESSMENT:? tolerated session well. Not comfortable walking in hallway this pm, but was willing to walk laps in her room. No LOB or unsteadiness noted while on her feet. Encouraged her to do her SLR frequently t/o the day to gain more strength. PLAN: will continue to progress strength and functional mobility following PT POC. TREATMENT CODE/TIME: 25 min 48070t9, 43915w0 DISCHARGE RECOMMENDATION: home with
[2023-11-10] MEDS: Docusate Sodium 100 MG CAP PO (15:31)
[2023-11-10] MEDS: cefTRIAXone 2 GM/50 ML BAG IVPB (20:21)
[2023-11-10 20:27] VITALS: BP 120/67; PULSE 102; RESP 16; TEMP 36.7; O2SAT 95
[2023-11-11 07:30] VITALS: BP 106/75; PULSE 108; RESP 15; TEMP 36.6; O2SAT 94
[2023-11-11] MEDS: Insulin Glargine 300 UNITS/3 ML PEN 20 UNITS SC (07:49)
[2023-11-11] MEDS: Metoprolol 50 MG TAB 100 MG PO ×2 (07:50→20:37)
[2023-11-11] MEDS: Acetaminophen 500 MG TAB 1000 MG PO ×3 (07:50→20:37)
[2023-11-11] MEDS: Apixaban 5 MG TAB PO ×2 (07:50→20:37)
[2023-11-11] MEDS: Celecoxib 200 MG CAP PO ×2 (07:51→20:37)
[2023-11-11] MEDS: metFORMIN 500 MG TAB PO (07:51)
[2023-11-11] MEDS: Valsartan 80 MG TAB 320 MG PO (07:51)
[2023-11-11] MEDS: Simvastatin 20 MG TAB PO (07:51)
[2023-11-11] MEDS: Torsemide 10 MG TAB PO (07:51)
[2023-11-11] MEDS: Allopurinol 100 MG TAB PO (07:51)
[2023-11-11] MEDS: rifAMPin 300 MG CAP PO ×2 (07:52→20:37)
--- NOTE | 2023-11-11 09:03 | PT.INTREAT ---
PT Notes Visit Reasons: Prosthetic Knee Infection-Right Inpatient Physical Therapy Treatment Note [facility] Date: 11/11/23 SUBJECTIVE: Sylvia states that walking is getting easier. At home, she has a commode with armrests over her toilet. Feels that she is getting closer to having the strength to walk distances required at home (chair to bathroom, ramp to enter home). OBJECTIVE: ? VITALS: ?monitored by [facility] [place]. Therapeutic Activities (87740i4): Direct one-on-one instruction in dynamic activities to improve functional performance. ? BED MOBILITY/TRANSFERS? Sit-stand: min A of 1 from chair? Stand-sit: SBA ? chair-commode: CGA with FWW and knee immobilizer Provided skilled cues and instruction on performance and technique throughout. ? Therapeutic Exercises (20174w5): Direct one-on-one instruction in therapeutic exercises to develop strength, endurance, range of motion and flexibility. ? Exercises ? SLR 10x2 in chair, performed on each side Sit to stand x4 LAQ 10x left standing hip flexion, knee in extension, 10x each side. CGA at trunk for completion on LLE, with heavy reliance on UE support to FWW during unilateral standing on RLE. Knee immobilizer in place throughout static standing without UE support to walker, 30 seconds with CGA Ambulation ? Assistive Device: FWW? Weight bearing: WBAT RLE with knee immobilizer Assist: CGA ? Distance:? 40' ? ASSESSMENT:? Improving activity tolerance and independence. Continuing to require assistance with sit-stand, however utilizes lift chair at home. Will continue progressing strengthening and ambulation distance to maximize activity tolerance to allow for safe management of household distances. PLAN: will continue to progress strength and functional mobility following PT POC. TREATMENT CODE/TIME: 30 min 89105w1 (2219-4882; [id number]) DISCHARGE RECOMMENDATION: home with HH Narcisa De La Rosa, PT, DPT [place] [facility]
[2023-11-11] MEDS: Normal Saline Flush 10 ML SYR IVP ×2 (09:14→20:39)
[2023-11-11] MEDS: Insulin Aspart 300 UNITS/3 ML PEN SC (12:12)
--- NOTE | 2023-11-11 13:30 | PDOC.CMPRO ---
Date of service: 11/11/23 Time of Service: 13:30 Care Management Progress Note Progress Note Text Progress Note Text: [facility]: $11.40/wk plus supplies and catheter care; [facility] calling to review with Sylvia. CM provided contact for M/S RN if phone contact support is required. CM spoke with [place] reviewing discharge planning considerations; tentative discharge for 11/14/23 if Sylvia is cleared by PT to return home. [facility] referral for IV ABX RN support faxed by [facility] to [facility]. Discharge Potential Discharge Needs: PCP F/U Appt Anticipated Barriers to Discharge: Other (DME IV ABX Coordination, and progress mobility to be cleared by PT to discharge to home ) Patient/Family Education Needs: Review discharge instructions, discuss Ask Me Three Transportation: Private vehicle (with family) SDOH(Care Management) Screening Will the Patient Participate in the Screening?: Declined to provide Anticipated HH Services Anticipated HH Services at Discharge [facility] Services Needed ([facility] IV ABX: RN and PT ).
--- NOTE | 2023-11-11 15:08 | PT.INTREAT ---
PT Notes Visit Reasons: Prosthetic Knee Infection-Right Inpatient Physical Therapy Treatment Note [facility] Date: 11/11/23 SUBJECTIVE: Sylvia states that she is feeling good. OBJECTIVE: ? Therapeutic Exercises (92399l8): Direct one-on-one instruction in therapeutic exercises to develop strength, endurance, range of motion and flexibility. BED MOBILITY/TRANSFERS? Sit-stand: min A of 1 from chair, min A x 1 from commode, CGA from elevated bed ? Stand-sit: SBA ? chair-commode: performed x 1, with min A sit-stand and CGA during ambulation sit-supine: mod A to LEs ? Exercises ? SLR 10x2, one set in chair, one set in supine Sit to stand x5 LAQ 10x left Ambulation ? Assistive Device: FWW? Weight bearing: WBAT RLE with knee immobilizer Assist: CGA ? Distance:? 40'x2, 10'x2 ? ASSESSMENT:? Improving activity tolerance and independence. Continuing to require assistance with sit-stand, however utilizes lift chair at home. Will continue progressing strengthening and ambulation distance to maximize activity tolerance to allow for safe management of household distances. PLAN: will continue to progress strength and functional mobility following PT POC. TREATMENT CODE/TIME: 35 min 34126i0 ([id number]; 2857-4999) DISCHARGE RECOMMENDATION: home with Narcisa De La Rosa, PT, DPT [place] [facility]
[2023-11-11 15:14] VITALS: BP 112/65; PULSE 108; RESP 16; TEMP 36.9; O2SAT 98
[2023-11-11] MEDS: diphenhydrAMINE 25 MG CAP PO ×2 (16:08→22:54)
[2023-11-11 20:32] VITALS: BP 132/70; PULSE 105; RESP 16; TEMP 36.1; O2SAT 96
[2023-11-11] MEDS: cefTRIAXone 2 GM/50 ML BAG IVPB (20:39)
[2023-11-12 07:55] VITALS: BP 143/73; PULSE 72; RESP 17; TEMP 37; O2SAT 98
[2023-11-12] MEDS: Acetaminophen 500 MG TAB 1000 MG PO ×3 (08:11→19:22)
[2023-11-12] MEDS: Torsemide 10 MG TAB PO (08:12)
[2023-11-12] MEDS: Allopurinol 100 MG TAB PO (08:12)
[2023-11-12] MEDS: metFORMIN 500 MG TAB PO (08:12)
[2023-11-12] MEDS: Celecoxib 200 MG CAP PO ×2 (08:12→19:22)
[2023-11-12] MEDS: rifAMPin 300 MG CAP PO ×2 (08:13→19:24)
[2023-11-12] MEDS: Apixaban 5 MG TAB PO ×2 (08:13→19:22)
[2023-11-12] MEDS: Metoprolol 50 MG TAB 100 MG PO ×2 (08:13→19:23)
[2023-11-12] MEDS: Normal Saline Flush 10 ML SYR IVP ×2 (08:14→19:23)
[2023-11-12] MEDS: Valsartan 80 MG TAB 320 MG PO (08:14)
[2023-11-12] MEDS: Simvastatin 20 MG TAB PO (08:14)
[2023-11-12] MEDS: Insulin Aspart 300 UNITS/3 ML PEN SC ×3 (08:15→16:47)
[2023-11-12] MEDS: Insulin Glargine 300 UNITS/3 ML PEN 20 UNITS SC (08:15)
--- NOTE | 2023-11-12 11:48 | PT.INTREAT ---
Date of service: 11/12/23 Time of Service: 10:20 PT Notes Visit Reasons: Prosthetic Knee Infection-Right Inpatient Physical Therapy Treatment Note [facility] Date: 11/12/2023 PRECAUTIONS: Fall, standard and use of knee brace with ambulation. No flexion > 90* SUBJECTIVE: Sylvia stated she was just gotten back to bed after being up for breakfast, but willing to get up to do ambulation and exercises. OBJECTIVE: ? Therapeutic Exercises (97958l6): Focus on strengthening and functional activities with one on one instruction. ? Sit-stand: From elevated bed x 5 reps with min assist of one. ? SLR 10x1 while in supine with right knee immobilize in place and CGA LAQ 10x left Ambulation ? Assistive Device: FWW? Weight bearing: WBAT RLE with knee immobilizer Assist: CGA ? Distance:? 42' ? ASSESSMENT:?Continuing to require min assistance with sit-stand. Will continue progressing strengthening and ambulation distance as tolerated, to maximize activity tolerance for safe management of household distances. PLAN: Continue to focus on strengthening and improved ambulation distance for return to home. TREATMENT CODE/TIME: 63198, 10:20 to 10:40 (20') DISCHARGE RECOMMENDATION: home with
[2023-11-12 15:58] VITALS: BP 103/53; PULSE 98; RESP 16; TEMP 36.5; O2SAT 96
[2023-11-12] MEDS: cefTRIAXone 2 GM/50 ML BAG IVPB (19:24)
[2023-11-12 19:34] VITALS: BP 127/66; PULSE 108; RESP 16; TEMP 36.3; O2SAT 96
[2023-11-12] MEDS: diphenhydrAMINE 25 MG CAP PO (22:51)
[2023-11-13 08:02] VITALS: BP 145/68; PULSE 90; RESP 19; TEMP 36.7; O2SAT 95
[2023-11-13] MEDS: metFORMIN 500 MG TAB PO (08:18)
[2023-11-13] MEDS: Simvastatin 20 MG TAB PO (08:19)
[2023-11-13] MEDS: Celecoxib 200 MG CAP PO ×2 (08:19→19:47)
--- NOTE | 2023-11-13 08:19 | PT.INTREAT ---
Date of service: 11/13/23 Time of Service: 07:45 PT Notes Visit Reasons: Prosthetic Knee Infection-Right Inpatient Physical Therapy Treatment Note [facility] Date: 11/13/2023 PRECAUTIONS: Fall, standard and use of knee brace with ambulation. No flexion > 90* SUBJECTIVE: Eager to get back home tomorrow. No complains of pain prior to ambulation this morning. After ambulation did complain of right knee being a little achy while sitting in recliner chair with legs up. OBJECTIVE: ? Therapeutic Activities (11243v4): Focus on strengthening and functional activities, with one on one instruction. ? Sit-stand: From elevated bed x 1 reps with min assist of one off elevated bed, x 1 with mod assist off commode and x1 with mod assist of 2 off recliner (due to fear of slipping because of slippery chair arms).? SLR 10x1 while in supine with right knee immobilize in place and CGA TA activation with glut set x 8 reps for 5 second each while in supine SAQ 10x 2 on left only, while in supine LAQ 10 x 1 on left only, while sitting on chair Ambulation ? Assistive Device: FWW? Weight bearing: WBAT RLE with knee immobilizer Assist: CGA ? Distance:?[facility]b 30ft and 40ft Slow controlled gait, without complaints of significant discomfort with WBAT on the right ? ASSESSMENT:?Continuing to require min-mod assistance with sit-stand transfers, depending on seat height. Will continue progressing strengthening and ambulation distance as tolerated, to maximize activity tolerance for safe management of household distances. PLAN: Continue to focus on strengthening and improved ambulation distance for return to home. TREATMENT CODE/TIME: 09705, 7:30 to 8:45 (30') DISCHARGE RECOMMENDATION: home with
[2023-11-13] MEDS: Apixaban 5 MG TAB PO ×2 (08:20→19:47)
[2023-11-13] MEDS: rifAMPin 300 MG CAP PO ×2 (08:20→19:47)
[2023-11-13] MEDS: Allopurinol 100 MG TAB PO (08:20)
[2023-11-13] MEDS: Acetaminophen 500 MG TAB 1000 MG PO ×3 (08:20→19:47)
[2023-11-13] MEDS: Metoprolol 50 MG TAB 100 MG PO ×2 (08:21→19:47)
[2023-11-13] MEDS: Valsartan 80 MG TAB 320 MG PO (08:21)
[2023-11-13] MEDS: Torsemide 10 MG TAB PO (08:21)
[2023-11-13] MEDS: Insulin Aspart 300 UNITS/3 ML PEN SC ×2 (08:22→11:59)
[2023-11-13] MEDS: Normal Saline Flush 10 ML SYR IVP ×3 (08:22→23:05)
[2023-11-13] MEDS: Insulin Glargine 300 UNITS/3 ML PEN 20 UNITS SC (08:23)
[2023-11-13 15:28] VITALS: BP 110/64; PULSE 100; RESP 16; TEMP 37.2; O2SAT 96
[2023-11-13 19:50] VITALS: BP 106/62; PULSE 106; RESP 16; TEMP 37.2; O2SAT 93
[2023-11-13] MEDS: cefTRIAXone 2 GM/50 ML BAG IVPB (22:01)
[2023-11-14 00:05] VITALS: BP 117/71; PULSE 88; RESP 22; TEMP 36.7; O2SAT 97
[2023-11-14] MEDS: diphenhydrAMINE 25 MG CAP PO (01:16)
[2023-11-14 06:44] LABS: HCT 30.7 % (36.0-46.0); HGB 9.3 g/dL (11.2-15.7); MCH 24.9 pg (27.0-33.0); MCHC 30.3 % (32.0-36.0); MCV 82 fL (80-95); MPV 9.1 fL (8.0-11.0); Platelet Count 452 10^3/uL (130-400); RBC 3.73 10^6/uL (3.93-5.22); RDW 15.9 % (11.7-14.6); RDW-SD 47.6 fL; WBC 10.21 10^3/uL (4.4-10.8)
[2023-11-14 06:56] LABS: C-Reactive Protein 4.63 mg/dL (<or=0.5)
[2023-11-14 06:59] LABS: ALT 13 U/L (14-59); AST 14 U/L (15-37); Albumin 2.4 g/dL (3.4-5.0); Alkaline Phosphatase 136 U/L (46-116); Anion Gap 6.1 mmol/L (3-11); BUN 21 mg/dL (7-18); Bilirubin, Total 0.25 mg/dL (0.2-1.0); CO2 31.9 mmol/L (21.0-32.0); CREATININE 0.9 mg/dL (0.55-1.02); Calcium 10.4 mg/dL (8.5-10.1); Chloride 104 mmol/L (98-107); Estimated GFR 65.84 (mL/min/1.73m2); Glucose 125 mg/dL (74-106); Potassium 4.3 mmol/L (3.5-5.1); Sodium 142 mmol/L (136-145); Total Protein 7.8 g/dL (6.4-8.2)
[2023-11-14] MEDS: metFORMIN 500 MG TAB PO (08:16)
[2023-11-14] MEDS: Valsartan 80 MG TAB 320 MG PO (08:17)
[2023-11-14] MEDS: Apixaban 5 MG TAB PO (08:17)
[2023-11-14] MEDS: rifAMPin 300 MG CAP PO (08:17)
[2023-11-14] MEDS: Acetaminophen 500 MG TAB 1000 MG PO ×2 (08:18→13:31)
[2023-11-14] MEDS: Metoprolol 50 MG TAB 100 MG PO (08:18)
[2023-11-14] MEDS: Celecoxib 200 MG CAP PO (08:19)
[2023-11-14] MEDS: Simvastatin 20 MG TAB PO (08:19)
[2023-11-14] MEDS: Torsemide 10 MG TAB PO (08:19)
[2023-11-14] MEDS: Allopurinol 100 MG TAB PO (08:19)
[2023-11-14] MEDS: Insulin Glargine 300 UNITS/3 ML PEN 20 UNITS SC (08:20)
[2023-11-14] MEDS: Normal Saline Flush 10 ML SYR IVP ×2 (08:21→15:46)
--- NOTE | 2023-11-14 08:36 | W.PM.DS.N ---
Date of service: 11/14/23 Time of Service: 12:55 DS: Diagnosis Discharge Diagnosis (1) Type 2 diabetes mellitus: Status: Acute (2) Infection of prosthetic right knee joint: Status: Acute Discharge Plan Disposition Patient Disposition: Home W/Home Health Services Condition: Improving Discharge Details Reason For Visit: Prosthetic Knee Infection-Right Admit Date/Time: 11/09/23 18:51 Admit Provider: Sandeep Willett Attending Provider: Sandeep Willett Primary Care Provider: Rachael Mejia Hospital Course Hospital Course: Patient was admitted to the medical/surgical floor for an infection of the prosthetic right knee. She was also noted to have significant hyperglycemia with a increase in A1c from 6.3-9.4. She was taken to the operating room the following day for irrigation, debridement, synovectomy and polyethylene exchange. The surgery was tolerated well without any notable medical, surgical, or anesthetic complications. Mobilization began postoperatively. Hospitalist service was consulted for management of her hyperglycemia. She was started on insulin glargine along with as needed aspart which significantly improved her hyperglycemia. Mercado catheter was discontinued and she was voiding spontaneously. Vitals were stable. Physical therapy worked with the patient and was cleared for discharge home with home health services. Hypertension, atrial fibrillation, and hyperglycemia were all well-controlled at time of discharge. Pain was controlled on oral regimen. All cultures from the knee grew MSSA. Follow-up blood cultures were negative. She was started on the regimen initially of ceftriaxone and vancomycin which was narrowed down to ceftriaxone along with rifampin for biofilm penetration. Home Meds and New Rx's Prescriptions: New insulin glargine [Lantus Solostar U-100 Insulin] 100 unit/mL (3 mL) insulin pen 20 unit subcut QAM Qty: 15 0RF rifampin 300 mg capsule 300 mg PO BID Qty: 60 2RF hydroxyzine HCl 10 mg tablet 10 mg PO TID PRN (Reason: itching) Qty: 30 0RF Continued Eliquis 5 mg tablet 5 mg PO BID Patient Comments: pt unsure allopurinol 100 mg tablet 100 mg PO DAILY metformin 500 mg tablet 500 mg PO DAILY valsartan 320 mg tablet 320 mg PO DAILY Ozempic 1 mg/dose (4 mg/3 mL) pen injector 1 mg subcut QWEEK Patient Comments: pt. unsure of last time celecoxib 200 mg capsule 200 mg PO BID Qty: 60 0RF acetaminophen 500 mg tablet 1,000 mg PO TID Qty: 90 3RF pantoprazole 40 mg tablet,delayed release (DR/EC) 40 mg PO DAILY Qty: 30 0RF torsemide 10 mg tablet 10 mg PO DAILY Patient Comments: TAKE ONE TABLET BY MOUTH EVERY DAY simvastatin 20 mg tablet 20 mg PO DAILY Patient Comments: TAKE ONE TABLET BY MOUTH AT BEDTIME metoprolol succinate 200 mg tablet extended release 24 hr 200 mg PO DAILY Patient Comments: TAKE ONE TABLET BY MOUTH EVERY DAY Discontinued oxycodone 5 mg tablet 5 mg PO Q6H PRN (Reason: pain) Qty: 10 0RF Discharge Instructions Additional Instructions: Total Knee Discharge Instructions Activity: The most important activity is to walk and to work on gentle motion (both flexion and extension). You should try to take short walks a few times a day. It is important that when resting you work on keeping the knee straight. Avoid putting a pillow behind the knee as this will encourage flexion. Work on range of motion exercises as provided by Physical Therapy. - Start outpatient physical therapy within 2 weeks. - You should wear the LAKE hose on both legs for 2 weeks. You may remove these at night. You may also use any compression sock in place of the LAKE hose. - Utilize [employer] to review exercises, see videos on exercises and obtain basic information pertaining to your surgery and your recovery. Dressing: The Mepilex dressing may stay in place until Nov 21. At that point the belinda should be removed. No dressing will be necessary at that time. The wound may get wet. Medications: - You should take Tylenol and anti-inflammatory Celebrex as your primary pain control medications. If the Celebrex is too expensive or not covered, please call the office for another alternative (Advil/Ibuprofen or Naproxen/Aleve) - You have also been prescribed a stomach acid reduction agent Pantoprozole to help reduce stomach acid and reflux. - You will be taking your home dose for Apixaban 5mg twice a day for DVT prevention unless instructed otherwise. - If you have constipation you should take Colace or Miralax (both [id number]). It takes most people 3-4 days to have a bowel movement. - You will continue to take rifampin 3 mg twice daily along with your IV ceftriaxone 2 g daily. Will continue the IV ceftriaxone for minimum of 6 weeks from the time of surgery, ending approximately, December 15. He will continue to take rifampin for 3 months postoperatively and transition from IV ceftriaxone to oral cefoxitin. -You have also been prescribed hydroxyzine to assist with itching about bilateral lower extremities. Follow-up: 2 weeks If you have any acute concerns or questions, please do not hesitate to contact the office at [phone]. You may contact Dr. Willett with any questions after hours through the hospital at [phone] or on his cell phone at [phone]. 1. Encounter Date and Reason I certify that Sylvia Stinson was seen by Sandeep Willett MD on 11/14/23 and that I had a [id number] encounter with this patient that meets the physician face to face encounter requirements. 2. Clinical Findings Supporting Skilled Need and Homebound Status I certify that home health services are medically necessary, include either intermittent senior care and/or physical/speech therapy, and that this patient is homebound in that absences from the home require considerable and taxing effort and are infrequent or of short duration, or are attributable to the need to receive medical care. [X] (a) Attached documentation from encounter provides clinical findings supporting skilled need and homebound status (including what assistance patient requires to leave the home). The encounter with the patient was in whole, or in part, for the following medical condition, which is the primary reason for home health care: Prosthetic Knee Infection-Right Group Home: Sylvia is a 77-year-old female who is recovering from a prosthetic infection of the right knee. She is on 6 weeks of IV antibiotics, ceftriaxone 2 g daily. She will need necessary care for management of the PICC line and administration antibiotics. Stable removal should also occur approximately around November 21. Physical Therapy: Sylvia would benefit from physical therapy to assist with her weightbearing after revision knee arthroplasty for infection. She has no formal restrictions. She may use a knee immobilizer for mobilization as she does have a weak quadriceps. No flexion past 90 degrees. Assist devices at all times. Speech Therapy: Homebound: Sylvia is homebound. She is unable to leave her home unassisted due to weakness and gait dysfunction. 3. Certification and Authentication I certify that I composed the above information based on my clinical judgement relating to this patient's medical condition and, if applicable, clinical findings communicated to me by the NPP or inpatient physician who performed the Home Health Referral. All further orders will be obtained through Dr. Willett Stand Alone Forms: Nursing Discharge Form Referrals: Sandeep Willett MD [ [facility] STAFF PHYSICIAN] - 12/01/23 1:15 pm Activity:: Activity as Tolerated Equipment/Supplies:: Walker Diet:: Carb Counting Discharge Orders Discharge Orders: Discharge Order (Routine); Ordered 11/14/23 Ordered By: Sandeep Willett DS: Summary Time Spent with Patient providing and/or coordinating discharge services: Less than 30 minutes Status at Discharge Functional status at discharge: uses cane/walker Overall status at discharge: patient is progressing back to baseline Mental Status: mental status grossly normal Speech and Movement: speech and movement normal Mood: congruent mood Affect: normal affect Quality:SDOH Health Related Social Needs: No Data to Display Exam Narrative Exam Narrative: No acute distress. Alert and orient x 3. Evaluation of the right knee shows no drainage. No signs of infection. Minimal swelling. She is able to straight leg raise without any defect of the quadriceps. Range of motion 0 to 90 degrees. Sensation intact light touch over the deep and superficial peroneal nerve tibial nerve. Intact ankle dorsiflexion, plantarflexion, great toe extension and flexion. Psych Mental Status: mental status grossly normal Speech and Movement: speech and movement normal Mood: congruent mood Affect: normal affect DS: Data Vitals/I&O Vitals and I&O: Vital Signs Temperature 36.7 C 11/14/23 00:05 Temperature Source Temporal Artery Scan 11/14/23 00:05 Pulse 88 11/14/23 00:05 Pulse Rhythm Irregular 11/14/23 00:05 Respiratory Rate 22 11/14/23 00:05 Respiratory Effort Normal, Non-Labored 11/14/23 00:05 Respiratory Depth Normal 11/13/23 20:23 Respiratory Pattern Normal 11/13/23 20:23 Blood Pressure 117/71 11/14/23 00:05 Pulse Oximetry 97 11/14/23 00:05 Oxygen Delivery Method Room Air 11/14/23 00:05 Oxygen Flow Rate 0 11/14/23 00:05 Pain Level 0 11/14/23 00:05 Comment RN Notified 11/12/23 19:34 Intake & Output 11/13/23 11/13/23 11/14/23 11:59 23:59 11:59 Intake Total 290 / 290 50 / 50 Output Total 1175 / 1675 500 / 1675 700 / 700 Balance -1175 / -1385 -210 / -1385 -650 / -650 Intake: IV 50 / 50 50 / 50 Oral 240 / 240 Output: Urine 1175 / 1675 500 / 1675 700 / 700 Other: Urine Color Yellow Yellow Yellow Urine Appearance Clear Clear Cloudy Urine Odor Normal Normal Comment purewick Purewick. purewick Stool Size Small Large Stool Characteristics Soft Soft Brown Voiding Methods Bedside Commode Diaper Diaper Incontinent Incontinent Data Completed and Pending Labs on day of discharge: Labs from last 24 hours 11/14/23 06:30 WBC 10.21 RBC 3.73 L Hgb 9.3 L Hct 30.7 L MCV 82 MCH 24.9 L MCHC 30.3 L RDW 15.9 H Plt Count 452 H MPV 9.1 Sodium 142 Potassium 4.3 Chloride 104 Carbon Dioxide 31.9 Anion Gap 6.1 BUN 21 H Creatinine 0.9 Est GFR (CKD-EPI 2020) 65.84 Glucose 125 H Uric Acid 6.0 Calcium 10.4 H Total Bilirubin 0.25 AST 14 L ALT 13 L Alkaline Phosphatase 136 H C-Reactive Protein 4.63 H Total Protein 7.8 Albumin 2.4 L PFSH All Active Problems Infection of prosthetic right knee joint (Acute) History of left knee replacement (Acute 04/27/23) History of total right knee replacement (Acute 03/08/23) Type 2 diabetes mellitus (Acute) Acquired cystic kidney disease (Acute) She denies this Medical History Hypertension Bacteremia Atrial fibrillation Hyperlipidemia Cardiac murmur Pt. stated she said it was nothing to worry about, just gave me blood thinners (Pt. has Afib) Urinary incontinence Umbilical hernia Severe obesity Gout Benign neoplasm of adrenal gland Surgical History H/O bilateral breast reduction surgery H/O tubal ligation History of appendectomy H/O abdominoplasty H/O: hysterectomy Hx of cholecystectomy H/O umbilical hernia repair History of colonoscopy date of procedure 11/29/18 History of esophagogastroduodenoscopy Family History Mother Diabetes Granddaughter Diabetes Brother Cancer Social History Smoking/Tobacco Use Status: Former Tobacco Use Quit Date: 04/18/07 Smoking risk assessment performed?: Yes Alcohol Intake: never Drug use: Never Substance use type: does not use Housing: house Do you feel safe at home: Yes Do you feel safe in your relationship?: Yes Additional Social history: Lives with and one grandson in [place]. Granddaughter Vashti helps her with healthcare Time Spent with Patient Time Spent with Patient: <45 minutes Time was spent: preparing to see the patient(eg.review tests), ordering medications,tests, procedures, indepentently interpreting results and counseling the patient
--- NOTE | 2023-11-14 09:27 | PT.DS ---
Supervising Provider: Narcisa De La Rosa PT Diagnosis: prosthetic knee infection, right Diagnosis: prosthetic knee infection, right Weeks Elapsed: week(s) and 0 day(s) Patient Location: Med Surg Referring Provider: Date of Service: November 14, 2023 9:27 am PT Notes Visit Reasons: Prosthetic Knee Infection-Right Inpatient Physical Therapy Discharge Summary Date: 11/14/23 Treatment Dates: November 10, 2023 - November 14, 2023 Referring Doctor: Sandeep Willett PT Orders: PT CONSULT: s/p I&D right TKA. No flexion > 90* Precautions: Standard, No knee flexion > 90 degrees Patient Profile/Admitting Diagnosis: Sylvia admitted for medical management of infection of right TKA, now s/p Irrigation and Debridement, Synovectomy, and Polyethylene Exchange - RIGHT Knee with NEPTALI Vacuum Assisted Dressing Application. 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 She then developed another infection, and underwent surgery as above 11/04/23. She transitioned to Swing bed status for continued rehab with goal of returning home with family support. Social History/Home Situation: Patient lives with in a private home with ramp to enter. Will have support of children and grandchildren at home, with many of them living just a few minutes down the road. She had been ambulating with FWW and brace since her last surgery. Utilizes lift chair at home. Equipment Owned/DME: FWW, lift chair Subjective: Sylvia states that she is feeling good. She's anxious to return home. Feels that walking has been getting easier. Objective: General Observation: Resting in bed, no lines. Mental Status: A&Ox3. Pleasant and cooperative. ROM: Right Upper Extremity: WFL Left Upper Extremity: WFL Right Lower Extremity: Left knee extension is full passively. Functionally demonstrates hip flexion to 80*, knee flexion to 80*. Verbalizes understanding of restrictions in knee flexion without cues. Left Lower Extremity: Left knee 0-90* functionally. Strength: Right Upper Extremity: Triceps 4/5. Biceps 3/5 or greater Left Upper Extremity: Triceps 4/5. Biceps 3/5 or greater Right Lower Extremity: Able to perform active SLR within limited range. Zaira ONTIVEROS 3/5 or greater. Left Lower Extremity: Able to perform LAQ. Ankle DF 3/5 or greater. Balance: Static Sitting:Normal Dynamic Sitting: Good Static Standing: Good Dynamic Standing: Fair Special Tests: Mobility Limitations Standardized Measure [facility] AM-PAC 6 clicks Basic Mobility Inpatient Short Form: Raw Score: 18 CMS Score: 46% impairment Informed Consent/Education: Patient instructed in purpose of PT consult and plan of care. Treatment: Therapeutic Exercises ([id number]): Session consisted of re-evaluation and transfers and ambulation as below for improved activity tolerance. Review HEP. Completed SLR x 5, with significant fatigue, but able to complete independently. Encourage continued completion 3x/day, along with short, frequent walks to improve activity tolerance. Bed Mobility/Transfers: Supine-sit: supervision with HOB at 20*? Sit-supine: mod assist with R LE ? Sit-stand: SBA from elevated bed ? Stand-sit: supervision ? Provided skilled cues and instruction on performance and technique throughout. GAIT? Assistive Device: FWW, right knee immobilizer ? Weight bearing: AT right Assist: SBA? Distance:?Ambulates 10'x2 today. Has ambulated up to 40' during course of care. Assessment: Patient is a 77 year old female referred to physical therapy services with the diagnosis of right total knee infection now s/p Irrigation and Debridement, Synovectomy, and Polyethylene Exchange - RIGHT Knee with NEPTALI Vacuum Assisted Dressing Application, post op day #10. 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 She then developed another infection, and underwent surgery as above 11/04/23. She has baseline mobility impairments, and will have assistance from family upon return home. She will require continued PT intervention to maximize mobility and safety requiring HH PT/OT services upon discharge once medically cleared. At this point, she is appropriate for discharge from PT services in acute care setting with recommendation for return home with family support. Goals: Goals X1 week 1. Supine-Sit : supervision (MET) 2. Sit-Supine : supervision(MET) 3. Sit-Stand : supervision(MET) 4. Stand-Sit : supervision (MET) 5. Bed-Chair : supervision with FWW (MET) 6. Chair-Bed : supervision with FWW(MET) 7. Gait : supervision with FWW x 30' (MET) Plan of Care/Treatment Plan: D/C home with family support once medically cleared DISCHARGE RECOMMENDATIONS: Home with HH PT/OT once medically cleared TREATMENT CODE/TIME: 8:15-8:30; 8:40-8:50 ([id number]) Narcisa De La Rosa, PT, DPT [facility]
[2023-11-14] MEDS: Insulin Aspart 300 UNITS/3 ML PEN SC (11:59)
--- NOTE | 2023-11-14 12:48 | CMDISCH_ITS ---
Date of service: 11/14/23 Time of Service: 12:48 LACE Index Scoring Tool Questions: Length of Stay (in days): 4 - 6 Was the patient admitted via the E.D.?: Yes Comorbidities: Diabetes w/o Complication E.D. Visits: 0 Answers: Total Score: 8 Risk of Readmission: Low Risk Care Management Discharge Plan Reason for Hospitalization: Prosthetic Knee Infection Discharge Plan: Sylvia will return home with new orders for HH RN/PT, and IV ABX through [facility] to continue antibiotic therapy treatment. She will transport via private vehicle with family, follow up with her PCP and plan of care as prescribed. Patient/Family Education Needs: Review discharge instructions, discuss Ask Me Three. Services Needed at Discharge: DME Agency ([facility] IV ABX) and Home Health Care Services SDOH Health Related Social Needs: No Data to Display
[2023-11-14] MEDS: cefTRIAXone 2 GM/50 ML BAG IVPB (15:44)
== END 2023-11-14 17:38 | disposition home health service (06) | DRG 559 ==
PROVIDERS: Admitting Provider Student in an Organized Health Care Education/Training Program; PCP Internal Medicine; Visit Provider Student in an Organized Health Care Education/Training Program
DX: Z47.89 Encounter for other orthopedic aftercare (principal); U07.1 COVID-19; I48.11 Longstanding persistent atrial fibrillation; Z68.42 Body mass index [BMI] 45.0-49.9, adult; E11.65 Type 2 diabetes mellitus with hyperglycemia; T84.53XD Infection and inflammatory reaction due to internal right knee prosthesis, subsequent encounter; I10 Essential (primary) hypertension; E78.5 Hyperlipidemia, unspecified; E66.01 Morbid (severe) obesity due to excess calories; R32 Unspecified urinary incontinence; Z96.653 Presence of artificial knee joint, bilateral; Z79.4 Long term (current) use of insulin; Z79.84 Long term (current) use of oral hypoglycemic drugs
CPT/HCPCS: 80053; 85027; 97110; 97112; 97162; 97530; 99316; 84550; 86140; 99305; J0696; J1815

== ENCOUNTER → 2023-12-01 08:26 | Outpatient (BNVA) | payer MEDICARE, SELFPAY | PROVIDERS: PCP Internal Medicine; Referring Provider Internal Medicine; Visit Provider Student in an Organized Health Care Education/Training Program | DX: T84.53XA Infection and inflammatory reaction due to internal right knee prosthesis, initial encounter; M23.672 Other spontaneous disruption of capsular ligament of left knee; Z96.653 Presence of artificial knee joint, bilateral ==

== ENCOUNTER → 2023-12-30 09:13 | Outpatient (BNVA) | payer MEDICARE, SELFPAY | PROVIDERS: PCP Internal Medicine; Referring Provider Internal Medicine | DX: Z47.1 Aftercare following joint replacement surgery (principal); T84.53XA Infection and inflammatory reaction due to internal right knee prosthesis, initial encounter; M23.672 Other spontaneous disruption of capsular ligament of left knee; Z96.652 Presence of left artificial knee joint ==

== ENCOUNTER → 2024-02-06 09:46 | Outpatient (BNVA) | payer MEDICARE, SELFPAY | PROVIDERS: PCP Internal Medicine; Referring Provider Internal Medicine; Visit Provider Student in an Organized Health Care Education/Training Program | DX: Z47.89 Encounter for other orthopedic aftercare (principal); T84.53XD Infection and inflammatory reaction due to internal right knee prosthesis, subsequent encounter; M23.672 Other spontaneous disruption of capsular ligament of left knee | CPT/HCPCS: 99024 ==

== ENCOUNTER 2024-03-22 10:42 | Outpatient (CLI) | payer MEDICARE, SELFPAY ==
[2024-03-22 10:47] LABS: HCT 32.1 % (36.0-46.0); HGB 9.2 g/dL (11.2-15.7); MCHC 28.7 % (32.0-36.0); MCV 77 fL (80-95); MPV 9.3 fL (8.0-11.0); Platelet Count 259 10^3/uL (130-400); RBC 4.19 10^6/uL (3.93-5.22); WBC 5.72 10^3/uL (4.4-10.8)
[2024-03-22 10:50] LABS: ESR 6 mm/hr (0-30)
[2024-03-22 11:03] LABS: C-Reactive Protein 0.86 mg/dL (<or=0.5)
[2024-03-22 11:07] LABS: RDW 20.5 % (11.7-14.6)
== END 2024-03-22 10:43 | disposition home or self-care (01) ==
LOC: LBO 10:43
PROVIDERS: PCP Internal Medicine; Visit Provider Student in an Organized Health Care Education/Training Program
DX: T84.53XA Infection and inflammatory reaction due to internal right knee prosthesis, initial encounter (principal)
CPT/HCPCS: 36415; 85027; 85652; 86140

== ENCOUNTER 2024-03-22 12:32 | Outpatient (REF) | payer MEDICARE, SELFPAY ==
[2024-03-22 13:31] LABS: Clarity Cloudy
[2024-03-22 13:32] LABS: Mononuclear Cells 13 %; Nucleated Cells 2460 uL (0); Polynuclear Cells 87 %
== END 2024-03-22 12:33 | disposition home or self-care (01) ==
LOC: LBN 12:32
PROVIDERS: PCP Internal Medicine; Visit Provider Student in an Organized Health Care Education/Training Program
DX: T84.53XA Infection and inflammatory reaction due to internal right knee prosthesis, initial encounter (principal)
CPT/HCPCS: 87070; 87205; 89051